=== PATIENT | female | born 1940 | race Caucasian/White ===

== ENCOUNTER 2022-05-05 15:29 | Emergency (ER) | payer OTHER, MEDICAID ==
[~2022-05-05] VITALS: Ht 165.1 cm; Wt 78.0 kg
[2022-05-05 19:06] VITALS: BP 130/52
== END 2022-05-05 19:41 | disposition home or self-care (01) ==
LOC: EDBD 15:29 → EDUNIT# 15:29 → ER 15:29
DX: T18.128A Food in esophagus causing other injury, initial encounter (principal); K22.9 Disease of esophagus, unspecified; X58.XXXA Exposure to other specified factors, initial encounter; Y93.89 Activity, other specified; Y92.89 Other specified places as the place of occurrence of the external cause; Y99.8 Other external cause status
CPT/HCPCS: 70490

== ENCOUNTER 2022-12-21 15:27 | Inpatient (IN) | payer OTHER, MEDICAID ==
[~2022-12-21] VITALS: Ht 160 cm; Wt 80.7 kg
[2022-12-21] MEDS ORDERED: KETOROLAC TROMETH 30 MG/ML 1ML VIAL IV ONE (18:45)
[2022-12-21 19:19] LABS: Albumin 3.1 g/dL (3.4-5.0); Calcium 9.1 mg/dL (8.5-10.1); Potassium 3.7 mmol/L (3.5-5.1)
[2022-12-21 19:22] LABS: BUN/Creatinine Ratio 16.5 (10.0-20.0); Bilirubin, Total 0.3 mg/dL (0.2-1.0); Total Protein 7.6 g/dL (6.4-8.2)
[2022-12-21 19:29] LABS: Basophils # (auto) 0 10 ^3/uL (0-0.2); Basophils % (auto) 0.6 % (0.0-2.0); Eosinophils # (auto) 0 10 ^3/uL (0-0.8); Eosinophils % (auto) 0.2 % (0.0-7.0); Hematocrit 36.4 % (36.0-46.0); Hemoglobin 12.4 g/dL (12.2-16.2); Lymphocytes # (auto) 0.8 10 ^3/uL (0.4-5.4); Lymphocytes % (auto) 12.7 % (10.0-50.0); Mean Corpuscular Hemoglobin 28.8 pg (28.0-32.0); Mean Corpuscular Hgb Conc. 33.9 g/dL (32.0-36.0); Monocytes # (auto) 0.2 10 ^3/uL (0-1.3); Monocytes % (auto) 3.4 % (0.0-12.0); Neutrophils # (auto) 5.4 10 ^3/uL (1.6-8.6); Neutrophils % (auto) 83.1 % (37.0-80.0); Nucleated Red Blood Cells % 0.1 %; Red Blood Cells 4.28 10^6/uL (4.0-5.20); Red Cell Distribution Width 14.4 % (11.8-14.3); White Blood Cell 6.5 10^3/uL (4.4-10.8)
[2022-12-21 20:33] LABS: Urine Amorphous Crystal FEW /hpf (None Seen); Urine Bacteria NONE SEEN /hpf (None Seen); Urine Blood 1+ /uL (Negative); Urine Mucus FEW (None Seen); Urine Specific Gravity 1.016 (1.001-1.035); Urine WBC 47 /hpf (0 - 5)
[2022-12-22] MEDS ORDERED: cefTRIAXone 1GM/50ML D5W 50 ML IV ONE (02:00)
[2022-12-22] MEDS ORDERED: hydrALAZINE HCL 20 MG/ML VL IV ONE (03:15)
[2022-12-22] MEDS ORDERED: ACETAMINOPHEN 325 MG TAB PO PRN (05:15)
[2022-12-22] MEDS ORDERED: LORazepam 0.5 MG TAB PO ONE (05:15)
[2022-12-22] MEDS ORDERED: cloNIDine HCL 0.1 MG TAB PO PRN (05:15)
[2022-12-22] MEDS: HYDROcodone-ACET 5/325MG TAB PO PRN (06:13)
[2022-12-22] MEDS: MORPHINE SULFATE INJ 2 MG/ml SYRG IV PRN ×2 (09:36→16:44)
[2022-12-22] MEDS: PANTOPRAZOLE 40 MG TAB PO SCH (10:10)
[2022-12-22] MEDS: METOPROLOL SUCCINATE XL 50 MG TAB PO SCH (10:10)
[2022-12-22] MEDS: CLOPIDOGREL BISULFATE 75 MG TAB PO SCH (10:10)
[2022-12-22] MEDS ORDERED: DOCUSATE SOD 100 MG CAP PO PRN (14:30)
[2022-12-22] MEDS ORDERED: ONDANSETRON HCL 4 MG/2 ML VIAL IV PRN (14:30)
[2022-12-22] MEDS ORDERED: LOSARTAN POTASSIUM 50 MG TAB PO ONE (14:30)
[2022-12-22] MEDS ORDERED: DEXTROSE (50%) 50ML SYRG IV PRN (14:30)
[2022-12-22] MEDS: ACCU-CHEK COMFORT CURVE STRIP VI SCH (18:54)
[2022-12-22] MEDS: InsuLIN REG 1unit/0.01ml Soln (100units/ml) SC SCH (18:55)
[2022-12-22] MEDS ORDERED: CYAN500L3 PO (19:18)
[2022-12-22] MEDS ORDERED: DULO60CA PO (19:18)
[2022-12-22] MEDS ORDERED: ASCO500T11 PO (19:18)
[2022-12-22] MEDS ORDERED: METO25TA93 PO (19:18)
[2022-12-22] MEDS ORDERED: VITA200T2 PO (19:18)
[2022-12-22] MEDS ORDERED: CLOP75TA70 PO (19:18)
[2022-12-22] MEDS ORDERED: GABA300C10 PO (19:18)
[2022-12-22] MEDS ORDERED: ATO40T PO (19:18)
[2022-12-22] MEDS ORDERED: CHOL20007 PO (19:18)
[2022-12-22] MEDS ORDERED: ASPI-543 PO (19:18)
[2022-12-22] MEDS ORDERED: SERT50TA19 PO (19:18)
[2022-12-22] MEDS ORDERED: ZONI100C43 PO (19:18)
[2022-12-22] MEDS ORDERED: FURO40TA4 PO (19:18)
[2022-12-22 21:46] VITALS: BP 162/69
[2022-12-22] MEDS: cefTRIAXone 1GM/50ML D5W 50 ML IV SCH (22:09)
[2022-12-22] MEDS: HYDROmorphone HCL 2 MG/ML VL/or syr IV PRN (22:09)
[2022-12-22] MEDS: ATORVASTATIN 20 MG TAB PO SCH (22:13)
[2022-12-23] MEDS: InsuLIN REG 1unit/0.01ml Soln (100units/ml) SC SCH ×5 (00:08→23:13)
[2022-12-23] MEDS: ACCU-CHEK COMFORT CURVE STRIP VI SCH ×5 (00:08→23:13)
[2022-12-23] MEDS: HYDROmorphone HCL 2 MG/ML VL/or syr IV PRN ×4 (04:06→22:49)
[2022-12-23 05:00] VITALS: BP 179/78
[2022-12-23 06:31] LABS: INR 1.03 (0.9-1.15); Partial Thromboplastin Time 30.4 sec (24.6-33.4)
[2022-12-23 06:34] LABS: BUN/Creatinine Ratio 19.6 (10.0-20.0); Calcium 9.3 mg/dL (8.5-10.1); Potassium 3.4 mmol/L (3.5-5.1)
[2022-12-23 06:37] LABS: Basophils # (auto) 0 10 ^3/uL (0-0.2); Basophils % (auto) 0.3 % (0.0-2.0); Eosinophils # (auto) 0.1 10 ^3/uL (0-0.8); Eosinophils % (auto) 1.3 % (0.0-7.0); Hematocrit 38.6 % (36.0-46.0); Hemoglobin 12.8 g/dL (12.2-16.2); Lymphocytes # (auto) 1.3 10 ^3/uL (0.4-5.4); Lymphocytes % (auto) 18.9 % (10.0-50.0); Mean Corpuscular Hemoglobin 28.5 pg (28.0-32.0); Mean Corpuscular Hgb Conc. 33.1 g/dL (32.0-36.0); Mean Corpuscular Volume 86.2 fL (80.0-100.0); Monocytes # (auto) 0.4 10 ^3/uL (0-1.3); Monocytes % (auto) 6.2 % (0.0-12.0); Neutrophils # (auto) 4.9 10 ^3/uL (1.6-8.6); Neutrophils % (auto) 73.3 % (37.0-80.0); Nucleated Red Blood Cells % 0.2 %; Red Blood Cells 4.48 10^6/uL (4.0-5.20); Red Cell Distribution Width 14.2 % (11.8-14.3); White Blood Cell 6.7 10^3/uL (4.4-10.8)
[2022-12-23 08:30] VITALS: BP 166/77
[2022-12-23] MEDS: PANTOPRAZOLE 40 MG TAB PO SCH (08:53)
[2022-12-23] MEDS: LOSARTAN POTASSIUM 50 MG TAB PO SCH (08:56)
[2022-12-23] MEDS: CLOPIDOGREL BISULFATE 75 MG TAB PO SCH (08:57)
[2022-12-23] MEDS: METOPROLOL SUCCINATE XL 50 MG TAB PO SCH (08:57)
[2022-12-23] MEDS ORDERED: DULoxetine HCL 30 MG CAP PO ONE (12:00)
[2022-12-23] MEDS ORDERED: POTASSIUM CHLORIDE 20 MEQ, LIDOCAINE 1% (LOCAL ANESTH.) 2 ML in SODIUM CHL 0.9% 100 ML IV ONE (12:00)
[2022-12-23 13:30] VITALS: BP 162/77
[2022-12-23] MEDS: GABAPENTIN 300 MG CAP PO SCH ×2 (13:41→21:42)
[2022-12-23 16:30] VITALS: BP 174/69
[2022-12-23] MEDS ORDERED: FUROSEMIDE 40 MG/4 ML VIAL IV ONE (17:15)
[2022-12-23] MEDS: cefTRIAXone 1GM/50ML D5W 50 ML IV SCH (21:42)
[2022-12-23] MEDS: ATORVASTATIN 20 MG TAB PO SCH (21:42)
[2022-12-23 22:00] VITALS: BP 157/57
[2022-12-24 05:00] VITALS: BP 133/62
[2022-12-24] MEDS: InsuLIN REG 1unit/0.01ml Soln (100units/ml) SC SCH ×4 (06:00→23:32)
[2022-12-24 06:13] LABS: Basophils # (auto) 0 10 ^3/uL (0-0.2); Basophils % (auto) 0.4 % (0.0-2.0); Eosinophils # (auto) 0.1 10 ^3/uL (0-0.8); Eosinophils % (auto) 1.8 % (0.0-7.0); Hemoglobin 12.7 g/dL (12.2-16.2); Lymphocytes # (auto) 1.3 10 ^3/uL (0.4-5.4); Mean Corpuscular Hemoglobin 28.9 pg (28.0-32.0); Mean Corpuscular Hgb Conc. 33.5 g/dL (32.0-36.0); Mean Corpuscular Volume 86.3 fL (80.0-100.0); Monocytes # (auto) 0.5 10 ^3/uL (0-1.3); Monocytes % (auto) 7.5 % (0.0-12.0); Neutrophils # (auto) 4.7 10 ^3/uL (1.6-8.6); Neutrophils % (auto) 70.3 % (37.0-80.0); Nucleated Red Blood Cells % 0.1 %; Red Cell Distribution Width 14.5 % (11.8-14.3); White Blood Cell 6.7 10^3/uL (4.4-10.8)
[2022-12-24 06:30] LABS: Potassium 3.4 mmol/L (3.5-5.1)
[2022-12-24 06:35] LABS: BUN/Creatinine Ratio 20.6 (10.0-20.0); Calcium 9.1 mg/dL (8.5-10.1)
[2022-12-24] MEDS: GABAPENTIN 300 MG CAP PO SCH ×3 (06:53→21:40)
[2022-12-24] MEDS: ACCU-CHEK COMFORT CURVE STRIP VI SCH ×4 (06:53→23:32)
[2022-12-24 09:00] VITALS: BP 138/49
[2022-12-24] MEDS: METOPROLOL SUCCINATE XL 50 MG TAB PO SCH (10:15)
[2022-12-24] MEDS: SERTRALINE HCL 50 MG TAB PO SCH (10:15)
[2022-12-24] MEDS: DULoxetine HCL 30 MG CAP PO SCH (10:15)
[2022-12-24] MEDS: LOSARTAN POTASSIUM 50 MG TAB PO SCH (10:16)
[2022-12-24] MEDS: LORazepam 0.5 MG TAB PO PRN (10:16)
[2022-12-24] MEDS: CLOPIDOGREL BISULFATE 75 MG TAB PO SCH (10:16)
[2022-12-24] MEDS ORDERED: POTASSIUM CHL 20 Meq TABLET PO ONE (12:45)
[2022-12-24 13:00] VITALS: BP 133/62
[2022-12-24] MEDS: HYDROcodone-ACET 5/325MG TAB PO PRN (15:02)
[2022-12-24 17:00] VITALS: BP 137/70
[2022-12-24] MEDS: cefTRIAXone 1GM/50ML D5W 50 ML IV SCH (21:39)
[2022-12-24] MEDS: ATORVASTATIN 20 MG TAB PO SCH (21:39)
[2022-12-24 22:00] VITALS: BP 100/44
[2022-12-25 05:00] VITALS: BP 119/58
[2022-12-25 06:12] LABS: BUN/Creatinine Ratio 28.7 (10.0-20.0); Calcium 9.2 mg/dL (8.5-10.1); Potassium 3.9 mmol/L (3.5-5.1)
[2022-12-25] MEDS: InsuLIN REG 1unit/0.01ml Soln (100units/ml) SC SCH ×4 (06:32→23:50)
[2022-12-25] MEDS: GABAPENTIN 300 MG CAP PO SCH ×3 (06:41→22:10)
[2022-12-25] MEDS: ACCU-CHEK COMFORT CURVE STRIP VI SCH ×4 (06:41→23:50)
[2022-12-25 08:55] VITALS: BP 133/75
[2022-12-25] MEDS: CLOPIDOGREL BISULFATE 75 MG TAB PO SCH (10:02)
[2022-12-25] MEDS: SERTRALINE HCL 50 MG TAB PO SCH (10:02)
[2022-12-25] MEDS: LOSARTAN POTASSIUM 50 MG TAB PO SCH (10:02)
[2022-12-25] MEDS: METOPROLOL SUCCINATE XL 50 MG TAB PO SCH (10:03)
[2022-12-25] MEDS: DULoxetine HCL 30 MG CAP PO SCH (10:05)
[2022-12-25 12:50] VITALS: BP 147/96
[2022-12-25 16:50] VITALS: BP 118/65
[2022-12-25 22:00] VITALS: BP 139/56
[2022-12-25] MEDS: cefTRIAXone 1GM/50ML D5W 50 ML IV SCH (22:09)
[2022-12-25] MEDS: HYDROcodone-ACET 5/325MG TAB PO PRN (22:10)
[2022-12-25] MEDS: ATORVASTATIN 20 MG TAB PO SCH (22:10)
[2022-12-26 05:00] VITALS: BP 157/78
[2022-12-26] MEDS: InsuLIN REG 1unit/0.01ml Soln (100units/ml) SC SCH ×4 (06:00→23:22)
[2022-12-26 06:12] LABS: Basophils # (auto) 0 10 ^3/uL (0-0.2); Basophils % (auto) 0.4 % (0.0-2.0); Eosinophils # (auto) 0.2 10 ^3/uL (0-0.8); Eosinophils % (auto) 2.4 % (0.0-7.0); Hematocrit 39.1 % (36.0-46.0); Lymphocytes # (auto) 1.6 10 ^3/uL (0.4-5.4); Lymphocytes % (auto) 24.8 % (10.0-50.0); Mean Corpuscular Hemoglobin 28.5 pg (28.0-32.0); Mean Corpuscular Hgb Conc. 33.2 g/dL (32.0-36.0); Mean Corpuscular Volume 85.9 fL (80.0-100.0); Monocytes # (auto) 0.5 10 ^3/uL (0-1.3); Monocytes % (auto) 7.8 % (0.0-12.0); Neutrophils # (auto) 4.1 10 ^3/uL (1.6-8.6); Neutrophils % (auto) 64.6 % (37.0-80.0); Nucleated Red Blood Cells % 0.1 %; Red Blood Cells 4.55 10^6/uL (4.0-5.20); Red Cell Distribution Width 14.6 % (11.8-14.3); White Blood Cell 6.4 10^3/uL (4.4-10.8)
[2022-12-26 06:23] LABS: Albumin 3.1 g/dL (3.4-5.0); Calcium 8.8 mg/dL (8.5-10.1); Magnesium 2.5 mg/dL (1.6-2.6); Potassium 3.8 mmol/L (3.5-5.1)
[2022-12-26 06:28] LABS: BUN/Creatinine Ratio 27.2 (10.0-20.0); Bilirubin, Total 0.4 mg/dL (0.2-1.0); Phosphorus 3.8 mg/dL (2.5-4.90); Total Protein 7.3 g/dL (6.4-8.2)
[2022-12-26] MEDS: GABAPENTIN 300 MG CAP PO SCH ×3 (07:00→21:26)
[2022-12-26] MEDS: ACCU-CHEK COMFORT CURVE STRIP VI SCH ×4 (07:00→23:22)
[2022-12-26 09:00] VITALS: BP 160/60
[2022-12-26] MEDS: CLOPIDOGREL BISULFATE 75 MG TAB PO SCH (09:12)
[2022-12-26] MEDS: DULoxetine HCL 30 MG CAP PO SCH (09:12)
[2022-12-26] MEDS: METOPROLOL SUCCINATE XL 50 MG TAB PO SCH (09:13)
[2022-12-26] MEDS: LOSARTAN POTASSIUM 50 MG TAB PO SCH (09:13)
[2022-12-26] MEDS: SERTRALINE HCL 50 MG TAB PO SCH (09:13)
[2022-12-26] MEDS ORDERED: MORPHINE SULFATE INJ 2 MG/ml SYRG IV PRN (12:30)
[2022-12-26 13:00] VITALS: BP 125/59
[2022-12-26] MEDS: HYDROcodone-ACET 5/325MG TAB PO PRN (13:14)
[2022-12-26 16:55] VITALS: BP 129/47
[2022-12-26] MEDS: cefTRIAXone 1GM/50ML D5W 50 ML IV SCH (21:26)
[2022-12-26] MEDS: ATORVASTATIN 20 MG TAB PO SCH (21:26)
[2022-12-26 22:00] VITALS: BP 117/52
[2022-12-27 05:02] VITALS: BP 106/49
[2022-12-27] MEDS: GABAPENTIN 300 MG CAP PO SCH ×3 (06:13→21:30)
[2022-12-27] MEDS: ACCU-CHEK COMFORT CURVE STRIP VI SCH ×4 (06:13→23:22)
[2022-12-27] MEDS: InsuLIN REG 1unit/0.01ml Soln (100units/ml) SC SCH ×4 (06:17→23:24)
[2022-12-27 08:21] VITALS: BP 118/46
[2022-12-27] MEDS: DULoxetine HCL 30 MG CAP PO SCH (09:40)
[2022-12-27] MEDS: SERTRALINE HCL 50 MG TAB PO SCH (09:41)
[2022-12-27] MEDS: CLOPIDOGREL BISULFATE 75 MG TAB PO SCH (09:42)
[2022-12-27] MEDS: METOPROLOL SUCCINATE XL 50 MG TAB PO SCH (09:44)
[2022-12-27] MEDS: LOSARTAN POTASSIUM 50 MG TAB PO SCH (09:45)
[2022-12-27] MEDS: HYDROcodone-ACET 5/325MG TAB PO PRN (09:55)
[2022-12-27 12:32] VITALS: BP 137/59
[2022-12-27] MEDS: LORazepam 0.5 MG TAB PO PRN (14:19)
[2022-12-27 16:37] VITALS: BP 115/64
[2022-12-27] MEDS: ATORVASTATIN 20 MG TAB PO SCH (21:30)
[2022-12-27] MEDS: cefTRIAXone 1GM/50ML D5W 50 ML IV SCH (21:30)
[2022-12-27 22:00] VITALS: BP 123/45
[2022-12-28 04:51] VITALS: BP 128/61
[2022-12-28] MEDS: GABAPENTIN 300 MG CAP PO SCH ×2 (05:24→14:11)
[2022-12-28] MEDS: ACCU-CHEK COMFORT CURVE STRIP VI SCH ×3 (05:29→17:59)
[2022-12-28] MEDS: InsuLIN REG 1unit/0.01ml Soln (100units/ml) SC SCH ×3 (05:32→18:00)
[2022-12-28 09:00] VITALS: BP 139/56
[2022-12-28] MEDS: METOPROLOL SUCCINATE XL 50 MG TAB PO SCH (10:00)
[2022-12-28] MEDS: CLOPIDOGREL BISULFATE 75 MG TAB PO SCH (10:14)
[2022-12-28] MEDS: LOSARTAN POTASSIUM 50 MG TAB PO SCH (10:14)
[2022-12-28] MEDS: SERTRALINE HCL 50 MG TAB PO SCH (10:14)
[2022-12-28] MEDS: DULoxetine HCL 30 MG CAP PO SCH (10:14)
[2022-12-28 12:40] VITALS: BP 153/80
[2022-12-28] MEDS ORDERED: CELE200C PO (13:54)
[2022-12-28] MEDS ORDERED: CELECOXIB 100 MG CAP PO ONE (14:00)
[2022-12-28 16:08] VITALS: BP 139/52
[2022-12-28 16:28] VITALS: BP 139/52
== END 2022-12-28 20:22 | disposition home or self-care (01) | DRG 690 ==
LOC: ER 15:27 → EDBD 15:27 → EDUNIT# 15:27 → OVERFLOW 12-22 05:06 → WEST WING 12-22 18:06
PROVIDERS: ADMIT Nurse Practitioner; ATTEND Internal Medicine
DX: N13.6 Pyonephrosis (principal); E44.0 Moderate protein-calorie malnutrition; E11.42 Type 2 diabetes mellitus with diabetic polyneuropathy; I10 Essential (primary) hypertension; I25.10 Atherosclerotic heart disease of native coronary artery without angina pectoris; Z95.1 Presence of aortocoronary bypass graft; N13.9 Obstructive and reflux uropathy, unspecified; F32.A Depression, unspecified; E66.9 Obesity, unspecified; M19.90 Unspecified osteoarthritis, unspecified site; M47.9 Spondylosis, unspecified; E78.5 Hyperlipidemia, unspecified; J44.9 Chronic obstructive pulmonary disease, unspecified; Z68.31 Body mass index [BMI] 31.0-31.9, adult
CPT/HCPCS: 36415; 71045; 72192; 73502; 76775; 78707; 80048; 80053; 81001; 82962; 83036; 83735; 84100; 84132; 85025; 85610; 85730; 87086; 87426; 93306; 96365; 96375; 97110; 97116; 97163; 97530; G0378; J0696; J1815; J1885; J2001

== ENCOUNTER 2023-04-11 13:04 | Emergency (ER) | payer OTHER, MEDICAID ==
[~2023-04-11] VITALS: Ht 162.6 cm; Wt 72.7 kg
[~2023-04-11 13:04] MED LIST: ASCO500T11 PO; ASPI-543 PO; ATO40T PO; CELE200C PO; CHOL20007 PO; CLOP75TA70 PO; CYAN500L4 PO; DULO60CA41 PO; FURO40TA4 PO; GABA-1250 PO; METO25TA93 PO; SERT-206 PO; VITA200T2 PO; ZONI100C43 PO
[2023-04-11 14:38] LABS: Basophils # (auto) 0 10 ^3/uL (0-0.2); Basophils % (auto) 0.5 % (0.0-2.0); Eosinophils # (auto) 0.2 10 ^3/uL (0-0.8); Eosinophils % (auto) 3.4 % (0.0-7.0); Hematocrit 36.8 % (36.0-46.0); Hemoglobin 11.9 g/dL (12.2-16.2); Lymphocytes # (auto) 1.5 10 ^3/uL (0.4-5.4); Lymphocytes % (auto) 21.4 % (10.0-50.0); Mean Corpuscular Hgb Conc. 32.3 g/dL (32.0-36.0); Mean Corpuscular Volume 89.8 fL (80.0-100.0); Monocytes # (auto) 0.6 10 ^3/uL (0-1.3); Neutrophils # (auto) 4.7 10 ^3/uL (1.6-8.6); Neutrophils % (auto) 66.7 % (37.0-80.0); Nucleated Red Blood Cells % 0.1 %; Red Blood Cells 4.09 10^6/uL (4.0-5.20); Red Cell Distribution Width 15.1 % (11.8-14.3); White Blood Cell 7.1 10^3/uL (4.4-10.8)
[2023-04-11 15:01] LABS: Calcium 8.7 mg/dL (8.5-10.1); Potassium 3.6 mmol/L (3.5-5.1)
[2023-04-11 15:07] LABS: Albumin 3.4 g/dL (3.4-5.0); BUN/Creatinine Ratio 12.4 (10.0-20.0); Bilirubin, Total 0.3 mg/dL (0.2-1.0); Total Protein 7.5 g/dL (6.4-8.2)
[2023-04-11 16:22] LABS: INR 1.03 (0.9-1.15)
[2023-04-11] MEDS ORDERED: DOXY-286 PO (17:29)
[2023-04-11] MEDS ORDERED: DOXYCYCLINE 100 MG TAB/CAP PO ONE (17:30)
[2023-04-11 18:29] VITALS: BP 131/62; PULSE 81; RESP 17; O2SAT 93
== END 2023-04-11 18:32 | disposition home or self-care (01) ==
LOC: EDBD 13:04 → ER 13:04
DX: L03.116 Cellulitis of left lower limb (principal); R22.42 Localized swelling, mass and lump, left lower limb; Z87.442 Personal history of urinary calculi; Z98.890 Other specified postprocedural states; Z79.82 Long term (current) use of aspirin; Z79.899 Other long term (current) drug therapy
CPT/HCPCS: 36415; 71275; 80053; 83880; 85025; 85379; 85610; 85730; 93971; 99285; Q9967

== ENCOUNTER → 2023-07-25 | Outpatient (CLI) | payer OTHER ==
[~2023-07-25] MED LIST changes: +BUPR-346 PO; +CLIN150C PO; +CLOP75TA28 PO; +FURO1TAB31 PO; +SPIR25TA PO
== END | disposition home or self-care (01) ==
LOC: Rad HDHVI 12:58
PROVIDERS: ATTEND Internal Medicine Cardiovascular Disease
DX: I08.3 Combined rheumatic disorders of mitral, aortic and tricuspid valves (principal); I50.32 Chronic diastolic (congestive) heart failure; E78.5 Hyperlipidemia, unspecified
CPT/HCPCS: 93306

== ENCOUNTER 2024-09-10 14:25 | Inpatient (IN) | payer OTHER, MEDICAID ==
[~2024-09-10] VITALS: Ht 160 cm; Wt 78.1 kg
[~2024-09-10 14:25] MED LIST changes: -ATO40T PO; +ATOR-507 PO; +ATOR10TA PO; +GLIP5TAB21 PO; +HYDR-4798 PO; +HYDR50TA69 PO; +SPIR25TA8 PO
--- NOTE | 2024-09-10 16:18 | ED.PDOC ---
Foreign Body HPI Comments 83 year old female patient in wheelchair brought in by caregiver to the emergency room for a sensation in the middle of chest. Patient states that she was eating a cookie on Monday and felt it get stuck in her chest. Patient states that this has happened to her previously and she has had to make herself vomit to get the piece of food out. Patient states that she has difficulty with chewing food because she does not wear her dentures. Patient usually gums her food or eats mushy foods so that she does not choke. Patient denies any burning sensations in her chest. Patient denies any shortness of breath. Patient states that she feels like there is something is in her chest near the midsternal area. Patient states that when she tries to eat or drink anything it causes her to vomit or spit it up. Chief Complaint: Foreign Body Time Seen by MD: 14:42 Primary Care Provider: ABEL Allergies: Coded Allergies: NO KNOWN ALLERGIES (Unverified , 12/22/22) Home Meds Active Scripts Spironolactone (Aldactone) 25 Mg Tab, 25 MG PO DAILY for 30 Days, #30 TAB Prov:ANA MARIA KIRK MD 05/08/23 Clindamycin Hcl (CLEOCIN) 150 Mg Cap, 1 CAP PO TID, #30 CAP Prov:DIXIE MORAN MD 04/27/23 Celecoxib (Celebrex) 200 Mg Cap, 200 MG PO DAILY for 30 Days, #30 CAP Prov:MAURA NICOLE MD 12/28/22 Reported Medications Bupropion Hcl (Bupropion Hcl) 100 Mg Tab, 300 MG PO HS, TAB 05/05/23 Furosemide (Lasix) 40 Mg Tab, 40 MG PO DAILY, TAB 05/05/23 Gabapentin (Gabapentin) 300 Mg Cap, 300 MG PO TID for 30 Days, MG 05/05/23 Atorvastatin Calcium (Lipitor) 40 Mg Tab, 40 MG PO HS, TAB 05/05/23 Duloxetine Hcl (Cymbalta) 60 Mg Cap, 60 MG PO HS, CAP 05/05/23 Clopidogrel Bisulfate (Plavix) 75 Mg Tab, 75 MG PO HS, TAB 05/05/23 Zonisamide (Zonisamide) 100 Mg Cap, 100 MG PO HS, CAP 05/05/23 Cholecalciferol (VITAMIN D3) 2,000 Unit Tab, 1000 UNIT PO DAILY, TAB 12/22/22 Ascorbic Acid (VITAMIN C TABLET) 500 Mg Tb, 2 TAB PO DAILY, #30 TAB 3 Refills 12/22/22 Cyanocobalamin (Vitamin B 12) 500 Mcg Julián, 1000 MCG PO DAILY, JULIÁN 12/22/22 Alpha Tocopheryl Acid Succinat (VITAMIN E) 200 Unit Tab, 180 UNIT PO DAILY, TAB 12/22/22 Aspirin (Aspir-Low) 81 Mg Tab, 81 MG PO DAILY for 30 Days, MG 12/22/22 Sertraline Hcl (Sertraline Hcl) 50 Mg Tab, 100 MG PO DAILY, MG 12/22/22 Metoprolol Succinate (Metoprolol Succinate Er) 25 Mg Tab, 1 TAB PO DAILY, #30 TAB 5 Refills 12/22/22 Furosemide (Furosemide) 40 Mg Tab, 40 MG PO DAILY for 30 Days 12/22/22 Gabapentin (Gabapentin) 300 Mg Cap, 600 MG PO TID for 30 Days, MG 12/22/22 Atorvastatin Calcium (Lipitor) 40 Mg Tab, 1 TAB PO QPM, #90 TAB 1 Refill 12/22/22 Duloxetine Hcl (Cymbalta) 60 Mg Cap, 1 CAP PO HS, #90 CAP 3 Refills 12/22/22 Clopidogrel Bisulfate (CLOPIDOGREL) 75 Mg Tab, 75 MG PO HS for 30 Days, MG 12/22/22 Zonisamide (Zonisamide) 100 Mg Cap, 100 MG PO HS, CAP 12/22/22 Mode of Arrival: Ambulatory Past Medical History PAST MEDICAL HISTORY: Cancer, CHF, CKF, COPD, CVA, High Lipids, Kidney Stones Surgical History: Appendectomy, CABG, Cholecystectomy, Hysterectomy, Tonsillectomy NEWS ASSIGNMENT EDITOR History: No Pertinent NEWS ASSIGNMENT EDITOR History Family History Family History: Reviewed,noncontributory to illness, No family hx of Cancer, No family hx of DM, No family hx of Heart heath, No family hx of HTN, No family hx ofKidney heath, No family hx of Liver heath, No family hx of Lung heath, No family hx of Stroke Social History Smoker: Non-Smoker Alcohol: Denies ETOH Use Drugs: Denies Drug Use Lives In: Home Constitutional: denies: chills, diaphoresis, fatigue, fever, malaise, sweats, weakness, others EENTM: denies: blurred vision, double vision, ear bleeding, ear discharge, ear drainage, ear pain, ear ringing, eye pain, eye redness, hearing loss, mouth pain, mouth swelling, nasal discharge, nose bleeding, nose congestion, nose pain, photophobia, tearing, throat pain, throat swelling, voice changes, others Respiratory: denies: cough, hemoptysis, orthopnea, SOB at rest, shortness of breath, SOB with excertion, stridor, wheezing, others Gastrointestinal: reports: dysphagia, difficulty swallowing, vomiting; denies: abdomen distended, abdominal pain, blood streaked bowels, constipated, diarrhea, hematemesis, melena, nausea, poor appetite, poor fluid intake, rectal bleeding, rectal pain, others Genitourinary: denies: abnormal vagina bleeding, burning, dyspareunia, dysuria, flank pain, frequency, hematuria, incontinence, pain, , vagina discharge, urgency, others Neurological: denies: dizziness, fainting, headache, left sided numbness, left sided weakness, numbness, paresthesia, pre-existing deficit, right sided numbness, right sided weakness, seizure, speech problems, tingling, tremors, weakness, others Musculoskeletal: denies: back pain, gout, joint pain, joint swelling, muscle pain, muscle stiffness, neck pain, others Integumetry: denies: bruises, change in color, change in hair/nails, dryness, laceration, lesions, lumps, rash, wounds, others Allergic/Immunocompromised: denies: Difficulty Healing, Frequent Infections, Hives, Itching, others Hematologic/Lymphatic: denies: anemia, blood clots, easy bleeding, easy bruising, swollen glands, others Endocrine: denies: excessive hunger, excessive sweating, excessive thirst, excessive urination, flushing, intolerance to cold, intolerance to heat, unexplained weight gain, unexplained weight loss, others Psychiatric: denies: anxiety, bipolar disorder, depression, hopeless, panic disorder, schizophrenia, sleepless, suicidal, others All Other Systems: Reviewed and Negative Physical Exam General Appearance: No Apparent Distress, Normal HEENT: Normal ENT Inspection, Pharynx Normal, TMs Normal Neck: Full Range of Motion, Non-Tender, Normal, Normal Inspection Respiratory: Lungs Clear, No Accessory Muscle Use, No Respiratory Distress, Normal Breath Sounds, Other (tenderness to the midsternal area) Cardiovascular: No Edema, No JVD, No Murmur, No Gallop, Normal Peripheral Pulses, Regular Rate/Rhythm Breast Exam: Deferred Gastrointestinal: No Organomegaly, Non Tender, No Pulsatile Mass, Normal Bowel Sounds, Soft Genitalia: Deferred Pelvic: Deferred Rectal: Deferred Extremities: No calf tenderness, Normal capillary refill, Normal inspection, Normal range of motion, Non-tender, No pedal edema Musculoskeletal : Apperance: Normal Neurologic: Alert, dock attendant II-XII nml as Tested, No Motor Deficits, Normal Affect, Normal Mood, No Sensory Deficits Cerebellar Function: Normal Reflexes: Normal Skin: Dry, Normal Color, Warm Lymphatic: No Adenopathy Was a procedure done? Was a procedure done?: No FB Differential Dx Differential Diagnosis: Esophageal Obstruction, Foreign Body, Other (aspiration pneumonia, esophageal strictures) X-Ray, Labs, Meds, VS Vital Signs Date Time Temp Pulse Resp B/P (MAP) Pulse Ox O2 Delivery O2 Flow Rate FiO2 09/10/24 14:33 97.9 82 20 142/87 (105) 99 PATIENT: DELONTE GLORIA ACCT: [id number] UNIT: [id number] : 1940 LOC: ER ROOM / BED: / AGE / SEX: 84 / F ADM STATUS: REG ER SERVICE 1548 ORDERING PHYSICIAN: NICO MORILLO PROCEDURE(s): CXR2 - CHEST TWO VIEWS ROUTINE REASON: FB AFTER EATING ORDER NUMBER(s): [id number], ACCESSION NUMBER(s): [id number] XY CHEST TWO VIEWS ROUTINE CLINICAL HISTORY: FB AFTER EATING COMPARISON: Chest radiograph 05/04/2023 TECHNIQUE: Frontal and lateral view of the chest was obtained FINDINGS: Lines and Tubes: None. Midline sternotomy wires vascular clips projecting over the heart and mediastinum, suggestive of prior CABG. Lungs: Right cardiophrenic angle patchy opacities.. Diffuse bilateral interstitial opacities. Pleura: No effusion. No pneumothorax. Cardiomediastinal contours: Unremarkable Bones: No acute osseous abnormality. IMPRESSION: 1. No definite radiopaque esophageal foreign body is appreciated. 2. Right cardiophrenic angle alveolar opacities with diffuse bilateral interstitial prominence. Findings could represent aspiration / infiltrate, pulmonary vascular congestion atypical infection, chronic interstitial disease with superimposed consolidation, and/or pneumonitis. HS:Y ATED BY: NATALIE BOX DO DICTATED DATE/TIME: 09/10/241621 SIGNED BY: NATALIE BOX DO SIGNED DATE/TIME: 09/10/241621 CC: X-Ray, Labs, Meds, VS Comment Patient is sitting up in wheelchair with caregiver at bedside. Patient has no emesis bag. Patient has had no vomiting or spitting up while waiting in the emergency room. Patient and caregiver given results of the chest x-ray and are aware that his CT scan is necessary. Pt taken to CT of 1637. CT Chest reports aspiration pneumonitis. Pt advised that she will be admitted. Patient advised that we will start antibiotic treatment and the choking monitoring in the hospital. Patient's main concern is that she has a pain pump on her left side. Patient reports that she has had this pain for years due to lower back pain and cervical pain. Time of 1ST Reevaluation: 16:17 Reevaluation 1ST: Unchanged Time of 2ND Reevaluation: 18:06 Reevaluation 2ND: Unchanged Consultation: PCP Patient Education/Counseling: Diagnosis, Treatment, Prognosis, Need For Follow Up Family Education/Counseling: Diagnosis, Treatment, Prognosis, Need For Follow Up Departure 1 Departure Time of Disposition: 17:29 Impression: Primary Impression: Aspiration pneumonia Additional Impression: Ground glass opacity present on imaging of lung Disposition: ADMITTED INPATIENT Condition: Stable Critical Care Note Critical Care Time?: No Stability Stability form required: No Heart Score Heart Score: Heart Score Response (Comments) Value History N/A 0 EKG N/A 0 Age N/A 0 Risk Factors N/A 0 Troponin N/A 0 Total 0 NICO MORILLO Sep 10, 2024 16:18
--- NOTE | 2024-09-10 16:24 | DVH ---
XY CHEST TWO VIEWS ROUTINE CLINICAL HISTORY: FB AFTER EATING COMPARISON: Chest radiograph 05/04/2023 TECHNIQUE: Frontal and lateral view of the chest was obtained FINDINGS: Lines and Tubes: None. Midline sternotomy wires vascular clips projecting over the heart and mediast inum, suggestive of prior CABG. Lungs: Right cardiophrenic angle patchy opacities.. Diffuse bilateral interstitial opacities. Pleura: No effusion. No pneumothorax. Cardiomediastinal contours: Unremarkable Bones: No acute osseous abnormality. IMPRESSION: 1. No definite radiopaque esophageal foreign body is appreciated. 2. Right cardiophrenic angle alveolar opacities with diffuse bilateral interstitial prominence. Findi ngs could represent aspiration / infiltrate, pulmonary vascular congestion atypical infection, chroni c interstitial disease with superimposed consolidation, and/or pneumonitis. HS:Y
--- NOTE | 2024-09-10 17:06 | DVH ---
Procedure: CT CHEST WITHOUT CONTRAST Reason for study/Clinical History: 84 years old, Female; possible aspiration. Comparison Study: None available at time of dictation. Exam Date: 09/10/2024 04:43 PM TECHNIQUE: Multidetector CT of the chest was performed from the lung apices to the upper abdomen with out the use of intravenous contract. Axial, coronal and sagittal multiplanar reformats were performed . Radiation dose Information: CT Dose: CTDI volume is 8.73 mGy. Dose-length product is 301.56 mGy*cm The dose indicators for CT are the volume computed Tomography (CT) dose Index (CTDIvol) and the dose Length product (DLP), and are measured in units of mGy and mGy-cm, respectively. These indicators are not patient dose, but values generated from the CT scanner acquisition factors. The report includes radiation exposure data for exposures received during this examination. FINDINGS: Lower neck: Calcified nodule right thyroid. Lungs: Mild subpleural ground-glass opacity left lower lung. Heart/Vascular Structures: Normal heart size. No pericardial effusion. Severe coronary artery calcifi cations. Lymph Nodes: No adenopathy Pleura: No pleural effusion or significant pneumothorax. Musculoskeletal: No acute osseous abnormality. Soft tissues: Normal. Upper abdomen: Limited portions of the upper abdomen are unremarkable. IMPRESSION: 1. Mild subpleural ground-glass opacity in the left lower lung could represent small focus of aspirat ion pneumonitis. Clinical correlation and continued follow-up is recommended. Radiation optimization: All CT scans at this facility use at least one of these dose optimization jessenia hniques: Automated exposure control mA and/or kV adjustment per patient size (includes targeted exams where dose is matched to clinical indication) or iterative reconstruction. HS:Y
[2024-09-10 18:05] VITALS: RESP 18
[2024-09-10 18:28] VITALS: BP 170/64; PULSE 68; RESP 20; TEMP 97.6; O2SAT 96
[2024-09-10 18:39] LABS: Basophils # (auto) 0 10 ^3/uL (0-0.2); Basophils % (auto) 0.2 % (0.0-2.0); Eosinophils # (auto) 0 10 ^3/uL (0-0.8); Eosinophils % (auto) 0.3 % (0.0-7.0); Hematocrit 38.9 % (36.0-46.0); Hemoglobin 12.8 g/dL (12.2-16.2); Lymphocytes # (auto) 1.2 10 ^3/uL (0.4-5.4); Lymphocytes % (auto) 14.5 % (10.0-50.0); Mean Corpuscular Hemoglobin 29.6 pg (28.0-32.0); Mean Corpuscular Volume 89.7 fL (80.0-100.0); Monocytes # (auto) 0.4 10 ^3/uL (0-1.3); Monocytes % (auto) 4.6 % (0.0-12.0); Neutrophils # (auto) 6.7 10 ^3/uL (1.6-8.6); Neutrophils % (auto) 80.4 % (37.0-80.0); Nucleated Red Blood Cells % 0.1 %; Platelet Count (auto) 309 10^3/uL (140-450); Red Blood Cells 4.34 10^6/uL (4.0-5.20); Red Cell Distribution Width 15.3 % (11.8-14.3); White Blood Cell 8.4 10^3/uL (4.4-10.8)
[2024-09-10 19:04] LABS: Albumin 4.1 g/dL (3.2-4.8); Alkaline Phosphatase 113 U/L (46-116); Anion Gap 12 (5-15); Aspartate Aminotransferase 16 U/L (13-40); BUN/Creatinine Ratio 18.9 (10.0-20.0); Blood Urea Nitrogen 21 mg/dL (9-23); Calcium 9.4 mg/dL (8.7-10.4); Glucose 76 mg/dL (74-106); Potassium 3.9 mmol/L (3.5-5.1); Sodium 145 mmol/L (136-145)
[2024-09-10 19:05] LABS: Bilirubin, Total 0.4 mg/dL (0.2-1.0); Total Protein 7.5 g/dL (5.7-8.2)
[2024-09-10 19:44] LABS: Alanine Aminotransferase 9 U/L (7-40); Carbon Dioxide 20 mmol/L (20-31); Chloride 113 mmol/L (98-107)
[2024-09-10 19:45] VITALS: PULSE 69; RESP 18; O2SAT 98
[2024-09-10] MEDS ORDERED: ACETAMINOPHEN 325 MG TAB PO PRN (20:00)
[2024-09-10] MEDS: AZITHROMYCIN 500MG/ 250ML 250 ML IV ONE (21:25)
[2024-09-10] MEDS: CLINDAMYCIN 600MG IV 50 ML IV SCH (22:00)
[2024-09-10] MEDS: ONDANSETRON HCL 4 MG/2 ML VIAL IV PRN (22:30)
[2024-09-10 23:00] LABS: Urine Bacteria None Seen /hpf (None Seen)
[2024-09-10] MEDS: ATORVASTATIN 20 MG TAB PO SCH (23:09)
[2024-09-10 23:29] LABS: Urine Blood 2+ /uL (Negative); Urine Budding Yeast OCCASIONAL /hpf (None Seen); Urine Clarity Turbid (Clear); Urine Color Yellow (Yellow); Urine Protein, UAD 1+ (Negative); Urine Specific Gravity 1.021 (1.001-1.035); Urine Squamous Epithelial Cell MOD /hpf (<5); Urine Urobilinogen 4 mg/dL (Negative); Urine WBC 71 /hpf (0 - 5); Urine pH 6.5 (5.0-9.0)
--- NOTE | 2024-09-10 23:30 | DVHHP2 ---
History of Present Illness Reason for Visit: Difficulty swallowing History of Present Illness 83-year-old female presents for evaluation of difficulty swelling. Patient reports three days ago she felt food being stuck in throat and began to cough. Subsequently patient started having mild chest pain. She presents for evaluati on of the symptoms. Denies shortness or breath. States having a nonproductive cough. No fever or chills. No other acute complaints. Past Medical History Chronic kidney disease, COPD, CVA, CHF, dyslipidemia cancer Past Surgical History Cholecystectomy, hysterectomy, tonsillectomy, CABG and appendectomy Family History Noncontributory Smoke: No ALCOHOL: none Drugs: None Lives: with Family Review of Systems Review of Systems Review of systems are currently negative otherwise addressed in HPI. Allergies: Coded Allergies: NO KNOWN ALLERGIES (Unverified , 12/22/22) Medications Current Medications Medications Dose Ordered Sig/Dejah Route Start Time Stop Time Status Last Admin Dose Admin Ceftriaxone Sodium 50 ml @ 100 mls/hr DAILY@09 IV 09/11/24 09:00 Clindamycin Phosphate 50 ml @ 50 mls/hr Q8HR IV 09/10/24 22:00 Spironolactone 50 mg DAILY PO 09/11/24 10:00 Clopidogrel Bisulfate 75 mg DAILY PO 09/11/24 10:00 Atorvastatin Calcium 10 mg HS PO 09/10/24 22:00 09/10/24 23:09 10 MG Furosemide 40 mg DAILY PO 09/11/24 10:00 Temazepam 15 mg QHSP PRN PO 09/10/24 20:00 Ondansetron HCl 4 mg Q4HP PRN IV 09/10/24 20:00 09/10/24 22:30 4 MG Enoxaparin Sodium 40 mg DAILY SC 09/11/24 10:00 Acetaminophen 650 mg Q6HP PRN PO 09/10/24 20:00 Hydralazine HCl 10 mg Q6HP PRN IV 09/10/24 23:00 Exam Vital Signs Vital Signs Date Time Temp Pulse Resp B/P (MAP) Pulse Ox O2 Delivery O2 Flow Rate FiO2 09/10/24 23:15 65 16 136/55 (82) 97 09/10/24 19:45 97.8 97.8 09/10/24 19:45 Room Air* 0 21 Exam Gen: 84-year-old female mild distress Skin: Warm, dry, normal color and texture, no rash. HEENT: Normocephalic atraumatic, mucous membranes moist and pink. Neck: Cervical and supraclavicular nodes normal without enlargement, trachea is midline, thyroid gland is normal without masses. Pulmonary: Clear to auscultation and percussion bilaterally. Cardiac: Regular rate and rhythm. No murmur Abdomen: Soft, nontender, nondistended, bowel sounds present all 4 quadrants, no guarding, no rigidity, no organomegaly. Extremities: No cyanosis, clubbing, no edema Neuro: Cranial nerves II through XII grossly intact, normal affect and speech, no focal motor deficits. Labs/Xrays ORDERING PHYSICIAN: NICO MORILLO METAL RIVETER PROCEDURE(s): CX2CT - CHEST WITHOUT CONTRAST REASON: possible aspiration ORDER NUMBER(s): [id number], ACCESSION NUMBER(s): [id number] Procedure: CT CHEST WITHOUT CONTRAST Reason for study/Clinical History: 84 years old, Female; possible aspiration. Comparison Study: None available at time of dictation. Exam Date: 09/10/2024 04:43 PM TECHNIQUE: Multidetector CT of the chest was performed from the lung apices to the upper abdomen without the use of intravenous contract. Axial, coronal and sagittal multiplanar reformats were performed. Radiation dose Information: CT Dose: CTDI volume is 8.73 mGy. Dose-length product is 301.56 mGy*cm The dose indicators for CT are the volume computed Tomography (CT) dose Index (CTDIvol) and the dose Length product (DLP), and are measured in units of mGy and mGy-cm, respectively. These indicators are not patient dose, but values generated from the CT scanner acquisition factors. The report includes radiation exposure data for exposures received during this examination. FINDINGS: Lower neck: Calcified nodule right thyroid. Lungs: Mild subpleural ground-glass opacity left lower lung. Heart/Vascular Structures: Normal heart size. No pericardial effusion. Severe coronary artery calcifications. Lymph Nodes: No adenopathy Pleura: No pleural effusion or significant pneumothorax. Musculoskeletal: No acute osseous abnormality. Soft tissues: Normal. Upper abdomen: Limited portions of the upper abdomen are unremarkable. IMPRESSION: 1. Mild subpleural ground-glass opacity in the left lower lung could represent small focus of aspiration pneumonitis. Clinical correlation and continued follow-up is recommended. Radiation optimization: All CT scans at this facility use at least one of these dose optimization techniques: Automated exposure control mA and/or kV adjustment per patient size (includes targeted exams where dose is matched to clinical indication) or iterative reconstruction. HS:Y Labs Test 09/10/24 20:50 09/10/24 18:22 Range/Units White Blood Count 8.4 4.4-10.8 10^3/uL Red Blood Count 4.34 4.0-5.20 10^6/uL Hemoglobin 12.8 12.2-16.2 g/dL Hematocrit 38.9 36.0-46.0 % Mean Corpuscular Volume 89.7 80.0-100.0 fL Mean Corpuscular Hemoglobin 29.6 28.0-32.0 pg Mean Corpuscular Hemoglobin Concent 33.0 32.0-36.0 g/dL Red Cell Distribution Width 15.3 H 11.8-14.3 % Platelet Count 309 140-450 10^3/uL Mean Platelet Volume 7.0 6.9-10.8 fL Neutrophils (%) (Auto) 80.4 H 37.0-80.0 % Lymphocytes (%) (Auto) 14.5 10.0-50.0 % Monocytes (%) (Auto) 4.6 0.0-12.0 % Eosinophils (%) (Auto) 0.3 0.0-7.0 % Basophils (%) (Auto) 0.2 0.0-2.0 % Neutrophils # (Auto) 6.7 1.6-8.6 10 ^3/uL Lymphocytes # (Auto) 1.2 0.4-5.4 10 ^3/uL Monocytes # (Auto) 0.4 0-1.3 10 ^3/uL Eosinophils # (Auto) 0 0-0.8 10 ^3/uL Basophils # (Auto) 0 0-0.2 10 ^3/uL Nucleated Red Blood Cells 0.1 % Sodium Level 145 136-145 mmol/L Potassium Level 3.9 3.5-5.1 mmol/L Chloride Level 113 H 98-107 mmol/L Carbon Dioxide Level 20 20-31 mmol/L Anion Gap 12 5-15 Blood Urea Nitrogen 21 9-23 mg/dL Creatinine 1.11 H 0.550-1.02 mg/dL Glomerular Filtration Rate Calc 49 >90 mL/min BUN/Creatinine Ratio 18.9 10.0-20.0 Serum Glucose 76 74-106 mg/dL Lactic Acid Level 0.9 0.4-2.0 mmol/L Calcium Level 9.4 8.7-10.4 mg/dL Total Bilirubin 0.4 0.2-1.0 mg/dL Aspartate Amino Transferase (AST) 16 13-40 U/L Alanine Aminotransferase (ALT) 9 7-40 U/L Alkaline Phosphatase 113 46-116 U/L B-Type Natriuretic Peptide 111.86 0-100 pg/mL Total Protein 7.5 5.7-8.2 g/dL Albumin 4.1 3.2-4.8 g/dL Assessment/Plan Assessment/Plan Assessment Possible aspiration pneumonia Acute kidney injury Hypokalemia Accelerated hypertension Plan Admit the patient to [facility] to the hospitalist Rocephin/clindamycin Swallow eval Resume home medications Continue treatment per orders. Plan discussed with: Patient My Orders Orders - MAURA CLARK AGACNP Procedure Category Date Status Time Ceftriaxone 1gm/50ml PHA 09/11/24 In Process D5w (Rocephin) 09:00 Clindamycin 600mg Iv PHA 09/10/24 In Process (Cleocin Iv) 22:00 * Swallow Request ST 09/10/24 Transmitted 19:54 Spironolactone PHA 09/11/24 In Process (Aldactone) 10:00 Clopidogrel Bisulfate PHA 09/11/24 In Process (Plavix) 10:00 Atorvastatin (Lipitor) PHA 09/10/24 In Process 22:00 Furosemide Tablet PHA 09/11/24 In Process (Lasix Tablet) 10:00 Complete Blood Count LAB 09/11/24 Verified 04:00 Condition: Stable JAKY 09/10/24 In Process 19:54 Acetaminophen Tablet PHA 09/10/24 In Process (Tylenol Tablet) 20:00 Bedrest With Bathroom JAKY 09/10/24 In Process Privileg 19:54 Admit ADMIT 09/10/24 Verified 19:54 Temazepam (Restoril) PHA 09/10/24 In Process 20:00 Ondansetron Hcl PHA 09/10/24 In Process (Zofran) 20:00 Enoxaparin Sodium PHA 09/11/24 In Process (Lovenox) 10:00 Basic Metabolic Panel LAB 09/11/24 Verified 04:00 Hydralazine Injection PHA 09/10/24 In Process (Apresoline Inject 23:00 Date of Service: Sep 10, 2024 Billing Provider: MAURA CLARK Common Visit Codes: [id number] INP/OBS CARE (HIGH) MAURA CLARK Sep 10, 2024 23:30
[2024-09-10 23:35] VITALS: BP 104/60; PULSE 70; RESP 21; TEMP 98; O2SAT 97
[2024-09-11 05:00] VITALS: BP 131/76; PULSE 60; RESP 18; TEMP 97.9; O2SAT 93
[2024-09-11 06:58] LABS: Potassium 3.7 mmol/L (3.5-5.1); Sodium 143 mmol/L (136-145)
[2024-09-11 06:59] LABS: Anion Gap 13 (5-15); Calcium 9.6 mg/dL (8.7-10.4); Carbon Dioxide 19 mmol/L (20-31); Chloride 111 mmol/L (98-107)
[2024-09-11 07:04] LABS: Glucose 85 mg/dL (74-106)
[2024-09-11 07:32] LABS: BUN/Creatinine Ratio 17.3 (10.0-20.0); Basophils # (auto) 0 10 ^3/uL (0-0.2); Basophils % (auto) 0.3 % (0.0-2.0); Blood Urea Nitrogen 17 mg/dL (9-23); Eosinophils # (auto) 0.1 10 ^3/uL (0-0.8); Eosinophils % (auto) 1.3 % (0.0-7.0); Hemoglobin 12.1 g/dL (12.2-16.2); Lymphocytes # (auto) 1.6 10 ^3/uL (0.4-5.4); Lymphocytes % (auto) 21.5 % (10.0-50.0); Mean Corpuscular Hemoglobin 29.5 pg (28.0-32.0); Mean Corpuscular Hgb Conc. 32.7 g/dL (32.0-36.0); Mean Corpuscular Volume 90.2 fL (80.0-100.0); Monocytes # (auto) 0.5 10 ^3/uL (0-1.3); Neutrophils # (auto) 5.2 10 ^3/uL (1.6-8.6); Neutrophils % (auto) 69.9 % (37.0-80.0); Nucleated Red Blood Cells % 0.1 %; Platelet Count (auto) 281 10^3/uL (140-450); Red Cell Distribution Width 14.9 % (11.8-14.3); White Blood Cell 7.5 10^3/uL (4.4-10.8)
[2024-09-11 08:33] VITALS: BP 99/57; PULSE 68; RESP 16; TEMP 98; O2SAT 91
[2024-09-11] MEDS: cefTRIAXone 1GM/50ML D5W 50 ML IV SCH (09:49)
[2024-09-11] MEDS: ENOXAPARIN SOD 40 MG/0.4 ML SYRINGE SC SCH (09:50)
[2024-09-11] MEDS: CLOPIDOGREL BISULFATE 75 MG TAB PO SCH (09:58)
[2024-09-11] MEDS: SPIRONOLACTONE 25 MG TAB PO SCH (09:58)
[2024-09-11] MEDS: FUROSEMIDE 40 MG TAB PO SCH (09:58)
[2024-09-11 13:00] VITALS: BP 114/55; PULSE 84; RESP 17; TEMP 97.9; O2SAT 97
--- NOTE | 2024-09-11 16:36 | DVHPN2 ---
Subjective Patient continues to report having increase elevation as well as a feeling of food impaction in the middle of her chest. Reviewed: Care Plan, H&P, Labs, Medications Changes from previous H/P or p: No Changes Objective Vitals Vital Signs Date Time Temp Pulse Resp B/P (MAP) Pulse Ox O2 Delivery O2 Flow Rate FiO2 09/11/24 13:00 97.9 84 17 114/55 (74) 97 97.9 09/11/24 08:10 Room Air* 0 21 Intake/Output Intake and Output 09/11/24 07:00 Intake Total 100 ml Output Total 20 ml Balance 80 ml Intake Oral 0 ml IV Total 100 ml Output Urine Total 20 ml General Appearance: Alert, Oriented X3, Cooperative, mild distress HEENT: Atraumatic, PERRLA Cardiovascular: Normal S1, Normal S2 Abdomen: Normal bowel sounds Genitourinary: No Apparent Abnormalities Musculoskeletal: Normal sensory function, Normal motor function Neuro: Normal gait, Normal speech Psych/Mental Status: Mental status NL, Mood NL Medications Current Medications Medications Dose Ordered Sig/Dejah Route Start Time Stop Time Status Last Admin Dose Admin Ceftriaxone Sodium 50 ml @ 100 mls/hr DAILY@09 IV 09/11/24 09:00 09/11/24 09:49 100 MLS/HR Clindamycin Phosphate 50 ml @ 50 mls/hr Q8HR IV 09/10/24 22:00 09/11/24 05:21 50 MLS/HR Spironolactone 50 mg DAILY PO 09/11/24 10:00 Clopidogrel Bisulfate 75 mg DAILY PO 09/11/24 10:00 Atorvastatin Calcium 10 mg HS PO 09/10/24 22:00 09/10/24 23:09 10 MG Furosemide 40 mg DAILY PO 09/11/24 10:00 Temazepam 15 mg QHSP PRN PO 09/10/24 20:00 Ondansetron HCl 4 mg Q4HP PRN IV 09/10/24 20:00 09/10/24 22:30 4 MG Enoxaparin Sodium 40 mg DAILY SC 09/11/24 10:00 09/11/24 09:50 40 MG Acetaminophen 650 mg Q6HP PRN PO 09/10/24 20:00 Hydralazine HCl 10 mg Q6HP PRN IV 09/10/24 23:00 Pantoprazole Sodium 40 mg DAILY IV 09/12/24 10:00 Laboratory Results Laboratory Tests 09/11/24 06:14 Chemistry Test 09/10/24 18:22 09/11/24 06:14 Albumin 4.1 g/dL (3.2-4.8) Calcium Level 9.4 mg/dL (8.7-10.4) 9.6 mg/dL (8.7-10.4) Total Protein 7.5 g/dL (5.7-8.2) Cardiac Markers Test 09/10/24 18:22 B-Type Natriuretic Peptide 111.86 pg/mL (0-100) LFT Test 09/10/24 18:22 Alanine Aminotransferase (ALT) 9 U/L (7-40) Alkaline Phosphatase 113 U/L (46-116) Aspartate Amino Transferase (AST) 16 U/L (13-40) Total Bilirubin 0.4 mg/dL (0.2-1.0) Urinalysis Test 09/10/24 20:50 Urine Color Yellow (Yellow) Urine Clarity Turbid (Clear) H Urine pH 6.5 (5.0-9.0) Urine Specific [place] 1.021 (1.001-1.035) Urine Protein 1+ (Negative) H Urine Ketones 2+ (Negative) H Urine Blood 2+ /uL (Negative) H Urine Nitrite Negative (Negative) Urine Bilirubin Negative (Negative) Urine Urobilinogen 4 mg/dL (Negative) H Urine Leukocyte Esterase 2+ /uL (Negative) Urine RBC 119 /hpf (0 - 4) Urine WBC 71 /hpf (0 - 5) Urine Squamous Epithelial Cells Mod /hpf (<5) Urine Bacteria None seen /hpf (None Seen) Urine Yeast (Budding) Occasional /hpf (None Urine Glucose Normal mg/dL (Normal) Microbiology Microbiology Date/Time Source Procedure Growth Status 09/10/24 20:25 Foot Right Gram Stain - Final Resulted 09/10/24 20:25 Foot Right Wound Culture Pending Resulted Labs and/or images reviewed: Labs reviewed by me, Image(s) reviewed by me Assessment/Plan Assessment/Plan Impression: -? Esophageal obstruction with food impaction -rule out esophageal stricture -COPD -chronic kidney disease stage IIIA -history of CVA -aspiration pneumonia Plan: -GI consultation -swallow evaluation performed. Patient with no difficulty swallowing. -PPI -continue antibiotic therapy -clear liquid diet -recommend to hold p.o. intake the patient has bouts of nausea as well as reported difficulty swallowing until GI consultation has been placed. Patient was verbalized understanding. Total time spent with patient discussing and formulating plan of care: 35 minutes. This medical document was created using an electronic medical record system with [employer] dictation system. Although this document has been carefully reviewed, there may still be some phonetic and typographical errors. These areas are purely typographical due to imperfections of the software programs, and do not reflect any compromise in the patient's medical care. Plan discussed with: Patient, Other (RN) My Orders Orders - SATISH MADDEN NP Procedure Category Date Status Time * [facility] [employer] Manager CONS 09/11/24 Transmitted 15:02 Pantoprazole PHA 09/12/24 In Process (Protonix) 10:00 Date of Service: Sep 11, 2024 Billing Provider: SATISH MADDEN NP Common Visit Codes: [id number] INP/OBS CARE(HIGH) SATISH MADDEN NP Sep 11, 2024 16:36
[2024-09-11 17:21] VITALS: BP 171/87; PULSE 73; RESP 18; TEMP 97.5; O2SAT 97
[2024-09-11 20:00] VITALS: PULSE 67; RESP 20; O2SAT 94
--- NOTE | 2024-09-11 20:48 | DVHINCON2 ---
Date of service: Sep 11, 2024 Referring Physician Ben Spears Reason for Consultation Possible food impaction or stricture History of Present Illness 83-year-old female presents for evaluation of difficulty swelling. Patient reports three days ago she felt food being stuck in throat and began to cough. Subsequently patient started having mild chest pain. She presents for evaluation of the symptoms. Denies shortness or breath. States having a nonproductive cough. No fever or chills. No other acute complaints. Past Medical History Past Medical History Chronic kidney disease, COPD, CVA, CHF, dyslipidemia cancer Past Surgical History Past Surgical History Cholecystectomy, hysterectomy, tonsillectomy, CABG and appendectomy Family History: Diabetes mellitus 19 CHILD 19 CHILD 19 CHILD Allergies: Coded Allergies: NO KNOWN ALLERGIES (Unverified , 12/22/22) Home Meds Active Scripts Spironolactone (Aldactone) 25 Mg Tab, 25 MG PO DAILY for 30 Days, #30 TAB Prov:ANA MARIA KIRK MD 05/08/23 Clindamycin Hcl (CLEOCIN) 150 Mg Cap, 1 CAP PO TID, #30 CAP Prov:DIXIE MORAN MD 04/27/23 Celecoxib (Celebrex) 200 Mg Cap, 200 MG PO DAILY for 30 Days, #30 CAP Prov:MAURA NICOLE MD 12/28/22 Reported Medications Bupropion Hcl (Bupropion Hcl) 100 Mg Tab, 300 MG PO HS, TAB 05/05/23 Furosemide (Lasix) 40 Mg Tab, 40 MG PO DAILY, TAB 05/05/23 Gabapentin (Gabapentin) 300 Mg Cap, 300 MG PO TID for 30 Days, MG 05/05/23 Atorvastatin Calcium (Lipitor) 40 Mg Tab, 40 MG PO HS, TAB 05/05/23 Duloxetine Hcl (Cymbalta) 60 Mg Cap, 60 MG PO HS, CAP 05/05/23 Clopidogrel Bisulfate (Plavix) 75 Mg Tab, 75 MG PO HS, TAB 05/05/23 Zonisamide (Zonisamide) 100 Mg Cap, 100 MG PO HS, CAP 05/05/23 Cholecalciferol (VITAMIN D3) 2,000 Unit Tab, 1000 UNIT PO DAILY, TAB 12/22/22 Ascorbic Acid (VITAMIN C TABLET) 500 Mg Tb, 2 TAB PO DAILY, #30 TAB 3 Refills 12/22/22 Cyanocobalamin (Vitamin B 12) 500 Mcg Julián, 1000 MCG PO DAILY, JULIÁN 12/22/22 Alpha Tocopheryl Acid Succinat (VITAMIN E) 200 Unit Tab, 180 UNIT PO DAILY, TAB 12/22/22 Aspirin (Aspir-Low) 81 Mg Tab, 81 MG PO DAILY for 30 Days, MG 12/22/22 Sertraline Hcl (Sertraline Hcl) 50 Mg Tab, 100 MG PO DAILY, MG 12/22/22 Metoprolol Succinate (Metoprolol Succinate Er) 25 Mg Tab, 1 TAB PO DAILY, #30 TAB 5 Refills 12/22/22 Furosemide (Furosemide) 40 Mg Tab, 40 MG PO DAILY for 30 Days 12/22/22 Gabapentin (Gabapentin) 300 Mg Cap, 600 MG PO TID for 30 Days, MG 12/22/22 Atorvastatin Calcium (Lipitor) 40 Mg Tab, 1 TAB PO QPM, #90 TAB 1 Refill 12/22/22 Duloxetine Hcl (Cymbalta) 60 Mg Cap, 1 CAP PO HS, #90 CAP 3 Refills 12/22/22 Clopidogrel Bisulfate (CLOPIDOGREL) 75 Mg Tab, 75 MG PO HS for 30 Days, MG 12/22/22 Zonisamide (Zonisamide) 100 Mg Cap, 100 MG PO HS, CAP 12/22/22 Current Medications Current Medications Medications (Trade) Dose Ordered Sig/Dejah Route PRN Reason Start Time Stop Time Status Last Admin Ceftriaxone Sodium 50 ml @ 100 mls/hr DAILY@09 IV 09/11/24 09:00 09/11/24 09:49 Clindamycin Phosphate 50 ml @ 50 mls/hr Q8HR IV 09/10/24 22:00 09/11/24 18:31 Spironolactone (Aldactone) 50 mg DAILY PO 09/11/24 10:00 Clopidogrel Bisulfate (Plavix) 75 mg DAILY PO 09/11/24 10:00 Atorvastatin Calcium (Lipitor) 10 mg HS PO 09/10/24 22:00 09/10/24 23:09 Furosemide (Lasix Tablet) 40 mg DAILY PO 09/11/24 10:00 Enoxaparin Sodium (Lovenox) 40 mg DAILY SC 09/11/24 10:00 09/11/24 09:50 Hydralazine HCl (Apresoline Injection) 10 mg Q6HP PRN IV SBP>150 09/10/24 23:00 Pantoprazole Sodium (Protonix) 40 mg DAILY IV 09/12/24 10:00 Vital Signs Vital Signs Date Time Temp Pulse Resp B/P (MAP) Pulse Ox O2 Delivery O2 Flow Rate FiO2 09/11/24 17:21 97.5 73 18 171/87 (115) 97 97.5 09/11/24 08:10 Room Air* 0 21 Physical Exam Gen: 84-year-old female mild distress Skin: Warm, dry, normal color and texture, no rash. HEENT: Normocephalic atraumatic, mucous membranes moist and pink. Neck: Cervical and supraclavicular nodes normal without enlargement, trachea is midline, thyroid gland is normal without masses. Pulmonary: Clear to auscultation and percussion bilaterally. Cardiac: Regular rate and rhythm. No murmur Abdomen: Soft, nontender, nondistended, bowel sounds present all 4 quadrants, no guarding, no rigidity, no organomegaly. Extremities: No cyanosis, clubbing, no edema Neuro: Cranial nerves II through XII grossly intact, normal affect and speech, no focal motor deficits. Labs/Diagnostic Data Labs Test 09/11/24 06:14 09/10/24 20:50 09/10/24 18:22 Range/Units White Blood Count 7.5 4.4-10.8 10^3/uL Red Blood Count 4.10 4.0-5.20 10^6/uL Hemoglobin 12.1 L 12.2-16.2 g/dL Hematocrit 37.0 36.0-46.0 % Mean Corpuscular Volume 90.2 80.0-100.0 fL Mean Corpuscular Hemoglobin 29.5 28.0-32.0 pg Mean Corpuscular Hemoglobin Concent 32.7 32.0-36.0 g/dL Red Cell Distribution Width 14.9 H 11.8-14.3 % Platelet Count 281 140-450 10^3/uL Mean Platelet Volume 7.2 6.9-10.8 fL Neutrophils (%) (Auto) 69.9 37.0-80.0 % Lymphocytes (%) (Auto) 21.5 10.0-50.0 % Monocytes (%) (Auto) 7.0 0.0-12.0 % Eosinophils (%) (Auto) 1.3 0.0-7.0 % Basophils (%) (Auto) 0.3 0.0-2.0 % Neutrophils # (Auto) 5.2 1.6-8.6 10 ^3/uL Lymphocytes # (Auto) 1.6 0.4-5.4 10 ^3/uL Monocytes # (Auto) 0.5 0-1.3 10 ^3/uL Eosinophils # (Auto) 0.1 0-0.8 10 ^3/uL Basophils # (Auto) 0 0-0.2 10 ^3/uL Nucleated Red Blood Cells 0.1 % Sodium Level 143 136-145 mmol/L Potassium Level 3.7 3.5-5.1 mmol/L Chloride Level 111 H 98-107 mmol/L Carbon Dioxide Level 19 L 20-31 mmol/L Anion Gap 13 5-15 Blood Urea Nitrogen 17 9-23 mg/dL Creatinine 0.98 0.550-1.02 mg/dL Glomerular Filtration Rate Calc 57 >90 mL/min BUN/Creatinine Ratio 17.3 10.0-20.0 Serum Glucose 85 74-106 mg/dL Calcium Level 9.6 8.7-10.4 mg/dL Urine Color Yellow Yellow Urine Clarity Turbid H Clear Urine pH 6.5 5.0-9.0 Urine Specific [place] 1.021 1.001-1.035 Urine Protein 1+ H Negative Urine Ketones 2+ H Negative Urine Blood 2+ H Negative /uL Urine Nitrite Negative Negative Urine Bilirubin Negative Negative Urine Urobilinogen 4 H Negative mg/dL Urine Leukocyte Esterase 2+ Negative /uL Urine RBC 119 0 - 4 /hpf Urine WBC 71 0 - 5 /hpf Urine Squamous Epithelial Cells Mod <5 /hpf Urine Bacteria None seen None Seen /hpf Urine Yeast (Budding) Occasional None Seen /hpf Urine Glucose Normal Normal mg/dL Lactic Acid Level 0.9 0.4-2.0 mmol/L Total Bilirubin 0.4 0.2-1.0 mg/dL Aspartate Amino Transferase (AST) 16 13-40 U/L Alanine Aminotransferase (ALT) 9 7-40 U/L Alkaline Phosphatase 113 46-116 U/L B-Type Natriuretic Peptide 111.86 0-100 pg/mL Total Protein 7.5 5.7-8.2 g/dL Albumin 4.1 3.2-4.8 g/dL Microbiology Date/Time Source Procedure Growth Status 09/10/24 20:25 Foot Right Gram Stain - Final Resulted 09/10/24 20:25 Foot Right Wound Culture Pending Resulted CT CHEST IMPRESSION: 1. Mild subpleural ground-glass opacity in the left lower lung could represent small focus of aspiration pneumonitis. Clinical correlation and continued follow-up is recommended. Problems(with codes): (1) Esophageal abnormality (2) Aspiration pneumonia (3) Ground glass opacity present on imaging of lung (4) Pneumonia Plan/Recommendation Assessment plan Patient is still complaining of a sensation of food impaction in her esophagus CT of the chest was unremarkable for any retained foreign body Continue IV antibiotics and supportive care I will arrange possible endoscopy with biopsy and possible dilation once the patient is medically stabilized Protonix 40 mg IV q.12 hours Once again thank you for allowing me to participate in the care of this patient Plan discussed with: Other (Ben Spears) JING GREENE MD Sep 11, 2024 20:48
[2024-09-11 21:00] VITALS: BP_SYST 127; BP_SYST 152; BP_DIAS 59; BP_DIAS 83; PULSE 66; PULSE 71; RESP 18; RESP 20; TEMP 98.1; TEMP 98.2; O2SAT 94; O2SAT 98
[2024-09-12] VITALS (9 sets, daily range): BP systolic 117–177; BP diastolic 49–85; PULSE 60–88; RESP 13–20; TEMP 97.9–98.4; O2SAT 95–99
[2024-09-12] MEDS: hydrALAZINE HCL 20 MG/ML VL IV PRN (00:34)
[2024-09-12] MEDS ORDERED: PROPOFOL 10 MG/ML 20 ML IV ONE (09:59)
[2024-09-12] MEDS ORDERED: fentaNYL CITRATE 100 MCG/2 ML VL ONE (09:59)
[2024-09-12] MEDS ORDERED: PANTOPRAZOLE 40 MG/10 ML VIAL INJ IV SCH (10:00)
--- NOTE | 2024-09-12 10:29 | DVHOP2 ---
Operative Report DATE OF OPERATION: 09/12/24 PROCEDURE: Upper Endoscopy biopsy and removal of foreign body PREOPERATIVE INDICATION: The patient is a 84 -year-old female undergoing endoscopy for suspected food impaction and esophageal discomfort and burning POSTOPERATIVE DIAGNOSES: 1. Patient had a small amount of residual debris in the distal esophagus and there was a moderate size 2-3 cm inflamed polypoid tissue that dislodged when the endoscope and the debris was pushed into the stomach 2. Patient had underlying a hiatal hernia about 2-3 cm with a esophagitis and oozing from the distal esophagus 3. Mild antral gastritis and mild duodenitis of the duodenal bulb otherwise normal examination up to the 2nd and 3rd part of the duodenum PROCEDURE PERFORMED BY: Jing Hearn GI NURSE: Bridgett SCOPE: Olympus videoendoscope. ASA CLASS: 3. PREOPERATIVE MEDICATIONS: Dr. Katerine Dooley PROCEDURE IN DETAIL: After obtaining an informed consent, the patient was placed on left lateral decubitus position. The patient was then sedated with the above medications. A bite block was placed between her teeth. The endoscope was then passed through the oropharynx, into the esophagus. In the distal esophagus there were some residual debris and an inflamed polypoid tissue fold. As the endoscope was advanced through the distal esophagus into the stomach the debris and the inflamed fold was dislodged and moved into the stomach. The endoscope then was advanced through the pylorus up to the second and third part of the duodenum. The endoscope was then withdrawn. Second and 3rd part of the duodenum was normal. Duodenal bulb showed mild duodenitis. Duodenal biopsies were obtained. The pre-pyloric area and antrum showed moderate gastritis with some erosions. Gastric biopsies were obtained. On retroflexion and straight on view the dislodged inflammatory tissue and fold was seen floating in the cardia. This was first biopsies and then I could remove it per orally by suctioning it into the endoscope. The specimen was sent for analysis. The esophagus showed a 3 cm sliding-type hiatal hernia with acute esophagitis. There was some oozing and bleeding at the site of the dislodgement of the inflamed fold. A couple of distal esophageal biopsies were obtained. The proximal and mid esophagus and oropharynx were otherwise unremarkable. The patient tolerated the procedure well without difficulty. COMPLICATIONS : None SPECIMENS: Duodenal biopsies Gastric biopsies Inflammatory tissue that was dislodged from the distal esophagus and Esophageal biopsies DISPOSITION: Transfer back to the floor Stable PLAN: 1. Await for biopsy result 2. Will place pt on Protonix 40 mg bid IV 3. Carafate 1 g p.o. 4 times a day 4. Get a Gastrografin barium swallow upper GI to rule out any extravasation of the contrast through the distal esophagus 5. If the Gastrografin upper GI x-ray is negative then proceed with a clear liquid diet and advance to full liquid as tolerated JING HEARN MD Sep 12, 2024 10:29
[2024-09-12] MEDS ORDERED: ALEN70TA74 PO (15:15)
--- NOTE | 2024-09-12 15:26 | DVHPN2 ---
Subjective Patient continues to report having increase elevation as well as a feeling of food impaction in the middle of her chest. Reviewed: Care Plan, H&P, Labs, Medications Changes from previous H/P or p: No Changes General: Per HPI Objective Vitals Vital Signs Date Time Temp Pulse Resp B/P (MAP) Pulse Ox O2 Delivery O2 Flow Rate FiO2 09/12/24 12:46 98.4 75 16 158/85 (109) 97 98.4 09/12/24 10:21 Mask 6.0 09/12/24 10:21 96 Intake/Output Intake and Output 09/12/24 07:00 Intake Total 1670 ml Output Total 1100 ml Balance 570 ml Intake Oral 1520 ml IV Total 150 ml Output Urine Total 1100 ml # Voids 2 General Appearance: Alert, Oriented X3, Cooperative, mild distress HEENT: Atraumatic, PERRLA Cardiovascular: Normal S1, Normal S2 Abdomen: Normal bowel sounds Genitourinary: No Apparent Abnormalities Musculoskeletal: Normal sensory function, Normal motor function Neuro: Normal gait, Normal speech Psych/Mental Status: Mental status NL, Mood NL Medications Current Medications Medications Dose Ordered Sig/Dejah Route Start Time Stop Time Status Last Admin Dose Admin Ceftriaxone Sodium 50 ml @ 100 mls/hr DAILY@09 IV 09/11/24 09:00 09/11/24 09:49 100 MLS/HR Clindamycin Phosphate 50 ml @ 50 mls/hr Q8HR IV 09/10/24 22:00 09/12/24 05:38 50 MLS/HR Spironolactone 50 mg DAILY PO 09/11/24 10:00 Clopidogrel Bisulfate 75 mg DAILY PO 09/11/24 10:00 Atorvastatin Calcium 10 mg HS PO 09/10/24 22:00 09/10/24 23:09 10 MG Furosemide 40 mg DAILY PO 09/11/24 10:00 Temazepam 15 mg QHSP PRN PO 09/10/24 20:00 Ondansetron HCl 4 mg Q4HP PRN IV 09/10/24 20:00 09/10/24 22:30 4 MG Enoxaparin Sodium 40 mg DAILY SC 09/11/24 10:00 09/11/24 09:50 40 MG Acetaminophen 650 mg Q6HP PRN PO 09/10/24 20:00 Hydralazine HCl 10 mg Q6HP PRN IV 09/10/24 23:00 09/12/24 00:34 10 MG Pantoprazole Sodium 40 mg BID IV 09/12/24 22:00 Laboratory Results Laboratory Tests 09/11/24 06:14 Urinalysis Test 09/10/24 20:50 Urine Color Yellow (Yellow) Urine Clarity Turbid (Clear) H Urine pH 6.5 (5.0-9.0) Urine Specific [place] 1.021 (1.001-1.035) Urine Protein 1+ (Negative) H Urine Ketones 2+ (Negative) H Urine Blood 2+ /uL (Negative) H Urine Nitrite Negative (Negative) Urine Bilirubin Negative (Negative) Urine Urobilinogen 4 mg/dL (Negative) H Urine Leukocyte Esterase 2+ /uL (Negative) Urine RBC 119 /hpf (0 - 4) Urine WBC 71 /hpf (0 - 5) Urine Squamous Epithelial Cells Mod /hpf (<5) Urine Bacteria None seen /hpf (None Seen) Urine Yeast (Budding) Occasional /hpf (None Urine Glucose Normal mg/dL (Normal) Microbiology Microbiology Date/Time Source Procedure Growth Status 09/10/24 20:25 Foot Right Gram Stain - Final Resulted 09/10/24 20:25 Foot Right Wound Culture - Preliminary Resulted Labs and/or images reviewed: Labs reviewed by me, Image(s) reviewed by me Assessment/Plan Assessment/Plan Impression: -esophageal polyp with residual food debris. -hiatal hernia -rule out esophageal tear -COPD -chronic kidney disease stage IIIA -history of CVA -aspiration pneumonia -MRSA to right heel wound -esophageal Funmil[place]o Plan: Events: Patient underwent EGD. Findings reviewed. -GI consultation : Recommendations reviewed. Plans for barium swallow evaluation tomorrow -continue NPO status -PPI -continue antibiotic therapy -continue IV antibiotic therapy with clindamycin and Rocephin. Start nystatin swish and swallow q.i.d. -repeat labs in a.m. Total time spent with patient discussing and formulating plan of care: 35 minutes. This medical document was created using an electronic medical record system with [employer] system. Although this document has been carefully reviewed, there may still be some phonetic and typographical errors. These areas are purely typographical due to imperfections of the software programs, and do not reflect any compromise in the patient's medical care. Plan discussed with: Patient, Other (RN) My Orders Orders - SATISH MADDEN NP Procedure Category Date Status Time * Dietary Consult CONS 09/11/24 Transmitted 21:56 Cleanse Wound With JAKY 09/11/24 In Process Wound Clean 17:40 Dietary NOTICE 09/12/24 Transmitted Recommendations 10:20 Complete Blood Count LAB 09/13/24 Verified 04:00 Date of Service: Sep 12, 2024 Billing Provider: SATISH MADDEN NP Common Visit Codes: [id number] INP/OBS CARE(HIGH) SATISH MADDEN NP Sep 12, 2024 15:26
[2024-09-12] MEDS: PANTOPRAZOLE 40 MG/10 ML VIAL INJ IV SCH (21:30)
[2024-09-12] MEDS: KETOROLAC TROMETH 30 MG/ML 1ML VIAL IV ONE (23:26)
[2024-09-13] VITALS (7 sets, daily range): BP systolic 142–171; BP diastolic 51–82; PULSE 73–92; RESP 14–20; TEMP 97.4–98.6; O2SAT 95–98
[2024-09-13 06:40] LABS: Basophils # (auto) 0 10 ^3/uL (0-0.2); Basophils % (auto) 0.4 % (0.0-2.0); Eosinophils # (auto) 0 10 ^3/uL (0-0.8); Eosinophils % (auto) 0.5 % (0.0-7.0); Hematocrit 43.5 % (36.0-46.0); Hemoglobin 13.9 g/dL (12.2-16.2); Lymphocytes # (auto) 1.4 10 ^3/uL (0.4-5.4); Lymphocytes % (auto) 16.7 % (10.0-50.0); Monocytes # (auto) 0.4 10 ^3/uL (0-1.3); Neutrophils # (auto) 6.5 10 ^3/uL (1.6-8.6); Neutrophils % (auto) 77.4 % (37.0-80.0); Nucleated Red Blood Cells % 0.2 %; Platelet Count (auto) 267 10^3/uL (140-450); Red Blood Cells 4.63 10^6/uL (4.0-5.20); Red Cell Distribution Width 16.1 % (11.8-14.3); White Blood Cell 8.4 10^3/uL (4.4-10.8)
--- NOTE | 2024-09-13 10:17 | DVHPN2 ---
Subjective Patient continues to report having increase elevation as well as a feeling of food impaction in the middle of her chest. Reviewed: Care Plan, H&P, Labs, Medications Changes from previous H/P or p: No Changes General: Per HPI Objective Vitals Vital Signs Date Time Temp Pulse Resp B/P (MAP) Pulse Ox O2 Delivery O2 Flow Rate FiO2 09/13/24 09:37 98.5 74 14 170/65 (100) 97 98.5 09/13/24 08:00 Room Air* 0 21 Intake/Output Intake and Output 09/13/24 07:00 Intake Total 600 ml Balance 600 ml Intake Oral 400 ml IV Total 200 ml # Voids 6 General Appearance: Alert, Oriented X3, Cooperative, mild distress HEENT: Atraumatic, PERRLA Cardiovascular: Normal S1, Normal S2 Abdomen: Normal bowel sounds Genitourinary: No Apparent Abnormalities Musculoskeletal: Normal sensory function, Normal motor function Neuro: Normal gait, Normal speech Psych/Mental Status: Mental status NL, Mood NL Medications Current Medications Medications Dose Ordered Sig/Dejah Route Start Time Stop Time Status Last Admin Dose Admin Ceftriaxone Sodium 50 ml @ 100 mls/hr DAILY@09 IV 09/11/24 09:00 09/11/24 09:49 100 MLS/HR Clindamycin Phosphate 50 ml @ 50 mls/hr Q8HR IV 09/10/24 22:00 09/12/24 21:47 50 MLS/HR Spironolactone 50 mg DAILY PO 09/11/24 10:00 Clopidogrel Bisulfate 75 mg DAILY PO 09/11/24 10:00 Atorvastatin Calcium 10 mg HS PO 09/10/24 22:00 09/10/24 23:09 10 MG Furosemide 40 mg DAILY PO 09/11/24 10:00 Temazepam 15 mg QHSP PRN PO 09/10/24 20:00 Ondansetron HCl 4 mg Q4HP PRN IV 09/10/24 20:00 09/10/24 22:30 4 MG Enoxaparin Sodium 40 mg DAILY SC 09/11/24 10:00 09/11/24 09:50 40 MG Acetaminophen 650 mg Q6HP PRN PO 09/10/24 20:00 Hydralazine HCl 10 mg Q6HP PRN IV 09/10/24 23:00 09/12/24 21:30 10 MG Pantoprazole Sodium 40 mg BID IV 09/12/24 22:00 09/12/24 21:30 40 MG Morphine Sulfate 2 mg Q3HPRN PRN IV 09/13/24 09:45 UNV Acetaminophen/ Hydrocodone Bitart 1 tab Q6HP PRN PO 09/13/24 09:45 UNV Laboratory Results Laboratory Tests 09/11/24 06:14 09/13/24 05:35 Urinalysis Test 09/10/24 20:50 Urine Color Yellow (Yellow) Urine Clarity Turbid (Clear) H Urine pH 6.5 (5.0-9.0) Urine Specific [place] 1.021 (1.001-1.035) Urine Protein 1+ (Negative) H Urine Ketones 2+ (Negative) H Urine Blood 2+ /uL (Negative) H Urine Nitrite Negative (Negative) Urine Bilirubin Negative (Negative) Urine Urobilinogen 4 mg/dL (Negative) H Urine Leukocyte Esterase 2+ /uL (Negative) Urine RBC 119 /hpf (0 - 4) Urine WBC 71 /hpf (0 - 5) Urine Squamous Epithelial Cells Mod /hpf (<5) Urine Bacteria None seen /hpf (None Seen) Urine Yeast (Budding) Occasional /hpf (None Urine Glucose Normal mg/dL (Normal) Microbiology Microbiology Date/Time Source Procedure Growth Status 09/10/24 20:25 Foot Right Gram Stain - Final Resulted 09/10/24 20:25 Wound Culture - Preliminary Staphylococcus aureus Resulted Labs and/or images reviewed: Labs reviewed by me, Image(s) reviewed by me Assessment/Plan Assessment/Plan Impression: -esophageal polyp with residual food debris. -hiatal hernia -rule out esophageal tear -COPD -chronic kidney disease stage IIIA -history of CVA -aspiration pneumonia -MRSA to right heel wound -right foot cellulitits -Chronic Pain syndrome with morphine pump Plan: Events: Pending Barium Swallow. Denies any chest discomfort. Reports pain pump is empty with the patient supposed to have pump refilled today. -Start pain regimen. -GI consultation : Recommendations reviewed. Plans for barium swallow evaluation tomorrow -continue NPO status -PPI -continue antibiotic therapy -continue IV antibiotic therapy with clindamycin and Rocephin. Start nystatin swish and swallow q.i.d. -repeat labs in a.m. Total time spent with patient discussing and formulating plan of care: 35 minutes. This medical document was created using an electronic medical record system with [employer] dictation system. Although this document has been carefully reviewed, there may still be some phonetic and typographical errors. These areas are purely typographical due to imperfections of the software programs, and do not reflect any compromise in the patient's medical care. Plan discussed with: Patient, Other (RN) My Orders Orders - SATISH MADDEN NP Procedure Category Date Status Time Dietary NOTICE 09/12/24 Transmitted Recommendations 10:20 Morphine Sulfate PHA 09/13/24 Logged Injection 09:45 Hydrocodone-Acet PHA 09/13/24 Logged 10/325mg Tab ([place] 09:45 R Foot 3 View Xray XY 09/13/24 Logged 09:41 Date of Service: Sep 13, 2024 Billing Provider: SATISH MADDEN NP Common Visit Codes: [id number] INP/OBS CARE(HIGH) SATISH MADDEN NP Sep 13, 2024 10:17
[2024-09-13] MEDS ORDERED: EZ-GAS II GRANULES (RADIOLOGY USE) PO ONE (10:41)
[2024-09-13] MEDS ORDERED: GASTROGRAFIN 120 ML SOL ONE (10:41)
--- NOTE | 2024-09-13 11:34 | DVH ---
CLINICAL INDICATION: RULE OUT FOREIGN BODY, trauma TECHNIQUE: 3 radiographic views of the right foot were obtained. Comparison: None FINDINGS/IMPRESSION: Severe degenerative disc disease of the 1st metatarsophalangeal joint. There is diffuse osteopenia. N o acute fracture. There is no radiopaque foreign body.
--- NOTE | 2024-09-13 11:45 | DVH ---
XY UGI WITH GASTROGRAFIN, HISTORY: DISLODGE INFLAMMATORY TISSUE DISTAL ESPOH COMPARISON: None PROCEDURE: A manager automotive radiograph was obtained prior to the procedure. Barium and effervescent granules w ere administered orally, and radiographs were obtained under intermittent fluoroscopic observation. T otal fluoroscopic time was 0.8 minutes. DAP 586 FINDINGS: A short segment narrowing of the distal esophagus is noted. A small hiatal hernia is seen. There was slow passage of contrast through a normal appearing gastroesophageal junction. The stomach distended normally with a normal mucosal pattern and no evidence for filling defect, mass or wall irr egularity. The duodenal bulb demonstrated no stricture or ulceration. Contrast flowed into more distal loops of small bowel, with no abnormality identified. IMPRESSION: Short segment narrowing of the distal esophagus could be a stricture. No filling defect is seen to aquino ggest for foreign body. A small hiatal hernia is seen.
[2024-09-13] MEDS: MORPHINE SULFATE INJ 2 MG/ml SYRG IV PRN (13:17)
[2024-09-13] MEDS: GABAPENTIN 300 MG CAP PO SCH (16:15)
--- NOTE | 2024-09-13 16:55 | DVHPN2 ---
Progress Note - Dictate Date Seen: Sep 13, 2024 Medical Necessity Reason Pt with a Central, PICC or Fol: No Subjective Patient seen at bedside She is feeling better Patient is tolerating clear liquid diet vital signs Vital Sign Date Time Temp Pulse Resp B/P (MAP) Pulse Ox O2 Delivery O2 Flow Rate FiO2 09/13/24 16:40 97.4 89 16 152/51 (84) 96 97.4 09/13/24 08:00 Room Air* 0 21 Total Intake and Output 09/12/24 09/12/24 09/13/24 15:00 23:00 07:00 Intake Total 100 ml 100 ml 400 ml Balance 100 ml 100 ml 400 ml medications Current Medications Medications Dose Ordered Sig/Dejah Route Start Time Stop Time Status Last Admin Dose Admin Ceftriaxone Sodium 50 ml @ 100 mls/hr DAILY@09 IV 09/11/24 09:00 09/13/24 11:55 100 MLS/HR Clindamycin Phosphate 50 ml @ 50 mls/hr Q8HR IV 09/10/24 22:00 09/13/24 16:14 50 MLS/HR Spironolactone 50 mg DAILY PO 09/11/24 10:00 09/13/24 11:56 50 MG Clopidogrel Bisulfate 75 mg DAILY PO 09/11/24 10:00 09/13/24 11:56 75 MG Atorvastatin Calcium 10 mg HS PO 09/10/24 22:00 09/10/24 23:09 10 MG Furosemide 40 mg DAILY PO 09/11/24 10:00 09/13/24 11:56 40 MG Temazepam 15 mg QHSP PRN PO 09/10/24 20:00 Ondansetron HCl 4 mg Q4HP PRN IV 09/10/24 20:00 09/10/24 22:30 4 MG Enoxaparin Sodium 40 mg DAILY SC 09/11/24 10:00 09/13/24 11:57 40 MG Acetaminophen 650 mg Q6HP PRN PO 09/10/24 20:00 Hydralazine HCl 10 mg Q6HP PRN IV 09/10/24 23:00 09/12/24 21:30 10 MG Pantoprazole Sodium 40 mg BID IV 09/12/24 22:00 09/13/24 11:56 40 MG Morphine Sulfate 2 mg Q3HPRN PRN IV 09/13/24 09:45 09/13/24 13:17 2 MG Acetaminophen/ Hydrocodone Bitart 1 tab Q6HP PRN PO 09/13/24 09:45 Sucralfate 1 gm ACHS PO 09/13/24 17:00 Gabapentin 600 mg TID PO 09/13/24 14:00 09/13/24 16:15 600 MG Sertraline HCl 75 mg HS PO 09/13/24 22:00 objective General Appearance: Alert, Oriented X3, Cooperative, no distress HEENT: Atraumatic, PERRLA Cardiovascular: Normal S1, Normal S2 Abdomen: Normal bowel sounds Genitourinary: No Apparent Abnormalities Musculoskeletal: Normal sensory function, Normal motor function Neuro: Normal gait, Normal speech Psych/Mental Status: Mental status NL, Mood NL laboratory and microbiology Laboratory Tests 09/13/24 05:35 09/11/24 06:14 Test 09/11/24 06:14 Range/Units Serum Glucose 85 74-106 mg/dL Problems(with codes): (1) Pneumonia (2) Ground glass opacity present on imaging of lung (3) Aspiration pneumonia (4) Esophageal abnormality (5) UTI (urinary tract infection) (6) Choked on food Prognosis Plan Upper GI x-ray showed a mid esophageal narrowing and small hiatal hernia with no extravasation of contrast Patient has been tolerating clear liquid diet we will advance to full liquid diet Continue Protonix 40 mg IV q.12 hours Add Carafate suspension 1 g p.o. 4 times a day DC aspirin NSAIDs smoking alcohol Await final pathology results Dietary Evaluation Review Comments: 1) Consider GIGI 1 pkt BID for wound healing 2) Continue current plan of care Expected Outcomes/Goals: F/U in 3-5 days Plan discussed with: Patient, Other (Nurse) JING GREENE MD Sep 13, 2024 16:54
[2024-09-13] MEDS: SUCRALFATE 1 GM/10 ML ORAL SUSP PO SCH (17:00)
[2024-09-13] MEDS: SERTRALINE HCL 50 MG TAB PO SCH (21:37)
[2024-09-13] MEDS: TEMAZEPAM 15 MG CAP PO PRN (21:55)
[2024-09-14 05:00] VITALS: BP 102/47; PULSE 79; RESP 16; TEMP 98.3; O2SAT 90
[2024-09-14 08:00] VITALS: PULSE 80; RESP 16; O2SAT 97
[2024-09-14 08:26] VITALS: BP 130/61; PULSE 80; RESP 14; TEMP 98.6; O2SAT 93
--- NOTE | 2024-09-14 12:28 | DVHPN2 ---
Reviewed: Care Plan, H&P, Labs, Medications Changes from previous H/P or p: No Changes General: Per HPI Objective Vitals Vital Signs Date Time Temp Pulse Resp B/P (MAP) Pulse Ox O2 Delivery O2 Flow Rate FiO2 09/14/24 10:00 130/60 09/14/24 08:26 98.6 80 14 93 98.6 09/14/24 08:00 Room Air* 0 21 Intake/Output Intake and Output 09/14/24 07:00 Intake Total 1260 ml Output Total 1 ml Balance 1259 ml Intake Oral 1160 ml IV Total 100 ml Stool Total 1 ml # Voids 6 # Bowel Movements 3 General Appearance: Alert, Oriented X3, Cooperative, mild distress HEENT: Atraumatic, PERRLA Cardiovascular: Normal S1, Normal S2 Abdomen: Normal bowel sounds Genitourinary: No Apparent Abnormalities Musculoskeletal: Normal sensory function, Normal motor function Neuro: Normal gait, Normal speech Psych/Mental Status: Mental status NL, Mood NL Medications Current Medications Medications Dose Ordered Sig/Dejah Route Start Time Stop Time Status Last Admin Dose Admin Ceftriaxone Sodium 50 ml @ 100 mls/hr DAILY@09 IV 09/11/24 09:00 09/14/24 10:01 100 MLS/HR Clindamycin Phosphate 50 ml @ 50 mls/hr Q8HR IV 09/10/24 22:00 09/14/24 05:55 50 MLS/HR Spironolactone 50 mg DAILY PO 09/11/24 10:00 09/14/24 09:59 50 MG Clopidogrel Bisulfate 75 mg DAILY PO 09/11/24 10:00 09/14/24 10:00 75 MG Atorvastatin Calcium 10 mg HS PO 09/10/24 22:00 09/13/24 21:38 10 MG Furosemide 40 mg DAILY PO 09/11/24 10:00 09/14/24 10:00 40 MG Temazepam 15 mg QHSP PRN PO 09/10/24 20:00 09/13/24 21:55 15 MG Ondansetron HCl 4 mg Q4HP PRN IV 09/10/24 20:00 09/10/24 22:30 4 MG Enoxaparin Sodium 40 mg DAILY SC 09/11/24 10:00 09/14/24 10:01 40 MG Acetaminophen 650 mg Q6HP PRN PO 09/10/24 20:00 Hydralazine HCl 10 mg Q6HP PRN IV 09/10/24 23:00 09/12/24 21:30 10 MG Pantoprazole Sodium 40 mg BID IV 09/12/24 22:00 09/14/24 10:01 40 MG Morphine Sulfate 2 mg Q3HPRN PRN IV 09/13/24 09:45 09/13/24 21:50 2 MG Acetaminophen/ Hydrocodone Bitart 1 tab Q6HP PRN PO 09/13/24 09:45 Sucralfate 1 gm ACHS PO 09/13/24 17:00 09/14/24 05:55 1 GM Gabapentin 600 mg TID PO 09/13/24 14:00 09/14/24 05:55 600 MG Sertraline HCl 75 mg HS PO 09/13/24 22:00 09/13/24 21:37 75 MG Laboratory Results Laboratory Tests 09/11/24 06:14 09/13/24 05:35 Urinalysis Test 09/10/24 20:50 Urine Color Yellow (Yellow) Urine Clarity Turbid (Clear) H Urine pH 6.5 (5.0-9.0) Urine Specific [place] 1.021 (1.001-1.035) Urine Protein 1+ (Negative) H Urine Ketones 2+ (Negative) H Urine Blood 2+ /uL (Negative) H Urine Nitrite Negative (Negative) Urine Bilirubin Negative (Negative) Urine Urobilinogen 4 mg/dL (Negative) H Urine Leukocyte Esterase 2+ /uL (Negative) Urine RBC 119 /hpf (0 - 4) Urine WBC 71 /hpf (0 - 5) Urine Squamous Epithelial Cells Mod /hpf (<5) Urine Bacteria None seen /hpf (None Seen) Urine Yeast (Budding) Occasional /hpf (None Urine Glucose Normal mg/dL (Normal) Microbiology Microbiology Date/Time Source Procedure Growth Status 09/10/24 20:25 Foot Right Gram Stain - Final Resulted 09/10/24 20:25 Wound Culture - Preliminary Staphylococcus aureus Resulted Labs and/or images reviewed: Labs reviewed by me, Image(s) reviewed by me Assessment/Plan Assessment/Plan Covering for nurse practitioner Ben Spears Sepsis secondary to right foot cellulitis esophageal polyp with residual food debris. -hiatal hernia -rule out esophageal tear -COPD -chronic kidney disease stage IIIA -history of CVA -aspiration pneumonia -MRSA to right heel wound continue clindamycin -right foot cellulitits continue clindamycin and Rocephin -Chronic Pain syndrome with morphine pump Plan discussed with: Patient Date of Service: Sep 14, 2024 Billing Provider: AMIE BONNER MD Common Visit Codes: [id number] INP/OBS CARE(HIGH) AMIE BONNER MD Sep 14, 2024 12:28
[2024-09-14 13:08] VITALS: BP 109/53; PULSE 81; RESP 16; TEMP 97.9; O2SAT 96
--- NOTE | 2024-09-14 17:08 | MEDREC ---
[facility] ASP Intervention Section I [facility] ASP Intervention: Review courses of therapy (THE FINAL WOUND CULTURE ON 09/14 RESULTED WITH MSSA AND PSEUDOMONAS. PLEASE SWITCHING ANTIBIOTICS TO HAVE ENOUGH COVERAGE FOR THESE PATHOGENS) MARYANNE WHITNEY Sep 14, 2024 17:08
[2024-09-14 17:24] VITALS: BP 102/52; PULSE 89; RESP 16; TEMP 98.5; O2SAT 96
--- NOTE | 2024-09-14 20:27 | DVHPN2 ---
Progress Note - Dictate Date Seen: Sep 14, 2024 Medical Necessity Reason Pt with a Central, PICC or Fol: No Subjective Patient seen at bedside She is feeling better Patient is tolerating liquid diet Patient had some loose stools this morning likely related to Gastrografin contrast vital signs Vital Sign Date Time Temp Pulse Resp B/P (MAP) Pulse Ox O2 Delivery O2 Flow Rate FiO2 09/14/24 17:24 98.5 89 16 102/52 (69) 96 98.5 09/14/24 08:00 Room Air* 0 21 Total Intake and Output 09/13/24 09/13/24 09/14/24 15:00 23:00 07:00 Intake Total 50 ml 360 ml 850 ml Output Total 1 ml Balance 50 ml 360 ml 849 ml medications Current Medications Medications Dose Ordered Sig/Dejah Route Start Time Stop Time Status Last Admin Dose Admin Ceftriaxone Sodium 50 ml @ 100 mls/hr DAILY@09 IV 09/11/24 09:00 09/14/24 10:01 100 MLS/HR Clindamycin Phosphate 50 ml @ 50 mls/hr Q8HR IV 09/10/24 22:00 09/14/24 14:22 50 MLS/HR Spironolactone 50 mg DAILY PO 09/11/24 10:00 09/14/24 09:59 50 MG Clopidogrel Bisulfate 75 mg DAILY PO 09/11/24 10:00 09/14/24 10:00 75 MG Atorvastatin Calcium 10 mg HS PO 09/10/24 22:00 09/13/24 21:38 10 MG Furosemide 40 mg DAILY PO 09/11/24 10:00 09/14/24 10:00 40 MG Temazepam 15 mg QHSP PRN PO 09/10/24 20:00 09/13/24 21:55 15 MG Ondansetron HCl 4 mg Q4HP PRN IV 09/10/24 20:00 09/10/24 22:30 4 MG Enoxaparin Sodium 40 mg DAILY SC 09/11/24 10:00 09/14/24 10:01 40 MG Acetaminophen 650 mg Q6HP PRN PO 09/10/24 20:00 Hydralazine HCl 10 mg Q6HP PRN IV 09/10/24 23:00 09/12/24 21:30 10 MG Pantoprazole Sodium 40 mg BID IV 09/12/24 22:00 09/14/24 10:01 40 MG Morphine Sulfate 2 mg Q3HPRN PRN IV 09/13/24 09:45 09/13/24 21:50 2 MG Acetaminophen/ Hydrocodone Bitart 1 tab Q6HP PRN PO 09/13/24 09:45 Sucralfate 1 gm ACHS PO 09/13/24 17:00 09/14/24 17:58 1 GM Gabapentin 600 mg TID PO 09/13/24 14:00 09/14/24 14:21 600 MG Sertraline HCl 75 mg HS PO 09/13/24 22:00 09/13/24 21:37 75 MG Ciprofloxacin 500 mg Q12HR PO 09/14/24 22:00 objective General Appearance: Alert, Oriented X3, Cooperative, no distress HEENT: Atraumatic, PERRLA Cardiovascular: Normal S1, Normal S2 Abdomen: Normal bowel sounds Genitourinary: No Apparent Abnormalities Musculoskeletal: Normal sensory function, Normal motor function Neuro: Normal gait, Normal speech Psych/Mental Status: Mental status NL, Mood NL laboratory and microbiology Laboratory Tests 09/13/24 05:35 09/11/24 06:14 Test 09/11/24 06:14 Range/Units Serum Glucose 85 74-106 mg/dL Problems(with codes): (1) Choked on food (2) UTI (urinary tract infection) (3) Pneumonia (4) Ground glass opacity present on imaging of lung (5) Aspiration pneumonia (6) Esophageal abnormality Prognosis Plan Upper GI x-ray showed a mid esophageal narrowing and small hiatal hernia with no extravasation of contrast Patient has been tolerating full liquid diet we will advance to soft mechanical Continue Protonix 40 mg IV q.12 hours Carafate suspension 1 g p.o. 4 times a day DC aspirin NSAIDs smoking alcohol Await final pathology results Dietary Evaluation Review Comments: 1) Consider GIGI 1 pkt BID for wound healing 2) Continue current plan of care Expected Outcomes/Goals: F/U in 3-5 days Plan discussed with: Patient, Other (Nurse) JING GREENE MD Sep 14, 2024 20:27
[2024-09-14] MEDS: CIPROFLOXACIN HCL 500 MG TAB PO SCH (21:05)
[2024-09-14 22:00] VITALS: BP 138/67; PULSE 93; RESP 17; TEMP 98; O2SAT 93
[2024-09-15 01:00] VITALS: BP 104/52; PULSE 71; RESP 17; TEMP 98.3; O2SAT 94
[2024-09-15 05:00] VITALS: BP 134/64; PULSE 80; RESP 17; TEMP 97.7; O2SAT 94
[2024-09-15 08:53] VITALS: BP 121/55; PULSE 73; RESP 18; TEMP 98.2; O2SAT 96
--- NOTE | 2024-09-15 12:03 | DVHPN2 ---
Reviewed: Care Plan, H&P, Labs, Medications Changes from previous H/P or p: No Changes General: Per HPI Objective Vitals Vital Signs Date Time Temp Pulse Resp B/P (MAP) Pulse Ox O2 Delivery O2 Flow Rate FiO2 09/15/24 08:53 98.2 73 18 121/55 (77) 96 98.2 09/14/24 20:00 Room Air* 0 21 Intake/Output Intake and Output 09/15/24 07:00 Intake Total 1360 ml Balance 1360 ml Intake Oral 1160 ml IV Total 200 ml # Voids 3 # Bowel Movements 3 General Appearance: Alert, Oriented X3, Cooperative, mild distress HEENT: Atraumatic, PERRLA Cardiovascular: Normal S1, Normal S2 Abdomen: Normal bowel sounds Genitourinary: No Apparent Abnormalities Musculoskeletal: Normal sensory function, Normal motor function Neuro: Normal gait, Normal speech Psych/Mental Status: Mental status NL, Mood NL Medications Current Medications Medications Dose Ordered Sig/Dejah Route Start Time Stop Time Status Last Admin Dose Admin Ceftriaxone Sodium 50 ml @ 100 mls/hr DAILY@09 IV 09/11/24 09:00 09/15/24 10:04 100 MLS/HR Clindamycin Phosphate 50 ml @ 50 mls/hr Q8HR IV 09/10/24 22:00 09/15/24 05:43 50 MLS/HR Spironolactone 50 mg DAILY PO 09/11/24 10:00 09/15/24 10:05 50 MG Clopidogrel Bisulfate 75 mg DAILY PO 09/11/24 10:00 09/15/24 10:05 75 MG Atorvastatin Calcium 10 mg HS PO 09/10/24 22:00 09/14/24 21:05 10 MG Furosemide 40 mg DAILY PO 09/11/24 10:00 09/14/24 10:00 40 MG Temazepam 15 mg QHSP PRN PO 09/10/24 20:00 09/14/24 23:10 15 MG Ondansetron HCl 4 mg Q4HP PRN IV 09/10/24 20:00 09/10/24 22:30 4 MG Enoxaparin Sodium 40 mg DAILY SC 09/11/24 10:00 09/15/24 10:06 40 MG Acetaminophen 650 mg Q6HP PRN PO 09/10/24 20:00 Hydralazine HCl 10 mg Q6HP PRN IV 09/10/24 23:00 09/12/24 21:30 10 MG Pantoprazole Sodium 40 mg BID IV 09/12/24 22:00 09/15/24 10:05 40 MG Morphine Sulfate 2 mg Q3HPRN PRN IV 09/13/24 09:45 09/13/24 21:50 2 MG Acetaminophen/ Hydrocodone Bitart 1 tab Q6HP PRN PO 09/13/24 09:45 Sucralfate 1 gm ACHS PO 09/13/24 17:00 09/15/24 11:47 1 GM Gabapentin 600 mg TID PO 09/13/24 14:00 09/15/24 05:42 600 MG Sertraline HCl 75 mg HS PO 09/13/24 22:00 09/14/24 21:04 75 MG Ciprofloxacin 500 mg Q12HR PO 09/14/24 22:00 09/15/24 10:05 500 MG Laboratory Results Laboratory Tests 09/11/24 06:14 09/13/24 05:35 Urinalysis Test 09/10/24 20:50 Urine Color Yellow (Yellow) Urine Clarity Turbid (Clear) H Urine pH 6.5 (5.0-9.0) Urine Specific [place] 1.021 (1.001-1.035) Urine Protein 1+ (Negative) H Urine Ketones 2+ (Negative) H Urine Blood 2+ /uL (Negative) H Urine Nitrite Negative (Negative) Urine Bilirubin Negative (Negative) Urine Urobilinogen 4 mg/dL (Negative) H Urine Leukocyte Esterase 2+ /uL (Negative) Urine RBC 119 /hpf (0 - 4) Urine WBC 71 /hpf (0 - 5) Urine Squamous Epithelial Cells Mod /hpf (<5) Urine Bacteria None seen /hpf (None Seen) Urine Yeast (Budding) Occasional /hpf (None Urine Glucose Normal mg/dL (Normal) Microbiology Microbiology Date/Time Source Procedure Growth Status 09/10/24 20:25 Foot Right Gram Stain - Final Complete 09/10/24 20:25 Wound Culture - Final Staphylococcus aureus Pseudomonas aeruginosa Complete Labs and/or images reviewed: Labs reviewed by me, Image(s) reviewed by me Assessment/Plan Assessment/Plan Covering for nurse practitioner Ben Spears Sepsis secondary to right foot cellulitis esophageal polyp with residual food debris. -hiatal hernia -rule out esophageal tear -COPD -chronic kidney disease stage IIIA -history of CVA -aspiration pneumonia -MRSA to right heel wound , continue clindamycin -right foot cellulitits continue clindamycin and Rocephin -Chronic Pain syndrome with morphine pump Plan discussed with: Patient Date of Service: Sep 15, 2024 Billing Provider: AMIE BONNER MD Common Visit Codes: [id number] INP/OBS CARE(HIGH) AMIE BONNER MD Sep 15, 2024 12:03
[2024-09-15 12:56] VITALS: BP 134/58; PULSE 74; RESP 16; TEMP 97.8; O2SAT 91
--- NOTE | 2024-09-15 15:23 | MEDREC ---
[facility] ASP Intervention Section I [facility] ASP Intervention: Duplication of therapy (PLEASE CONSIDER D/C ROCEPHIN - DUPLICATION WITH CIPRO) EVA PATRICK PHARMACIST Sep 15, 2024 15:23
[2024-09-15 17:00] VITALS: BP 111/55; PULSE 88; RESP 18; TEMP 97.8; O2SAT 97
[2024-09-15 22:00] VITALS: BP 106/50; PULSE 86; RESP 17; TEMP 98.1; O2SAT 95
--- NOTE | 2024-09-15 23:38 | DVHPN2 ---
Progress Note - Dictate Date Seen: Sep 15, 2024 Medical Necessity Reason Pt with a Central, PICC or Fol: No Subjective Patient seen at bedside Sleeping comfortably Patient is tolerating soft diet Patient had some loose stools this morning likely related to Gastrografin contrast vital signs Vital Sign Date Time Temp Pulse Resp B/P (MAP) Pulse Ox O2 Delivery O2 Flow Rate FiO2 09/15/24 22:00 98.1 86 17 106/50 (68) 95 98.1 09/15/24 08:00 Room Air* 0 21 Total Intake and Output 09/14/24 09/14/24 09/15/24 15:00 23:00 07:00 Intake Total 850 ml 210 ml 300 ml Balance 850 ml 210 ml 300 ml medications Current Medications Medications Dose Ordered Sig/Dejah Route Start Time Stop Time Status Last Admin Dose Admin Ceftriaxone Sodium 50 ml @ 100 mls/hr DAILY@09 IV 09/11/24 09:00 09/15/24 10:04 100 MLS/HR Clindamycin Phosphate 50 ml @ 50 mls/hr Q8HR IV 09/10/24 22:00 09/15/24 21:57 50 MLS/HR Spironolactone 50 mg DAILY PO 09/11/24 10:00 09/15/24 10:05 50 MG Clopidogrel Bisulfate 75 mg DAILY PO 09/11/24 10:00 09/15/24 10:05 75 MG Atorvastatin Calcium 10 mg HS PO 09/10/24 22:00 09/15/24 21:57 10 MG Furosemide 40 mg DAILY PO 09/11/24 10:00 09/14/24 10:00 40 MG Temazepam 15 mg QHSP PRN PO 09/10/24 20:00 09/14/24 23:10 15 MG Ondansetron HCl 4 mg Q4HP PRN IV 09/10/24 20:00 09/10/24 22:30 4 MG Enoxaparin Sodium 40 mg DAILY SC 09/11/24 10:00 09/15/24 10:06 40 MG Acetaminophen 650 mg Q6HP PRN PO 09/10/24 20:00 Hydralazine HCl 10 mg Q6HP PRN IV 09/10/24 23:00 09/12/24 21:30 10 MG Pantoprazole Sodium 40 mg BID IV 09/12/24 22:00 09/15/24 21:57 40 MG Morphine Sulfate 2 mg Q3HPRN PRN IV 09/13/24 09:45 09/13/24 21:50 2 MG Acetaminophen/ Hydrocodone Bitart 1 tab Q6HP PRN PO 09/13/24 09:45 Sucralfate 1 gm ACHS PO 09/13/24 17:00 09/15/24 21:57 1 GM Gabapentin 600 mg TID PO 09/13/24 14:00 09/15/24 21:57 600 MG Sertraline HCl 75 mg HS PO 09/13/24 22:00 09/15/24 21:57 75 MG Ciprofloxacin 500 mg Q12HR PO 09/14/24 22:00 09/15/24 21:57 500 MG objective General Appearance: Alert, Oriented X3, Cooperative, no distress HEENT: Atraumatic, PERRLA Cardiovascular: Normal S1, Normal S2 Abdomen: Normal bowel sounds Genitourinary: No Apparent Abnormalities Musculoskeletal: Normal sensory function, Normal motor function Neuro: Normal gait, Normal speech Psych/Mental Status: Mental status NL, Mood NL laboratory and microbiology Laboratory Tests 09/13/24 05:35 09/11/24 06:14 Test 09/11/24 06:14 Range/Units Serum Glucose 85 74-106 mg/dL Problems(with codes): (1) Choked on food (2) UTI (urinary tract infection) (3) Pneumonia (4) Aspiration pneumonia (5) Esophageal abnormality (6) Left leg cellulitis Prognosis Plan Patient underwent wound care She has been started on oral Cipro Midline has been placed Possible discharge planning in a.m. if she is stable Await final pathology results Patient is to follow up in my office as an outpatient in 2-4 weeks to review results and discuss further management Maintained on PPI and Carafate Dietary Evaluation Review Comments: 1) Consider GIGI 1 pkt BID for wound healing 2) Continue current plan of care Expected Outcomes/Goals: F/U in 3-5 days Plan discussed with: Patient JING GREENE MD Sep 15, 2024 23:38
[2024-09-16] VITALS (7 sets, daily range): BP systolic 97–122; BP diastolic 49–67; PULSE 59–85; RESP 17–20; TEMP 97.6–98.2; O2SAT 94–98
[2024-09-16] MEDS: HYDROcodone-ACET 10/325MG TAB PO PRN (09:40)
[2024-09-16] MEDS ORDERED: LEVO500T91 PO (10:39)
--- NOTE | 2024-09-16 10:45 | DVHDS2 ---
Discharge Summary Date of Admission Sep 10, 2024 at 19:54 Date of Discharge: Sep 16, 2024 Admitting Diagnosis Rule out aspiration pneumonia Labs/Diagnostic Data: Laboratory Results Test 09/13/24 05:35 09/11/24 06:14 09/10/24 20:50 09/10/24 18:22 White Blood Count 8.4 10^3/uL (4.4-10.8) Red Blood Count 4.63 10^6/uL (4.0-5.20) Hemoglobin 13.9 g/dL (12.2-16.2) Hematocrit 43.5 % (36.0-46.0) Mean Corpuscular Volume 94.0 fL (80.0-100.0) Mean Corpuscular Hemoglobin 30.0 pg (28.0-32.0) Mean Corpuscular Hemoglobin Concent 32.0 g/dL (32.0-36.0) Red Cell Distribution Width 16.1 % (11.8-14.3) Platelet Count 267 10^3/uL (140-450) Mean Platelet Volume 7.5 fL (6.9-10.8) Neutrophils (%) (Auto) 77.4 % (37.0-80.0) Lymphocytes (%) (Auto) 16.7 % (10.0-50.0) Monocytes (%) (Auto) 5.0 % (0.0-12.0) Eosinophils (%) (Auto) 0.5 % (0.0-7.0) Basophils (%) (Auto) 0.4 % (0.0-2.0) Neutrophils # (Auto) 6.5 10 ^3/uL (1.6-8.6) Lymphocytes # (Auto) 1.4 10 ^3/uL (0.4-5.4) Monocytes # (Auto) 0.4 10 ^3/uL (0-1.3) Eosinophils # (Auto) 0 10 ^3/uL (0-0.8) Basophils # (Auto) 0 10 ^3/uL (0-0.2) Nucleated Red Blood Cells 0.2 % Sodium Level 143 mmol/L (136-145) Potassium Level 3.7 mmol/L (3.5-5.1) Chloride Level 111 mmol/L (98-107) Carbon Dioxide Level 19 mmol/L (20-31) Anion Gap 13 (5-15) Blood Urea Nitrogen 17 mg/dL (9-23) Creatinine 0.98 mg/dL (0.550-1.02) Glomerular Filtration Rate Calc 57 mL/min (>90) BUN/Creatinine Ratio 17.3 (10.0-20.0) Serum Glucose 85 mg/dL (74-106) Calcium Level 9.6 mg/dL (8.7-10.4) Urine Color Yellow (Yellow) Urine Clarity Turbid (Clear) Urine pH 6.5 (5.0-9.0) Urine Specific [place] 1.021 (1.001-1.035) Urine Protein 1+ (Negative) Urine Ketones 2+ (Negative) Urine Blood 2+ /uL (Negative) Urine Nitrite Negative (Negative) Urine Bilirubin Negative (Negative) Urine Urobilinogen 4 mg/dL (Negative) Urine Leukocyte Esterase 2+ /uL (Negative) Urine RBC 119 /hpf (0 - 4) Urine WBC 71 /hpf (0 - 5) Urine Squamous Epithelial Cells Mod /hpf (<5) Urine Bacteria None seen /hpf (None Seen) Urine Yeast (Budding) Occasional /hpf (None Urine Glucose Normal mg/dL (Normal) Lactic Acid Level 0.9 mmol/L (0.4-2.0) Total Bilirubin 0.4 mg/dL (0.2-1.0) Aspartate Amino Transferase (AST) 16 U/L (13-40) Alanine Aminotransferase (ALT) 9 U/L (7-40) Alkaline Phosphatase 113 U/L (46-116) B-Type Natriuretic Peptide 111.86 pg/mL (0-100) Total Protein 7.5 g/dL (5.7-8.2) Albumin 4.1 g/dL (3.2-4.8) Other Laboratory Tests 09/13/24 05:35 09/11/24 06:14 Brief Hx & Hospital Course: History of Present Illness 83-year-old female presents for evaluation of difficulty swelling. Patient reports three days ago she felt food being stuck in throat and began to cough. Subsequently patient started having mild chest pain. She presents for evaluation of the symptoms. Denies shortness or breath. States having a nonproductive cough. No fever or chills. No other acute complaints. Course of hospitalization: After further discussion with the patient, gastroenterology consultation was placed. Patient underwent EGD with findings of residual food debris as well as a polyp, which were both advanced into the patient's stomach. Patient had follow up barium swallow evaluation which revealed no esophageal tear or extravasation of contrast. Patient was started on clear liquid diet which was advanced to regular diet. Patient had wound to her foot with mild drainage. Cultures came back positive for susceptible strains of Pseudomonas aeruginosa as well as Staphylococcus aureus. Patient was transitioned to Levaquin. Patient was agreeable to be discharged home with home health services for wound care to her foot as well as medication administration. She will follow up with her PCP in 1-2 weeks. All questions answered. Physical examination General: Alert and Oriented x3. No acute distress. Well-nourished. Obese Eyes: EOMI. Anicteric. HENT: Moist mucous membranes. Lungs: Clear to auscultation bilaterally. No accessory muscle use. Cardiovascular: Regular rate and rhythm. No murmur. No JVD. Abdomen: Soft, non-tender and non-distended. No palpable masses. Extremities: No edema. Non-tender. Skin: No rashes or lesions. Warm. Neurologic: No focal neurological deficits. CN II-XII grossly intact, but not individually tested. Psychiatric: Cooperative. Appropriate mood and affect. Total time spent with patient discussing and formulating plan of care: 35 minutes. This medical document was created using an electronic medical record system with [employer] dictation system. Although this document has been carefully reviewed, there may still be some phonetic and typographical errors. These areas are purely typographical due to imperfections of the software programs, and do not reflect any compromise in the patient's medical care. Consults/Reason for consult Gastroenterology: Questionable esophageal stricture with food obstruction Operations or Procedures 09/12/2024: EGD with biopsy Condition at Discharge: Fair Final Diagnosis/Problems List Aspiration pneumonia. Infected foot ulcer with staph areas, pseudomonas a. Secondary Diagnosis: -esophageal polyp with residual food debris. -hiatal hernia -rule out esophageal tear -COPD -chronic kidney disease stage IIIA -history of CVA -aspiration pneumonia -Staphylococcus aureus to right heel -right foot cellulitits -Chronic Pain syndrome with morphine pump Discharge Disposition: Home with Health Services Discharge Instruct/Medications Diet: Regular Activity: No Restrictions, As Tolerated Follow Up/Referral: DC clinic in 1 week PCP in 1-2 weeks Medications: Protonix 40mg po bid x 30 days Levaquin 500mg po daily x 10 days 36 Discharge Statement: "Patient was advised to return to the ER or call 911 if any headaches, dizziness, shortness of breath, chest pain, abdominal pain, bleeding, fevers, or worsening of medical condition. Patient was counseled about treatment plan, medications, possible side effects, patientverbalized understanding. All questions were answered to the best of my ability. This discharge took greater then 30 minutes in planning, reviewing documentation, counseling the patient, and discussing with other team members." ASSESSMENT ASSESSMENT Assessment Aspiration pneumonia. Infected foot ulcer with staph areas, pseudomonas a. Date of Service: Sep 16, 2024 Billing Provider: SATISH MADDEN NP Common Visit Codes: 80068-EOG/OBS DISCH DAY >30min SATISH MADDEN NP Sep 16, 2024 10:45
== END 2024-09-16 18:45 | disposition home or self-care (01) | DRG 391 ==
LOC: ER 14:25 → OVERFLOW 19:54 → WEST WING 22:58
PROVIDERS: ADMIT Nurse Practitioner; ATTEND Nurse Practitioner Acute Care
PROC: 0DB68ZX Excision of Stomach, Via Natural or Artificial Opening Endoscopic, Diagnostic (ICD-10-PCS; 2024-09-12)
PROC: 0DB38ZX Excision of Lower Esophagus, Via Natural or Artificial Opening Endoscopic, Diagnostic (ICD-10-PCS; 2024-09-12)
PROC: 0DC38ZZ Extirpation of Matter from Lower Esophagus, Via Natural or Artificial Opening Endoscopic (ICD-10-PCS; 2024-09-12)
PROC: 0DB98ZX Excision of Duodenum, Via Natural or Artificial Opening Endoscopic, Diagnostic (ICD-10-PCS; principal; 2024-09-12 09:58)
PROC: 05HC33Z Insertion of Infusion Device into Left Basilic Vein, Percutaneous Approach (ICD-10-PCS; 2024-09-15)
PROC: B54NZZA Ultrasonography of Left Upper Extremity Veins, Guidance (ICD-10-PCS; 2024-09-15)
DX: K22.81 Esophageal polyp (principal); J69.0 Pneumonitis due to inhalation of food and vomit; L03.115 Cellulitis of right lower limb; N17.9 Acute kidney failure, unspecified; J44.0 Chronic obstructive pulmonary disease with (acute) lower respiratory infection; I13.0 Hypertensive heart and chronic kidney disease with heart failure and stage 1 through stage 4 chronic kidney disease, or unspecified chronic kidney disease; K22.2 Esophageal obstruction; K20.90 Esophagitis, unspecified without bleeding; K29.80 Duodenitis without bleeding; K29.70 Gastritis, unspecified, without bleeding; E87.6 Hypokalemia; N18.31 Chronic kidney disease, stage 3a; G89.4 Chronic pain syndrome; I50.9 Heart failure, unspecified; L97.519 Non-pressure chronic ulcer of other part of right foot with unspecified severity; E78.5 Hyperlipidemia, unspecified; K44.9 Diaphragmatic hernia without obstruction or gangrene; Z90.710 Acquired absence of both cervix and uterus; Z95.1 Presence of aortocoronary bypass graft; Z90.49 Acquired absence of other specified parts of digestive tract; Z86.73 Personal history of transient ischemic attack (TIA), and cerebral infarction without residual deficits; Z83.3 Family history of diabetes mellitus; Z87.442 Personal history of urinary calculi; Z79.82 Long term (current) use of aspirin; Z79.899 Other long term (current) drug therapy
CPT/HCPCS: 36415; 71046; 71250; 73630; 74246; 80048; 80053; 81001; 83605; 83880; 85025; 87077; 87186; 87205; 92610; G0378; J1885; J2405; J2470; J2704; J3490

== ENCOUNTER 2024-11-25 15:22 | Inpatient (IN) | payer OTHER, MEDICAID ==
[~2024-11-25] VITALS: Ht 185.4 cm; Wt 77.9 kg
[~2024-11-25 15:22] MED LIST changes: +ALEN70TA74 PO; -ASCO500T11 PO; -ASPI-543 PO; -ATOR-507 PO; -BUPR-346 PO; -CELE200C PO; -CLIN150C PO; -CLOP75TA28 PO; -CYAN500L4 PO; -FURO1TAB31 PO; +LEVO500T91 PO; -SPIR25TA PO; -VITA200T2 PO
--- NOTE | 2024-11-25 16:12 | ECG ---
[facility] Test Date: 2024-11-25 Test Time: 15:59:00 Pat Name: DELONTE GLORIA Department: ER Room: 0278 Gender: F President And Chief Operating Officer: NELI : 1940 Requested By: LUPE FUENTES Order Number: [id number] Reading MD: Alexis Morales Measurements Intervals [place] Rate: 81 P: 166 FL: 197 QRS: 122 QRSD: 93 T: 261 QT: 399 QTc: 464 Interpretive Statements Sinus or ectopic atrial rhythm Atrial premature complex Right axis deviation Repol abnrm suggests ischemia, diffuse leads Minimal ST elevation, inferior leads Electronically Signed On 11-30-2024 17:22:21 PST by Alexis Morales Please click the below link to view image of tracing.
--- NOTE | 2024-11-25 16:51 | ED.PDOC ---
History of Present Illness HPI Comments 84-year-old female came in complaining of coughing up bright red blood mixed with sputum since yesterday. She has been feeling nauseated for the past few days. Patient does have blood-tinged sputum which she brought from home. She does take aspirin daily. Denies use of any other blood thinners. History of hypertension and possible CHF. Chief Complaint: Cough Time Seen by MD: 16:38 Primary Care Provider: ABEL Reviewed Notes: Nurses Notes, Medications, Allergies Allergies: Coded Allergies: NO KNOWN ALLERGIES (Unverified , 12/22/22) Home Meds Active Scripts Levofloxacin Hemihydrate (LEVAQUIN 500 MG) 500 Mg Tab, 500 MG PO DAILY for 10 Days, #10 TAB Prov:SATISH MADDEN RN [facility] 09/16/24 Reported Medications Hydroxyzine Hcl (Hydroxyzine Hcl) 50 Mg Tab, 1 TAB PO BID for 30 Days, #60 09/12/24 Glipizide (Glipizide) 5 Mg Tab, 1 TAB PO DAILY for 90 Days, #90 09/12/24 Hydrocodone-Acetaminophen (Hydrocodone Bitartrate/AC 10-325 mg) 1 Tab Tab, 1 TAB PO Q8HR for 30 Days, #90 [HYDROCODONE/ACETAMINOPHEN 10/325 MG] 09/12/24 Alendronate Sodium (Alendronate Sodium) 70 Mg Tab, 1 TAB PO QWEEKLY for 84 Days, #12 09/12/24 Spironolactone (Spironolactone) 25 Mg Tab, 1 TAB PO DAILY for 30 Days, #30 09/12/24 Atorvastatin Calcium (Lipitor) 10 Mg Tab, 1 TAB PO DAILY for 30 Days, #30 09/12/24 Cholecalciferol (VITAMIN D3) 2,000 Unit Tab, 1 TAB PO DAILY for 90 Days 12/22/22 Sertraline Hcl (Sertraline Hcl) 50 Mg Tab, 1.5 TAB PO QAM for 90 Days, #135 12/22/22 Metoprolol Succinate (Metoprolol Succinate Er) 25 Mg Tab, 1 TAB PO DAILY for 90 Days, #90 12/22/22 Furosemide (Furosemide) 40 Mg Tab, 40 MG PO DAILY for 30 Days 12/22/22 Gabapentin (Gabapentin) 300 Mg Cap, 600 MG PO TID for 30 Days, MG 12/22/22 Duloxetine Hcl (Cymbalta) 60 Mg Cap, 1 CAP PO HS for 30 Days, #30 12/22/22 Clopidogrel Bisulfate (CLOPIDOGREL) 75 Mg Tab, 75 MG PO HS for 30 Days, MG 12/22/22 Zonisamide (Zonisamide) 100 Mg Cap, 6 CAP PO HS for 30 Days, #180 12/22/22 Information Source: Patient Mode of Arrival: Wheelchair Severity: Moderate Timing: Days Duration: Since onset Past Medical History PAST MEDICAL HISTORY: Cancer, CHF, CKF, COPD, CVA, High Lipids, Kidney Stones Surgical History: Appendectomy, CABG, Cholecystectomy, Hysterectomy, Tonsillectomy ENVIRONMENTAL EDUCATOR History: No Pertinent ENVIRONMENTAL EDUCATOR History Family History Family History: Reviewed,noncontributory to illness, No family hx of Cancer, No family hx of DM, No family hx of Heart heath, No family hx of HTN, No family hx ofKidney heath, No family hx of Liver heath, No family hx of Lung heath, No family hx of Stroke Social History Smoker: Non-Smoker Alcohol: Denies ETOH Use Drugs: Denies Drug Use Lives In: Home Constitutional: denies: chills, diaphoresis, fatigue, fever, malaise, sweats, weakness, others EENTM: denies: blurred vision, double vision, ear bleeding, ear discharge, ear drainage, ear pain, ear ringing, eye pain, eye redness, hearing loss, mouth pain, mouth swelling, nasal discharge, nose bleeding, nose congestion, nose pain, photophobia, tearing, throat pain, throat swelling, voice changes, others Respiratory: reports: cough, hemoptysis; denies: orthopnea, SOB at rest, shortness of breath, SOB with excertion, stridor, wheezing, others Cardiovascular: denies: chest pain, dizzy spells, diaphoresis, Dyspnea on exe rtion, edema, irregular heart beat, left arm pain, lightheadedness, palpitations, PND, syncope, others Gastrointestinal: denies: abdomen distended, abdominal pain, blood streaked bowels, constipated, diarrhea, dysphagia, difficulty swallowing, hematemesis, melena, nausea, poor appetite, poor fluid intake, rectal bleeding, rectal pain, vomiting, others Genitourinary: denies: abnormal vagina bleeding, burning, dyspareunia, dysuria, flank pain, frequency, hematuria, incontinence, pain, , vagina discharge, urgency, others Neurological: denies: dizziness, fainting, headache, left sided numbness, left sided weakness, numbness, paresthesia, pre-existing deficit, right sided numbness, right sided weakness, seizure, speech problems, tingling, tremors, weakness, others Musculoskeletal: denies: back pain, gout, joint pain, joint swelling, muscle pain, muscle stiffness, neck pain, others Integumetry: denies: bruises, change in color, change in hair/nails, dryness, laceration, lesions, lumps, rash, wounds, others Allergic/Immunocompromised: denies: Difficulty Healing, Frequent Infections, Hives, Itching, others Hematologic/Lymphatic: denies: anemia, blood clots, easy bleeding, easy bruising, swollen glands, others Endocrine: denies: excessive hunger, excessive sweating, excessive thirst, excessive urination, flushing, intolerance to cold, intolerance to heat, unexplained weight gain, unexplained weight loss, others Psychiatric: denies: anxiety, bipolar disorder, depression, hopeless, panic disorder, schizophrenia, sleepless, suicidal, others Physical Exam General Appearance: Moderate Distress HEENT: Normal ENT Inspection, Pharynx Normal, TMs Normal Neck: Full Range of Motion, Non-Tender, Normal, Normal Inspection Respiratory: Other (Coarse breath sounds) Cardiovascular: No Edema, No JVD, No Murmur, No Gallop, Normal Peripheral Pu lses, Regular Rate/Rhythm Breast Exam: Deferred Gastrointestinal: No Organomegaly, Non Tender, No Pulsatile Mass, Normal Bowel Sounds, Soft Genitalia: Deferred Pelvic: Deferred Rectal: Deferred Extremities: Pedal edema Musculoskeletal : Apperance: Normal Neurologic: Alert Cerebellar Function: NOT DONE Reflexes: NOT DONE Skin: Normal Color Peripheral Pulses: 3+ Radial (R), 3+ Radial (L) Lymphatic: No Adenopathy Was a procedure done? Was a procedure done?: No Differential Dx Considerations may include: Hemoptysis Electrolyte imbalance X-Ray, Labs, Meds, VS Vital Signs Date Time Temp Pulse Resp B/P (MAP) Pulse Ox O2 Delivery O2 Flow Rate FiO2 11/25/24 16:12 97.9 92 18 187/76 (113) 99 11/25/24 15:59 81 Patient alert. Coughing up blood. Vitals stable. Answering all questions. Pulmonary consultation. Blood pressure elevated. Was given clonidine. Saturation pristine on room air. Possibly need bronchoscopy. Establish intravenous access. Was given Rocephin. Was given clindamycin. Possible aspiration pneumonia. Was given Protonix. Explained to the patient. Continue cardiac monitoring. EKG reviewed does not show any acute process. Time of 1ST Reevaluation: 16:55 Reevaluation 1ST: Unchanged Patient Education/Counseling: Diagnosis, Treatment, Prognosis Family Education/Counseling: No Family Present Departure 1 Departure Time of Disposition: 16:56 Impression: Primary Impression: Aspiration pneumonia Qualified Codes: J69.0 - Pneumonitis due to inhalation of food and vomit Additional Impression: Hypertension Qualified Codes: I10 - Essential (primary) hypertension Disposition: 09 ADMITTED INPATIENT Admit to: Med Surg Condition: Guarded Critical Care Note Critical Care Time?: No Stability Stability form required: No Heart Score Heart Score: Heart Score Response (Comments) Value History Slightly Suspicious 0 EKG Normal 0 Age >65 2 Risk Factors >3 or Hx ASHD 2 Troponin Normal limit 0 Total 4 LUPE FUENTES MD Nov 25, 2024 16:51
[2024-11-25 17:13] LABS: Basophils # (auto) 0 10 ^3/uL (0-0.2); Basophils % (auto) 0.4 % (0.0-2.0); Eosinophils # (auto) 0.1 10 ^3/uL (0-0.8); Eosinophils % (auto) 0.7 % (0.0-7.0); Hematocrit 38.8 % (36.0-46.0); Hemoglobin 12.8 g/dL (12.2-16.2); Lymphocytes # (auto) 1.4 10 ^3/uL (0.4-5.4); Lymphocytes % (auto) 18.4 % (10.0-50.0); Mean Corpuscular Hemoglobin 29.6 pg (28.0-32.0); Mean Corpuscular Hgb Conc. 32.9 g/dL (32.0-36.0); Monocytes # (auto) 0.5 10 ^3/uL (0-1.3); Monocytes % (auto) 6.3 % (0.0-12.0); Neutrophils # (auto) 5.6 10 ^3/uL (1.6-8.6); Neutrophils % (auto) 74.2 % (37.0-80.0); Platelet Count (auto) 244 10^3/uL (140-450); Red Blood Cells 4.31 10^6/uL (4.0-5.20); Red Cell Distribution Width 14.9 % (11.8-14.3); White Blood Cell 7.5 10^3/uL (4.4-10.8)
--- NOTE | 2024-11-25 17:17 | DVH ---
EXAM: XR Chest, 1 View CLINICAL INDICATION: sob TECHNIQUE: Frontal view of the chest. COMPARISON: XY CHEST PORTABLE on DOS: 05/04/23, XY CHEST PORTABLE on DOS: 12/26/22 FINDINGS: LUNGS AND PLEURAL SPACES: See below. HEART: Cardiomegaly with mild congestion. MEDIASTINUM: Unremarkable. Normal mediastinal contour. BONES/JOINTS: Unremarkable. No acute fracture. OTHER FINDINGS: . IMPRESSION: Cardiomegaly with mild congestion.
[2024-11-25 17:23] LABS: Potassium 4.1 mmol/L (3.5-5.1); Sodium 142 mmol/L (136-145)
[2024-11-25 17:24] LABS: Anion Gap 13 (5-15)
[2024-11-25 17:25] LABS: Calcium 9.3 mg/dL (8.7-10.4)
[2024-11-25 17:30] LABS: BUN/Creatinine Ratio 17.5 (10.0-20.0); Blood Urea Nitrogen 22 mg/dL (9-23); Carbon Dioxide 19 mmol/L (20-31); Chloride 110 mmol/L (98-107); Glucose 115 mg/dL (74-106)
[2024-11-25] MEDS: cloNIDine HCL 0.1 MG TAB PO ONE (21:08)
[2024-11-25] MEDS: PANTOPRAZOLE 40 MG/10 ML VIAL INJ IV ONE (21:09)
[2024-11-25 21:10] VITALS: PULSE 73; RESP 16; O2SAT 98
[2024-11-25] MEDS ORDERED: MORPHINE SULFATE INJ 2 MG/ml SYRG IV PRN (22:15)
[2024-11-25] MEDS ORDERED: hydrALAZINE HCL 20 MG/ML VL IV PRN (22:15)
[2024-11-25] MEDS: D5W/SOD CHLO 0.9% 1,000 ML IV ONE (22:29)
--- NOTE | 2024-11-25 22:46 | DVHHP2 ---
History of Present Illness Reason for Visit: Dysphagia History of Present Illness 84-year-old female presents for evaluation of difficulty swallowing. Patient reports a two day history of being unable to swallow any solids or liquids. She reports having a similar episode two months ago and reports having a narrowing in her esophagus. She has not followed up with GI since discharge. She denies shortness or breath or chest pain. No nausea or vomiting. No other acute complaints reported. Past Medical History Chronic kidney disease, COPD, CHF, cancer, CVA, dyslipidemia, esophageal stricture Past Surgical History CABG, appendectomy, cholecystectomy, hysterectomy, tonsillectomy Family History Noncontributory Smoke: No ALCOHOL: none Drugs: None Lives: with Family Review of Systems Review of Systems Review of systems are currently negative otherwise addressed in HPI. Allergies: Coded Allergies: NO KNOWN ALLERGIES (Unverified , 12/22/22) Medications Current Medications Medications Dose Ordered Sig/Dejah Route Start Time Stop Time Status Last Admin Dose Admin Hydralazine HCl 10 mg Q6HP PRN IV 11/25/24 22:15 Ondansetron HCl 4 mg Q4HP PRN IV 11/25/24 22:15 Morphine Sulfate 2 mg Q6HPRN PRN IV 11/25/24 22:15 Exam Vital Signs Vital Signs Date Time Temp Pulse Resp B/P (MAP) Pulse Ox O2 Delivery O2 Flow Rate FiO2 11/25/24 21:10 73 16 98 Room Air* 0 21 11/25/24 21:09 98.1 158/72 (100) 98.1 Exam Gen: 84-year-old female in mild distress Skin: Warm, dry, normal color and texture, no rash. HEENT: Normocephalic atraumatic, mucous membranes moist and pink. Neck: Cervical and supraclavicular nodes normal without enlargement, trachea is midline, thyroid gland is normal without masses. Pulmonary: Clear to auscultation and percussion bilaterally. Cardiac: Regular rate and rhythm. No murmur Abdomen: Soft, nontender, nondistended, bowel sounds present all 4 quadrants, no guarding, no rigidity, no organomegaly. Extremities: No cyanosis, clubbing, no edema Neuro: Cranial nerves II through XII grossly intact, normal affect and speech, no focal motor deficits. Labs/Xrays ORDERING PHYSICIAN: LUPE FUENTES MD PROCEDURE(s): CXRP - CHEST PORTABLE REASON: sob ORDER NUMBER(s): [id number], ACCESSION NUMBER(s): [id number] EXAM: XR Chest, 1 View CLINICAL INDICATION: sob TECHNIQUE: Frontal view of the chest. COMPARISON: XY CHEST PORTABLE on DOS: 05/04/23, XY CHEST PORTABLE on DOS: 12/26/22 FINDINGS: LUNGS AND PLEURAL SPACES: See below. HEART: Cardiomegaly with mild congestion. MEDIASTINUM: Unremarkable. Normal mediastinal contour. BONES/JOINTS: Unremarkable. No acute fracture. OTHER FINDINGS: . IMPRESSION: Cardiomegaly with mild congestion. Labs Test 11/25/24 16:59 Range/Units White Blood Count 7.5 4.4-10.8 10^3/uL Red Blood Count 4.31 4.0-5.20 10^6/uL Hemoglobin 12.8 12.2-16.2 g/dL Hematocrit 38.8 36.0-46.0 % Mean Corpuscular Volume 90.0 80.0-100.0 fL Mean Corpuscular Hemoglobin 29.6 28.0-32.0 pg Mean Corpuscular Hemoglobin Concent 32.9 32.0-36.0 g/dL Red Cell Distribution Width 14.9 H 11.8-14.3 % Platelet Count 244 140-450 10^3/uL Mean Platelet Volume 7.3 6.9-10.8 fL Neutrophils (%) (Auto) 74.2 37.0-80.0 % Lymphocytes (%) (Auto) 18.4 10.0-50.0 % Monocytes (%) (Auto) 6.3 0.0-12.0 % Eosinophils (%) (Auto) 0.7 0.0-7.0 % Basophils (%) (Auto) 0.4 0.0-2.0 % Neutrophils # (Auto) 5.6 1.6-8.6 10 ^3/uL Lymphocytes # (Auto) 1.4 0.4-5.4 10 ^3/uL Monocytes # (Auto) 0.5 0-1.3 10 ^3/uL Eosinophils # (Auto) 0.1 0-0.8 10 ^3/uL Basophils # (Auto) 0 0-0.2 10 ^3/uL Nucleated Red Blood Cells 0.0 % Sodium Level 142 136-145 mmol/L Potassium Level 4.1 3.5-5.1 mmol/L Chloride Level 110 H 98-107 mmol/L Carbon Dioxide Level 19 L 20-31 mmol/L Anion Gap 13 5-15 Blood Urea Nitrogen 22 9-23 mg/dL Creatinine 1.26 H 0.550-1.02 mg/dL Glomerular Filtration Rate Calc 42 >90 mL/min BUN/Creatinine Ratio 17.5 10.0-20.0 Serum Glucose 115 H 74-106 mg/dL Calcium Level 9.3 8.7-10.4 mg/dL Troponin I High Sensitivity 10 </=34 ng/L B-Type Natriuretic Peptide 144.55 0-100 pg/mL Assessment/Plan Assessment/Plan Assessment Esophageal stricture Hypertension Dysphagia Plan Admit the patient to [facility] to the hospitalist GI consultation NPO Maintenance IV fluids Continue treatment per orders. Plan discussed with: Patient My Orders Orders - MAURA CLARK Procedure Category Date Status Time * Gi Dvh Resident Services Coordinator CONS 11/25/24 Transmitted 22:06 Hydralazine Injection PHA 11/25/24 In Process (Apresoline Inject 22:15 D5w/Sod Chlo 0.9% PHA 11/25/24 In Process (D5w Ns 0.9%) 22:15 Basic Metabolic Panel LAB 11/26/24 Verified 04:00 Admit ADMIT 11/25/24 Transmitted 22:06 Ondansetron Hcl PHA 11/25/24 In Process (Zofran) 22:15 Npo (Nothing By DIET 11/26/24 Transmitted Mouth) Diet Breakfast Condition: Stable JAKY 11/25/24 In Process 22:06 Bedrest With Bathroom JAKY 11/25/24 In Process Privileg 22:06 Morphine Sulfate PHA 11/25/24 In Process Injection 22:15 Date of Service: Nov 25, 2024 Billing Provider: MAURA CLARK Common Visit Codes: [id number] INP/OBS CARE (HIGH) MAURA CLARK Nov 25, 2024 22:46
[2024-11-26 00:51] VITALS: BP 156/74; PULSE 72; PULSE 93; RESP 20; TEMP 98.3; O2SAT 99
[2024-11-26] MEDS: hydrALAZINE HCL 20 MG/ML VL IV PRN (01:37)
[2024-11-26 05:00] VITALS: BP 148/56; PULSE 72; RESP 18; TEMP 98.2; O2SAT 98
[2024-11-26 08:42] LABS: Potassium 3.8 mmol/L (3.5-5.1); Sodium 144 mmol/L (136-145)
[2024-11-26 08:43] LABS: Anion Gap 13 (5-15)
[2024-11-26 08:44] LABS: Calcium 9.3 mg/dL (8.7-10.4)
[2024-11-26 08:48] LABS: Glucose 92 mg/dL (74-106)
[2024-11-26 08:49] LABS: Blood Urea Nitrogen 22 mg/dL (9-23)
[2024-11-26 08:51] LABS: Carbon Dioxide 19 mmol/L (20-31); Chloride 112 mmol/L (98-107)
[2024-11-26 09:09] VITALS: BP 166/72; PULSE 82; RESP 18; TEMP 98.1; O2SAT 98
[2024-11-26 13:00] VITALS: BP 145/70; PULSE 82; RESP 17; TEMP 98; O2SAT 95
[2024-11-26 17:09] VITALS: BP 150/67; PULSE 71; RESP 17; TEMP 97.9; O2SAT 99
--- NOTE | 2024-11-26 17:28 | DVHINCON2 ---
Date of service: Nov 26, 2024 Referring Physician Scott Baltazar Reason for Consultation Oropharyngeal dysphagia History of Present Illness 84-year-old female presents for evaluation of difficulty swallowing. Patient reports a two day history of being unable to swallow any solids or liquids. She reports having a similar episode two months ago and reports having a narrowing in her esophagus. She has not followed up with GI since discharge. She denies shortness or breath or chest pain. No nausea or vomiting. No other acute complaints reported. I had performed an endoscopy for her during her last admission in July 14, 2024 which had shown esophagitis with inflammatory changes Operative Report DATE OF OPERATION: 09/12/24 PROCEDURE: Upper Endoscopy biopsy and removal of foreign body PREOPERATIVE INDICATION: The patient is a 84 -year-old female undergoing endoscopy for suspected food impaction and esophageal discomfort and burning POSTOPERATIVE DIAGNOSES: 1. Patient had a small amount of residual debris in the distal esophagus and there was a moderate size 2-3 cm inflamed polypoid tissue that dislodged when the endoscope and the debris was pushed into the stomach 2. Patient had underlying a hiatal hernia about 2-3 cm with a esophagitis and oozing from the distal esophagus 3. Mild antral gastritis and mild duodenitis of the duodenal bulb otherwise n ormal examination up to the 2nd and 3rd part of the duodenum PROCEDURE PERFORMED BY: Jing Heran Pathology was negative and just showed inflammatory tissue without any cancer Past Medical History Past Medical History Chronic kidney disease, COPD, CHF, cancer, CVA, dyslipidemia, esophageal stricture Past Surgical History Past Surgical History CABG, appendectomy, cholecystectomy, hysterectomy, tonsillectomy; recent endoscopy Family History: Diabetes mellitus 19 CHILD 19 CHILD 19 CHILD Allergies: Coded Allergies: NO KNOWN ALLERGIES (Unverified , 12/22/22) Home Meds Active Scripts Levofloxacin Hemihydrate (LEVAQUIN 500 MG) 500 Mg Tab, 500 MG PO DAILY for 10 Days, #10 TAB Prov:SATISH MADDEN DOCUMENT PREPARATION SPECIALIST 09/16/24 Reported Medications Hydroxyzine Hcl (Hydroxyzine Hcl) 50 Mg Tab, 1 TAB PO BID for 30 Days, #60 09/12/24 Glipizide (Glipizide) 5 Mg Tab, 1 TAB PO DAILY for 90 Days, #90 09/12/24 Hydrocodone-Acetaminophen (Hydrocodone Bitartrate/AC 10-325 mg) 1 Tab Tab, 1 TAB PO Q8HR for 30 Days, #90 [HYDROCODONE/ACETAMINOPHEN 10/325 MG] 09/12/24 Alendronate Sodium (Alendronate Sodium) 70 Mg Tab, 1 TAB PO QWEEKLY for 84 Days, #12 09/12/24 Spironolactone (Spironolactone) 25 Mg Tab, 1 TAB PO DAILY for 30 Days, #30 09/12/24 Atorvastatin Calcium (Lipitor) 10 Mg Tab, 1 TAB PO DAILY for 30 Days, #30 09/12/24 Cholecalciferol (VITAMIN D3) 2,000 Unit Tab, 1 TAB PO DAILY for 90 Days 12/22/22 Sertraline Hcl (Sertraline Hcl) 50 Mg Tab, 1.5 TAB PO QAM for 90 Days, #135 12/22/22 Metoprolol Succinate (Metoprolol Succinate Er) 25 Mg Tab, 1 TAB PO DAILY for 90 Days, #90 12/22/22 Furosemide (Furosemide) 40 Mg Tab, 40 MG PO DAILY for 30 Days 12/22/22 Gabapentin (Gabapentin) 300 Mg Cap, 600 MG PO TID for 30 Days, MG 12/22/22 Duloxetine Hcl (Cymbalta) 60 Mg Cap, 1 CAP PO HS for 30 Days, #30 12/22/22 Clopidogrel Bisulfate (CLOPIDOGREL) 75 Mg Tab, 75 MG PO HS for 30 Days, MG 12/22/22 Zonisamide (Zonisamide) 100 Mg Cap, 6 CAP PO HS for 30 Days, #180 12/22/22 Current Medications Current Medications Medications (Trade) Dose Ordered Sig/Dejah Route PRN Reason Start Time Stop Time Status Last Admin Hydralazine HCl (Apresoline Injection) 10 mg Q6HP PRN IV SBP>150 11/25/24 22:15 11/26/24 01:29 DC Ondansetron HCl (Zofran) 4 mg Q4HP PRN IV NAUSEA / VOMITING 11/25/24 22:15 Morphine Sulfate 2 mg Q6HPRN PRN IV SEVERE PAIN (7-10 PAIN SCALE) 11/25/24 22:15 Hydralazine HCl (Apresoline Injection) 10 mg Q6HP PRN IV SBP>150 11/26/24 01:30 11/26/24 09:00 Vital Signs Vital Signs Date Time Temp Pulse Resp B/P (MAP) Pulse Ox O2 Delivery O2 Flow Rate FiO2 11/26/24 17:09 97.9 71 17 150/67 (94) 99 97.9 11/26/24 08:07 Room Air* 0 21 Physical Exam Gen: 84-year-old female sleeping in no distress Skin: Warm, dry, normal color and texture, no rash. HEENT: Normocephalic atraumatic, mucous membranes moist and pink. Neck: Cervical and supraclavicular nodes normal without enlargement, trachea is midline, thyroid gland is normal without masses. Pulmonary: Clear to auscultation and percussion bilaterally. Cardiac: Regular rate and rhythm. No murmur Abdomen: Soft, nontender, nondistended, bowel sounds present all 4 quadrants, no guarding, no rigidity, no organomegaly. Extremities: No cyanosis, clubbing, no edema Neuro: Cranial nerves II through XII grossly intact, normal affect and speech, no focal motor deficits. Labs/Diagnostic Data Labs Test 11/26/24 07:59 11/25/24 16:59 Range/Units Sodium Level 144 136-145 mmol/L Potassium Level 3.8 3.5-5.1 mmol/L Chloride Level 112 H 98-107 mmol/L Carbon Dioxide Level 19 L 20-31 mmol/L Anion Gap 13 5-15 Blood Urea Nitrogen 22 9-23 mg/dL Creatinine 1.10 H 0.550-1.02 mg/dL Glomerular Filtration Rate Calc 49 >90 mL/min BUN/Creatinine Ratio 20.0 10.0-20.0 Serum Glucose 92 74-106 mg/dL Calcium Level 9.3 8.7-10.4 mg/dL White Blood Count 7.5 4.4-10.8 10^3/uL Red Blood Count 4.31 4.0-5.20 10^6/uL Hemoglobin 12.8 12.2-16.2 g/dL Hematocrit 38.8 36.0-46.0 % Mean Corpuscular Volume 90.0 80.0-100.0 fL Mean Corpuscular Hemoglobin 29.6 28.0-32.0 pg Mean Corpuscular Hemoglobin Concent 32.9 32.0-36.0 g/dL Red Cell Distribution Width 14.9 H 11.8-14.3 % Platelet Count 244 140-450 10^3/uL Mean Platelet Volume 7.3 6.9-10.8 fL Neutrophils (%) (Auto) 74.2 37.0-80.0 % Lymphocytes (%) (Auto) 18.4 10.0-50.0 % Monocytes (%) (Auto) 6.3 0.0-12.0 % Eosinophils (%) (Auto) 0.7 0.0-7.0 % Basophils (%) (Auto) 0.4 0.0-2.0 % Neutrophils # (Auto) 5.6 1.6-8.6 10 ^3/uL Lymphocytes # (Auto) 1.4 0.4-5.4 10 ^3/uL Monocytes # (Auto) 0.5 0-1.3 10 ^3/uL Eosinophils # (Auto) 0.1 0-0.8 10 ^3/uL Basophils # (Auto) 0 0-0.2 10 ^3/uL Nucleated Red Blood Cells 0.0 % Troponin I High Sensitivity 10 </=34 ng/L B-Type Natriuretic Peptide 144.55 0-100 pg/mL CXR IMPRESSION: Cardiomegaly with mild congestion. Problems(with codes): (1) Dysphagia (2) Hiatal hernia with GERD and esophagitis (3) Esophageal abnormality (4) Hypertension (5) Aspiration pneumonia (6) Choked on food Plan/Recommendation Plan Protonix 40 mg IV q.12 hours Carafate suspension 1 g p.o. 4 times a day DC aspirin NSAIDs smoking alcohol Clear liquid diet I will tentatively schedule him for a repeat endoscopy with possible biopsy possible dilation in case the patient has developed an esophageal stricture Further recommendations will made after the above Plan discussed with: Patient JING HEARN MD Nov 26, 2024 17:28
[2024-11-26 21:00] VITALS: BP 163/66; PULSE 79; RESP 17; TEMP 97.9; O2SAT 97
[2024-11-26] MEDS: SUCRALFATE 1 GM/10 ML ORAL SUSP PO SCH (21:11)
[2024-11-26] MEDS: PANTOPRAZOLE 40 MG/10 ML VIAL INJ IV SCH (21:11)
[2024-11-27] VITALS (7 sets, daily range): BP systolic 140–173; BP diastolic 51–71; PULSE 64–86; RESP 16–18; TEMP 97.6–98.4; O2SAT 95–98
[2024-11-27 05:12] LABS: Urine Bacteria None Seen /hpf (None Seen)
[2024-11-27 05:31] LABS: Urine Blood 2+ /uL (Negative); Urine Budding Yeast OCCASIONAL /hpf (None Seen); Urine Clarity Turbid (Clear); Urine Color Light-Yellow (Yellow); Urine Hyaline Cast FEW /lpf (0 - 2); Urine Protein, UAD TRACE (Negative); Urine Specific Gravity 1.019 (1.001-1.035); Urine Squamous Epithelial Cell FEW /hpf (<5); Urine Urobilinogen Normal (Negative); Urine WBC 33 /HPF (0-5); Urine pH 5.5 (5.0-9.0)
[2024-11-27 06:14] LABS: INR 1.07 (0.9-1.15); Prothrombin Time 11.3 sec (9.3-11.8)
--- NOTE | 2024-11-27 13:27 | DVHOP2 ---
Operative Report DATE OF OPERATION: 11/27/24 PROCEDURE: Upper Endoscopy with biopsy. PREOPERATIVE INDICATION: The patient is a 84 -year-old female undergoing endoscopy for oropharyngeal dysphagia and history of esophagitis POSTOPERATIVE DIAGNOSES: 1. The patient had acute inflammatory esophagitis involving the distal 10 cm of the esophagus with atypical appearance and desquamation of the esophageal mucosa in the distal 10 cm of the esophagus with oozing, biopsies were obtained to rule out viral inclusions 2. Patient had a 3 cm sliding-type hiatal hernia again with the acute erosive esophagitis and some inflammatory changes of the GE junction from which biopsies were obtained but there was no clear-cut stricture and Patient was too inflamed at this time for any kind of dilation be attempted 3. [id number] gastritis with some hyperemia erythema superficial erosions otherwise normal examination up to the 2nd and 3rd part of the duodenum PROCEDURE PERFORMED BY: Jing Hearn GI NURSE: Nichole SCOPE: Olympus videoendoscope. ASA CLASS: 3. PREOPERATIVE MEDICATIONS: Mac sedation, Dr. Garcias PROCEDURE IN DETAIL: After obtaining an informed consent, the patient was placed on left lateral decubitus position. The patient was then sedated with the above medications. A bite block was placed between her teeth. The endoscope was then passed through the oropharynx, into the esophagus, and through the stomach and pylorus up to the second and third part of the duodenum. The endoscope was then withdrawn. The 2nd and 3rd part of the duodenum and the duodenal bulb appeared to be normal . There was good bile drainage The pre-pyloric area antrum and body of the stomach showed [id number] gastritis with hyperemia erythema and superficial erosions On retroflexion the fundus cardia and angularis were normal. Gastric biopsies were obtained. The endoscope was then withdrawn into the distal esophagus. Patient had a 3 cm sliding-type hiatal hernia with the acute erosive esophagitis at the GE junction but there was no stricture obstruction GE junction biopsies were obtained Patient also had abnormal acute inflammatory esophagitis involving the distal 10 cm of the esophagus with hyperemia erythema oozing and desquamation of the esophageal mucosa Biopsies were obtained to rule out any viral esophagitis. The remaining proximal esophagus and oropharynx were unremarkable The patient tolerated the procedure well without difficulty. COMPLICATIONS : None SPECIMENS: Gastric biopsies Esophageal biopsies DISPOSITION: Transfer back to the floor Stable PLAN: 1. Await for biopsy result 2. Will place pt on Protonix 40 mg bid IV 3. Carafate suspension 1 g p.o. 4 times a day 4. Try nystatin swish and swallow 5 mL p.o. three times a day 5. Try acyclovir suspension 400 mg three times a day 6. Await biopsy results 7. This patient will need to be maintained on these medications upon discharge 8. Outpatient follow up with me in 4-6 weeks 9. Start with clear liquid diet advance to full liquid and then likely maintained on a full liquid or soft mechanical diet for the time being JING HEARN MD Nov 27, 2024 13:27
[2024-11-27] MEDS ORDERED: LABETALOL HCL 20 MG/4 ML VL IV PRN (13:30)
[2024-11-27] MEDS ORDERED: HYDROmorphone HCL 2 MG/ML VL/or syr IV PRN (13:30)
[2024-11-27] MEDS ORDERED: ACETAMINOPHEN IV 1000 MG/100ML (10MG/ML) IV PRN (13:30)
[2024-11-27] MEDS: ONDANSETRON HCL 4 MG/2 ML VIAL IV ONE (13:30)
[2024-11-27] MEDS: SUCRALFATE 1 GM/10 ML ORAL SUSP PO SCH (17:00)
[2024-11-27] MEDS: NYSTATIN (MOUTH-THROAT) 500,000 UNITS/5 ML SUSP MT SCH (17:55)
[2024-11-27] MEDS ORDERED: ACYCLOVIR 200 MG/5 ML SUSP GT SCH (22:00)
[2024-11-27] MEDS: MELATONIN 5 MG TAB PO SCH (22:00)
[2024-11-27] MEDS: ACYCLOVIR 200 MG/5 ML SUSP PO SCH (22:10)
[2024-11-28 01:00] VITALS: BP 145/59; PULSE 85; RESP 17; TEMP 98.2; O2SAT 98
[2024-11-28 05:00] VITALS: BP 152/62; PULSE 90; RESP 16; TEMP 98.2; O2SAT 98
[2024-11-28 09:00] VITALS: BP 171/64; PULSE 84; RESP 16; TEMP 98.1; O2SAT 95
[2024-11-28 13:00] VITALS: BP 167/56; PULSE 77; RESP 16; TEMP 97.4; O2SAT 100
--- NOTE | 2024-11-28 16:24 | DVHPN2 ---
Progress Note Date Seen: Nov 28, 2024 Medical Necessity Reason Pt with a Central, PICC or Fol: No Subjective Patient reports: No new complaints Review of Systems: HEENT:Normal, CVS:Normal, RESPIRATORY:Normal, GI:Normal, :Normal, MSK:Normal, NEURO:Normal Objective vital signs Vital Sign Date Time Temp Pulse Resp B/P (MAP) Pulse Ox O2 Delivery O2 Flow Rate FiO2 11/28/24 13:00 97.4 77 16 167/56 (93) 100 97.4 11/28/24 07:45 Room Air* 0 21 Total Intake and Output 11/27/24 11/27/24 11/28/24 15:00 23:00 07:00 Intake Total 20 ml 120 ml 150 ml Balance 20 ml 120 ml 150 ml medications Current Medications Medications Dose Ordered Sig/Dejah Route Start Time Stop Time Status Last Admin Dose Admin Ondansetron HCl 4 mg Q4HP PRN IV 11/25/24 22:15 Morphine Sulfate 2 mg Q6HPRN PRN IV 11/25/24 22:15 Hydralazine HCl 10 mg Q6HP PRN IV 11/26/24 01:30 11/28/24 08:51 10 MG Pantoprazole Sodium 40 mg BID IV 11/26/24 22:00 11/28/24 08:50 40 MG Labetalol HCl 5 mg [id number] PRN IV 11/27/24 13:30 Sucralfate 1 gm QID@0600,1130,1700,2200 PO 11/27/24 17:00 11/28/24 11:35 1 GM Nystatin 5 ml QID MT 11/27/24 18:00 11/28/24 11:34 5 ML Melatonin 10 mg HS PO 11/27/24 22:00 Acyclovir 400 mg Q8HR PO 11/27/24 22:00 11/27/24 22:10 400 MG Examination: GENERAL:Normal, HEENT:Normal, NECK:Normal, LUNGS:Normal, CVS:Normal, ABDOMEN:Normal, MSK:Normal, SKIN:Normal, NEURO:Normal, :Normal laboratory and microbiology Laboratory Tests 11/26/24 07:59 11/25/24 16:59 Test 11/26/24 07:59 Range/Units Serum Glucose 92 74-106 mg/dL Problem List/Assessment/Plan Problem List/Assessment/Plan #1 dysphagia ? viral ?fungal esophagitis: await biopsy, cont meds #2 Diabetes mellitus: ssi #3 Hypertension; resume meds #4 Coronary artery disease, status post coronary artery bypass graft. #5 Peripheral neuropathy. #6 Urinary tract infection: culture, rocephin #7 Obesity. #8 Anxiety/depression. #9 Hyperlipidemia. advance care planning- full code- time spent 21 mins Plan discussed with: Patient My Orders My Orders Orders - MAURA NICOLE MD Procedure Category Date Status Time Metoprolol Xl PHA 11/29/24 Verified Succinate (Toprol Xl) 10:00 Metoprolol Xl PHA 11/28/24 Verified Succinate (Toprol Xl) 16:30 Duloxetine Hcl PHA 11/29/24 Verified Capsule (Cymbalta 10:00 Spironolactone PHA 11/28/24 Verified (Aldactone) 16:30 Spironolactone PHA 11/29/24 Verified (Aldactone) 10:00 Atorvastatin (Lipitor) PHA 11/28/24 Verified 22:00 Urine Bacterial ROSALIA 11/28/24 Verified Culture 16:18 Pt Request For Service PT 11/28/24 Verified 16:18 Basic Metabolic Panel LAB 11/29/24 Verified 06:00 Complete Blood Count LAB 11/29/24 Verified 06:00 Dietary Evaluation Review Comments: 1. Full liquid as tolerated 2. Advance diet likely to CCHO-60 with a renal consideration when medically feasible. 3. Good blood sugar management. No supplements for her heel wound. Expected Outcomes/Goals: Gradual wt loss Date of Service: Nov 28, 2024 Billing Provider: MAURA NICOLE MD Common Visit Codes: [id number] INP/OBS CARE(HIGH) Secondary Visit Codes: [id number] CARE PLAN 30 MINUTES MAURA NICOLE MD Nov 28, 2024 16:24
[2024-11-28 16:46] VITALS: BP 151/66; PULSE 80; RESP 16; TEMP 97.7; O2SAT 95
[2024-11-28] MEDS: cefTRIAXone 1GM/50ML D5W 50 ML IV ONE (17:10)
[2024-11-28] MEDS: METOPROLOL SUCCINATE XL 50 MG TAB PO ONE (17:12)
[2024-11-28] MEDS: SPIRONOLACTONE 25 MG TAB PO ONE (17:12)
--- NOTE | 2024-11-28 19:34 | DVHPN2 ---
Progress Note - Dictate Date Seen: Nov 28, 2024 Medical Necessity Reason Pt with a Central, PICC or Fol: No Subjective No new complaints Full liquid diet vital signs Vital Sign Date Time Temp Pulse Resp B/P (MAP) Pulse Ox O2 Delivery O2 Flow Rate FiO2 11/28/24 17:12 80 151/65 11/28/24 16:46 97.7 16 95 97.7 11/28/24 07:45 Room Air* 0 21 Total Intake and Output 11/27/24 11/27/24 11/28/24 15:00 23:00 07:00 Intake Total 20 ml 120 ml 150 ml Balance 20 ml 120 ml 150 ml medications Current Medications Medications Dose Ordered Sig/Dejah Route Start Time Stop Time Status Last Admin Dose Admin Ondansetron HCl 4 mg Q4HP PRN IV 11/25/24 22:15 Morphine Sulfate 2 mg Q6HPRN PRN IV 11/25/24 22:15 Hydralazine HCl 10 mg Q6HP PRN IV 11/26/24 01:30 11/28/24 08:51 10 MG Pantoprazole Sodium 40 mg BID IV 11/26/24 22:00 11/28/24 08:50 40 MG Sucralfate 1 gm QID@0600,1130,1700,2200 PO 11/27/24 17:00 11/28/24 17:12 1 GM Nystatin 5 ml QID MT 11/27/24 18:00 11/28/24 17:12 5 ML Melatonin 10 mg HS PO 11/27/24 22:00 Acyclovir 400 mg Q8HR PO 11/27/24 22:00 11/28/24 17:14 400 MG Metoprolol Succinate 25 mg DAILY PO 11/29/24 10:00 Duloxetine HCl 60 mg DAILY PO 11/29/24 10:00 Spironolactone 25 mg DAILY PO 11/29/24 10:00 Atorvastatin Calcium 20 mg HS PO 11/28/24 22:00 Ceftriaxone Sodium 50 ml @ 100 mls/hr DAILY@09 IV 11/29/24 09:00 objective Gen: 84-year-old female sleeping in no distress Skin: Warm, dry, normal color and texture, no rash. HEENT: Normocephalic atraumatic, mucous membranes moist and pink. Neck: Cervical and supraclavicular nodes normal without enlargement, trachea is midline, thyroid gland is normal without masses. Pulmonary: Clear to auscultation and percussion bilaterally. Cardiac: Regular rate and rhythm. No murmur Abdomen: Soft, nontender, nondistended, bowel sounds present all 4 quadrants, no guarding, no rigidity, no organomegaly. Extremities: No cyanosis, clubbing, no edema Neuro: Cranial nerves II through XII grossly intact, normal affect and speech, no focal motor deficits. laboratory and microbiology Laboratory Tests 11/26/24 07:59 11/25/24 16:59 Test 11/26/24 07:59 Range/Units Serum Glucose 92 74-106 mg/dL Problems(with codes): (1) Hiatal hernia with GERD and esophagitis (2) Dysphagia (3) Esophageal abnormality (4) Choked on food Prognosis PLAN Continue full continue full liquid diet Continue Protonix Carafate acyclovir nystatin Patient will need to continue these medications upon discharge Await final biopsy results Outpatient follow up with me upon discharge in 2 weeks for ongoing management Dietary Evaluation Review Comments: 1. Full liquid as tolerated 2. Advance diet likely to CCHO-60 with a renal consideration when medically feasible. 3. Good blood sugar management. No supplements for her heel wound. Expected Outcomes/Goals: Gradual wt loss Plan discussed with: Other JING GREENE MD Nov 28, 2024 19:34
[2024-11-28 21:00] VITALS: BP 152/55; PULSE 66; RESP 18; TEMP 98.2; O2SAT 97
[2024-11-28] MEDS: ATORVASTATIN 20 MG TAB PO SCH (21:54)
[2024-11-29] VITALS (8 sets, daily range): BP systolic 64–173; BP diastolic 59–80; PULSE 57–78; RESP 16–18; TEMP 97.1–98.3; O2SAT 95–100
[2024-11-29 06:35] LABS: Basophils # (auto) 0 10 ^3/uL (0-0.2); Basophils % (auto) 0.4 % (0.0-2.0); Eosinophils # (auto) 0.1 10 ^3/uL (0-0.8); Eosinophils % (auto) 0.9 % (0.0-7.0); Hematocrit 40.7 % (36.0-46.0); Hemoglobin 13.3 g/dL (12.2-16.2); Lymphocytes # (auto) 1.2 10 ^3/uL (0.4-5.4); Lymphocytes % (auto) 16.4 % (10.0-50.0); Mean Corpuscular Hemoglobin 29.4 pg (28.0-32.0); Mean Corpuscular Hgb Conc. 32.8 g/dL (32.0-36.0); Mean Corpuscular Volume 89.9 fL (80.0-100.0); Monocytes # (auto) 0.4 10 ^3/uL (0-1.3); Monocytes % (auto) 6.1 % (0.0-12.0); Neutrophils # (auto) 5.5 10 ^3/uL (1.6-8.6); Neutrophils % (auto) 76.2 % (37.0-80.0); Platelet Count (auto) 266 10^3/uL (140-450); Red Blood Cells 4.53 10^6/uL (4.0-5.20); Red Cell Distribution Width 15.2 % (11.8-14.3); White Blood Cell 7.3 10^3/uL (4.4-10.8)
[2024-11-29 06:57] LABS: Anion Gap 12 (5-15); Potassium 3.7 mmol/L (3.5-5.1); Sodium 143 mmol/L (136-145)
[2024-11-29 07:03] LABS: BUN/Creatinine Ratio 16.2 (10.0-20.0); Blood Urea Nitrogen 18 mg/dL (9-23)
[2024-11-29 07:07] LABS: Carbon Dioxide 18 mmol/L (20-31); Chloride 113 mmol/L (98-107); Glucose 123 mg/dL (74-106)
[2024-11-29] MEDS: cefTRIAXone 1GM/50ML D5W 50 ML IV SCH (09:36)
[2024-11-29] MEDS: DULoxetine HCL 30 MG CAP PO SCH (09:38)
[2024-11-29] MEDS: SPIRONOLACTONE 25 MG TAB PO SCH (09:39)
[2024-11-29] MEDS: METOPROLOL SUCCINATE XL 50 MG TAB PO SCH (09:42)
--- NOTE | 2024-11-29 11:18 | DVHPN2 ---
Reviewed: Care Plan, H&P, Labs, Medications, Previous Orders, Radiology Changes from previous H/P or p: No Changes Objective Vitals Vital Signs Date Time Temp Pulse Resp B/P (MAP) Pulse Ox O2 Delivery O2 Flow Rate FiO2 11/29/24 09:42 78 167/59 11/29/24 09:00 98.3 17 98 98.3 11/28/24 20:00 Room Air* 0 21 Intake/Output Intake and Output 11/29/24 07:00 Intake Total 1160 ml Balance 1160 ml Intake Oral 1110 ml IV Total 50 ml # Voids 5 Medications Current Medications Medications Dose Ordered Sig/Dejah Route Start Time Stop Time Status Last Admin Dose Admin Ondansetron HCl 4 mg Q4HP PRN IV 11/25/24 22:15 Morphine Sulfate 2 mg Q6HPRN PRN IV 11/25/24 22:15 Hydralazine HCl 10 mg Q6HP PRN IV 11/26/24 01:30 11/28/24 08:51 10 MG Pantoprazole Sodium 40 mg BID IV 11/26/24 22:00 11/29/24 09:37 40 MG Sucralfate 1 gm QID@0600,1130,1700,2200 PO 11/27/24 17:00 11/29/24 05:21 1 GM Nystatin 5 ml QID MT 11/27/24 18:00 11/29/24 05:21 5 ML Melatonin 10 mg HS PO 11/27/24 22:00 11/28/24 21:34 10 MG Acyclovir 400 mg Q8HR PO 11/27/24 22:00 11/29/24 05:22 400 MG Metoprolol Succinate 25 mg DAILY PO 11/29/24 10:00 11/29/24 09:42 25 MG Duloxetine HCl 60 mg DAILY PO 11/29/24 10:00 11/29/24 09:38 60 MG Spironolactone 25 mg DAILY PO 11/29/24 10:00 11/29/24 09:39 25 MG Atorvastatin Calcium 20 mg HS PO 11/28/24 22:00 11/28/24 21:54 20 MG Ceftriaxone Sodium 50 ml @ 100 mls/hr DAILY@09 IV 11/29/24 09:00 11/29/24 09:36 100 MLS/HR Laboratory Results Laboratory Tests 11/29/24 06:04 Chemistry Test 11/29/24 06:04 Calcium Level 10.0 mg/dL (8.7-10.4) Urinalysis Test 11/27/24 03:40 Urine Color Light-yellow (Yellow) Urine Clarity Turbid (Clear) H Urine pH 5.5 (5.0-9.0) Urine Specific [place] 1.019 (1.001-1.035) Urine Protein Trace (Negative) H Urine Ketones 2+ (Negative) H Urine Blood 2+ /uL (Negative) H Urine Nitrite Negative (Negative) Urine Bilirubin Negative (Negative) Urine Urobilinogen Normal mg/dL (Negative) Urine Leukocyte Esterase 1+ /uL (Negative) Urine RBC 218 /hpf (0 - 4) Urine Microscopic WBC 33 /HPF (0-5) H Urine Squamous Epithelial Cells Few /hpf (<5) Urine Bacteria None seen /hpf (None Seen) Urine Hyaline Casts Few /lpf (0 - 2) Urine Yeast (Budding) Occasional /hpf (None Urine Glucose Normal mg/dL (Normal) Labs and/or images reviewed: Labs reviewed by me, Image(s) reviewed by me Assessment/Plan Assessment/Plan #1 dysphagia status post EGD by Dr. Jason Hearn with the findings of acute inflammatory esophagitis, gastritis, biopsy result pending possible fungal etiology placed on acyclovir pantoprazole Carafate #2 Diabetes mellitus: ssi #3 Hypertension; resume meds #4 Coronary artery disease, status post coronary artery bypass graft. #5 Peripheral neuropathy. #6 Urinary tract infection: culture, rocephin #7 Obesity. #8 Anxiety/depression. #9 Hyperlipidemia. #10.History of uterine cancer status post hysterectomy [address] Berry Lives in senior apartment Plan discussed with: Patient Date of Service: Nov 29, 2024 Billing Provider: AMIE BONNER MD Common Visit Codes: [id number] INP/OBS CARE(HIGH) AMIE BONNER MD Nov 29, 2024 11:18
[2024-11-29] MEDS: ONDANSETRON HCL 4 MG/2 ML VIAL IV PRN (21:56)
[2024-11-29] MEDS: ALPRAZolam 0.5 MG TAB PO PRN (22:02)
[2024-11-30 01:00] VITALS: BP 104/39; PULSE 77; RESP 18; TEMP 98.1; O2SAT 94
[2024-11-30 05:00] VITALS: BP 111/40; PULSE 80; RESP 18; TEMP 98.4; O2SAT 95
[2024-11-30 08:00] VITALS: PULSE 76; RESP 18; O2SAT 100
[2024-11-30 09:00] VITALS: BP 114/63; PULSE 76; RESP 22; TEMP 98; O2SAT 95
--- NOTE | 2024-11-30 11:21 | DVHPN2 ---
Reviewed: Care Plan, H&P, Labs, Medications, Previous Orders, Radiology Changes from previous H/P or p: No Changes Objective Vitals Vital Signs Date Time Temp Pulse Resp B/P (MAP) Pulse Ox O2 Delivery O2 Flow Rate FiO2 11/30/24 09:56 98 139/69 11/30/24 09:00 98.0 22 95 98.0 11/30/24 08:00 Room Air* 0 21 Intake/Output Intake and Output 11/30/24 07:00 Intake Total 450 ml Output Total 1000 ml Balance -550 ml Intake Oral 400 ml IV Total 50 ml Output Urine Total 1000 ml # Voids 2 # Bowel Movements 1 Medications Current Medications Medications Dose Ordered Sig/Dejah Route Start Time Stop Time Status Last Admin Dose Admin Ondansetron HCl 4 mg Q4HP PRN IV 11/25/24 22:15 11/29/24 21:56 4 MG Morphine Sulfate 2 mg Q6HPRN PRN IV 11/25/24 22:15 Hydralazine HCl 10 mg Q6HP PRN IV 11/26/24 01:30 11/29/24 21:00 10 MG Pantoprazole Sodium 40 mg BID IV 11/26/24 22:00 11/30/24 09:56 40 MG Sucralfate 1 gm QID@0600,1130,1700,2200 PO 11/27/24 17:00 11/30/24 09:54 1 GM Nystatin 5 ml QID MT 11/27/24 18:00 11/30/24 05:35 5 ML Melatonin 10 mg HS PO 11/27/24 22:00 11/29/24 20:59 10 MG Acyclovir 400 mg Q8HR PO 11/27/24 22:00 11/30/24 05:35 400 MG Metoprolol Succinate 25 mg DAILY PO 11/29/24 10:00 11/30/24 09:56 25 MG Duloxetine HCl 60 mg DAILY PO 11/29/24 10:00 11/30/24 09:54 60 MG Spironolactone 25 mg DAILY PO 11/29/24 10:00 11/30/24 09:54 25 MG Atorvastatin Calcium 20 mg HS PO 11/28/24 22:00 11/29/24 20:59 20 MG Ceftriaxone Sodium 50 ml @ 100 mls/hr DAILY@09 IV 11/29/24 09:00 11/30/24 09:54 100 MLS/HR Alprazolam 1 mg Q8HPRN PRN PO 11/29/24 11:30 11/29/24 22:02 1 MG Laboratory Results Laboratory Tests 11/29/24 06:04 Urinalysis Test 11/27/24 03:40 Urine Color Light-yellow (Yellow) Urine Clarity Turbid (Clear) H Urine pH 5.5 (5.0-9.0) Urine Specific [place] 1.019 (1.001-1.035) Urine Protein Trace (Negative) H Urine Ketones 2+ (Negative) H Urine Blood 2+ /uL (Negative) H Urine Nitrite Negative (Negative) Urine Bilirubin Negative (Negative) Urine Urobilinogen Normal mg/dL (Negative) Urine Leukocyte Esterase 1+ /uL (Negative) Urine RBC 218 /hpf (0 - 4) Urine Microscopic WBC 33 /HPF (0-5) H Urine Squamous Epithelial Cells Few /hpf (<5) Urine Bacteria None seen /hpf (None Seen) Urine Hyaline Casts Few /lpf (0 - 2) Urine Yeast (Budding) Occasional /hpf (None Urine Glucose Normal mg/dL (Normal) Microbiology Microbiology Date/Time Source Procedure Growth Status 11/28/24 11:33 Voided Urine Urine Culture - Preliminary Resulted Labs and/or images reviewed: Labs reviewed by me, Image(s) reviewed by me Assessment/Plan Assessment/Plan #1 dysphagia status post EGD by Dr. Jason Hearn with the findings of acute inflammatory esophagitis, gastritis, biopsy result pending possible fungal etiology placed on acyclovir pantoprazole Carafate #2 Diabetes mellitus: ssi #3 Hypertension; resume meds #4 Coronary artery disease, status post coronary artery bypass graft. #5 Peripheral neuropathy. #6 Urinary tract infection: culture, rocephin #7 Obesity. #8 Anxiety/depression. #9 Hyperlipidemia. #10.History of uterine cancer status post hysterectomy [address] Berry Lives in senior apartment Plan discussed with: Patient My Orders Orders - AMIE BONNER MD Procedure Category Date Status Time Communication Order ORDERS 11/29/24 Transmitted 11:15 Alprazolam Tablet PHA 11/29/24 In Process (Xanax Tablet) 11:30 Date of Service: Nov 30, 2024 Billing Provider: AMIE BONNER MD Common Visit Codes: [id number] INP/OBS CARE(HIGH) AMIE BONNER MD Nov 30, 2024 11:21
[2024-11-30] MEDS ORDERED: AZIT500T66 PO (11:25)
[2024-11-30] MEDS ORDERED: PANT40T PO (11:25)
[2024-11-30] MEDS ORDERED: ACYC400T16 PO (11:25)
[2024-11-30] MEDS ORDERED: SUCR1TAB31 PO (11:25)
--- NOTE | 2024-11-30 11:31 | DVHDS2 ---
Discharge Summary Date of Admission Nov 25, 2024 at 22:06 Date of Discharge: Nov 30, 2024 Admitting Diagnosis Dysphagia Wounds: EGD Labs/Diagnostic Data: Laboratory Results Test 11/29/24 06:04 11/27/24 05:02 11/27/24 03:40 11/25/24 16:59 White Blood Count 7.3 10^3/uL (4.4-10.8) Red Blood Count 4.53 10^6/uL (4.0-5.20) Hemoglobin 13.3 g/dL (12.2-16.2) Hematocrit 40.7 % (36.0-46.0) Mean Corpuscular Volume 89.9 fL (80.0-100.0) Mean Corpuscular Hemoglobin 29.4 pg (28.0-32.0) Mean Corpuscular Hemoglobin Concent 32.8 g/dL (32.0-36.0) Red Cell Distribution Width 15.2 % (11.8-14.3) Platelet Count 266 10^3/uL (140-450) Mean Platelet Volume 7.3 fL (6.9-10.8) Neutrophils (%) (Auto) 76.2 % (37.0-80.0) Lymphocytes (%) (Auto) 16.4 % (10.0-50.0) Monocytes (%) (Auto) 6.1 % (0.0-12.0) Eosinophils (%) (Auto) 0.9 % (0.0-7.0) Basophils (%) (Auto) 0.4 % (0.0-2.0) Neutrophils # (Auto) 5.5 10 ^3/uL (1.6-8.6) Lymphocytes # (Auto) 1.2 10 ^3/uL (0.4-5.4) Monocytes # (Auto) 0.4 10 ^3/uL (0-1.3) Eosinophils # (Auto) 0.1 10 ^3/uL (0-0.8) Basophils # (Auto) 0 10 ^3/uL (0-0.2) Nucleated Red Blood Cells 0.0 % Sodium Level 143 mmol/L (136-145) Potassium Level 3.7 mmol/L (3.5-5.1) Chloride Level 113 mmol/L (98-107) Carbon Dioxide Level 18 mmol/L (20-31) Anion Gap 12 (5-15) Blood Urea Nitrogen 18 mg/dL (9-23) Creatinine 1.11 mg/dL (0.550-1.02) Glomerular Filtration Rate Calc 49 mL/min (>90) BUN/Creatinine Ratio 16.2 (10.0-20.0) Serum Glucose 123 mg/dL (74-106) Calcium Level 10.0 mg/dL (8.7-10.4) Prothrombin Time 11.3 sec (9.3-11.8) Prothrombin Time INR 1.07 (0.9-1.15) Activated Partial Thromboplast Time 31.0 SEC (24.5-34.5) Urine Color Light-yellow (Yellow) Urine Clarity Turbid (Clear) Urine pH 5.5 (5.0-9.0) Urine Specific [place] 1.019 (1.001-1.035) Urine Protein Trace (Negative) Urine Ketones 2+ (Negative) Urine Blood 2+ /uL (Negative) Urine Nitrite Negative (Negative) Urine Bilirubin Negative (Negative) Urine Urobilinogen Normal mg/dL (Negative) Urine Leukocyte Esterase 1+ /uL (Negative) Urine RBC 218 /hpf (0 - 4) Urine Microscopic WBC 33 /HPF (0-5) Urine Squamous Epithelial Cells Few /hpf (<5) Urine Bacteria None seen /hpf (None Seen) Urine Hyaline Casts Few /lpf (0 - 2) Urine Yeast (Budding) Occasional /hpf (None Urine Glucose Normal mg/dL (Normal) Troponin I High Sensitivity 10 ng/L (</=34) B-Type Natriuretic Peptide 144.55 pg/mL (0-100) Other Laboratory Tests 11/29/24 06:04 Brief Hx & Hospital Course: Came in for dysphagia underwent EGD by Dr. Jason Hearn with the findings of acute inflammatory esophagitis gastritis possible fungal etiology placed on acyclovir pantoprazole and Carafate biopsy result pending comorbid conditions diabetes hypertension anxiety hyperlipidemia treated appropriately. Possible aspiration pneumonia treated with Rocephin IV and azithromycin IV. Patient lives in a senior apartment. Being discharged home on p.o. azithromycin. Medications for acyclovir pantoprazole Carafate transmitted to pharmacy. She will follow up with GI Dr. Jason Hearn for biopsy result in 10 days At The time of discharge patient is able to tolerate regular diet. Consults/Reason for consult GI Dr. Jason Hearn Operations or Procedures EGD Condition at Discharge: Fair Final Diagnosis/Problems List #1 dysphagia status post EGD by Dr. Jason Hearn with the findings of acute inflammatory esophagitis, gastritis, biopsy result pending possible fungal etiology placed on acyclovir pantoprazole Carafate #2 Diabetes mellitus: ssi #3 Hypertension; resume meds #4 Coronary artery disease, status post coronary artery bypass graft. #5 Peripheral neuropathy. #6 Urinary tract infection: culture, rocephin #7 Obesity. #8 Anxiety/depression. #9 Hyperlipidemia. #10.History of uterine cancer status post hysterectomy 60 years ago Discharge Disposition: Home Discharge Instruct/Medications Diet: Cardiac 2g Na,low cholest Activity: No Restrictions, As Tolerated Follow Up/Referral: Follow up with the primary Dr in one week Follow up with the GI Dr. Jason Hearn in 10 days for the biopsy result Resume all your Previous home medications Medications: Pantoprazole Sucralfate Azithromycin Acyclovir Transmitted to pharmacy 39 (Time Taken for discharge summary 39 minutes) Discharge Statement: "Patient was advised to return to the ER or call 911 if any headaches, dizziness, shortness of breath, chest pain, abdominal pain, bleeding, fevers, or worsening of medical condition. Patient was counseled about treatment plan, medications, possible side effects, patientverbalized understanding. All questions were answered to the best of my ability. This discharge took greater then 30 minutes in planning, reviewing documentation, counseling the patient, and discussing with other team members." ASSESSMENT ASSESSMENT Hospital Course Improved Assessment #1 dysphagia status post EGD by Dr. Jason Hearn with the findings of acute inflammatory esophagitis, gastritis, biopsy result pending possible fungal etiology placed on acyclovir pantoprazole Carafate #2 Diabetes mellitus: ssi #3 Hypertension; resume meds #4 Coronary artery disease, status post coronary artery bypass graft. #5 Peripheral neuropathy. #6 Urinary tract infection: culture, rocephin #7 Obesity. #8 Anxiety/depression. #9 Hyperlipidemia. #10.History of uterine cancer status post hysterectomy 60 years ago Date of Service: Nov 30, 2024 Billing Provider: AMIE BONNER MD Common Visit Codes: 58814-XLY/OBS DISCH DAY >30min AMIE BONNER MD Nov 30, 2024 11:31
[2024-11-30 13:00] VITALS: BP 135/57; PULSE 74; RESP 24; TEMP 97.4; O2SAT 96
[2024-11-30 14:05] VITALS: BP 139/69; PULSE 98; TEMP 36.3
--- NOTE | 2024-11-30 15:22 | DVHPN2 ---
Progress Note - Dictate Date Seen: Nov 30, 2024 Medical Necessity Reason Pt with a Central, PICC or Fol: No Subjective No new complaints Tolerating Full liquid diet vital signs Vital Sign Date Time Temp Pulse Resp B/P (MAP) Pulse Ox O2 Delivery O2 Flow Rate FiO2 11/30/24 14:05 36.3 98 11/30/24 13:00 24 135/57 (83) 96 11/30/24 08:00 Room Air* 0 21 Total Intake and Output 11/29/24 11/29/24 11/30/24 15:00 23:00 07:00 Intake Total 50 ml 400 ml 0 ml Output Total 1000 ml Balance 50 ml -600 ml 0 ml medications Current Medications Medications Dose Ordered Sig/Dejah Route Start Time Stop Time Status Last Admin Dose Admin Ondansetron HCl 4 mg Q4HP PRN IV 11/25/24 22:15 11/29/24 21:56 4 MG Morphine Sulfate 2 mg Q6HPRN PRN IV 11/25/24 22:15 Hydralazine HCl 10 mg Q6HP PRN IV 11/26/24 01:30 11/29/24 21:00 10 MG Pantoprazole Sodium 40 mg BID IV 11/26/24 22:00 11/30/24 09:56 40 MG Sucralfate 1 gm QID@0600,1130,1700,2200 PO 11/27/24 17:00 11/30/24 09:54 1 GM Nystatin 5 ml QID MT 11/27/24 18:00 11/30/24 12:46 5 ML Melatonin 10 mg HS PO 11/27/24 22:00 11/29/24 20:59 10 MG Acyclovir 400 mg Q8HR PO 11/27/24 22:00 11/30/24 05:35 400 MG Metoprolol Succinate 25 mg DAILY PO 11/29/24 10:00 11/30/24 09:56 25 MG Duloxetine HCl 60 mg DAILY PO 11/29/24 10:00 11/30/24 09:54 60 MG Spironolactone 25 mg DAILY PO 11/29/24 10:00 11/30/24 09:54 25 MG Atorvastatin Calcium 20 mg HS PO 11/28/24 22:00 11/29/24 20:59 20 MG Ceftriaxone Sodium 50 ml @ 100 mls/hr DAILY@09 IV 11/29/24 09:00 11/30/24 09:54 100 MLS/HR Alprazolam 1 mg Q8HPRN PRN PO 11/29/24 11:30 11/29/24 22:02 1 MG objective Gen: 84-year-old female sleeping in no distress Skin: Warm, dry, normal color and texture, no rash. HEENT: Normocephalic atraumatic, mucous membranes moist and pink. Neck: Cervical and supraclavicular nodes normal without enlargement, trachea is midline, thyroid gland is normal without masses. Pulmonary: Clear to auscultation and percussion bilaterally. Cardiac: Regular rate and rhythm. No murmur Abdomen: Soft, nontender, nondistended, bowel sounds present all 4 quadrants, no guarding, no rigidity, no organomegaly. Extremities: No cyanosis, clubbing, no edema Neuro: Cranial nerves II through XII grossly intact, normal affect and speech, no focal motor deficits. laboratory and microbiology Laboratory Tests 11/29/24 06:04 Test 11/29/24 06:04 Range/Units Serum Glucose 123 H 74-106 mg/dL Problems(with codes): (1) Hiatal hernia with GERD and esophagitis (2) Choked on food (3) Esophageal abnormality (4) Dysphagia Prognosis Plan Okay to advance to pureed diet Protonix 40 mg p.o. twice a day Carafate 1 g 4 times a day Nystatin swish and swallow 5 mL p.o. three times a day Acyclovir 400 mg suspension q.6 hours for five days Await final pathology results Outpatient follow up with me in 1-2 weeks to review results and discuss further management DC aspirin NSAIDs smoking alcohol Dietary Evaluation Review Comments: 1. Full liquid as tolerated 2. Advance diet likely to CCHO-60 with a renal consideration when medically feasible. 3. Good blood sugar management. No supplements for her heel wound. Expected Outcomes/Goals: Gradual wt loss Plan discussed with: Patient, Other JING GREENE MD Nov 30, 2024 15:22
== END 2024-11-30 14:30 | disposition home or self-care (01) | DRG 380 ==
LOC: ER 15:22 → WEST WING 18:51 → ER 18:51 → OVERFLOW 22:06 → WEST WING 23:39
PROVIDERS: ADMIT Family Medicine; ATTEND Family Medicine
PROC: 0DB48ZX Excision of Esophagogastric Junction, Via Natural or Artificial Opening Endoscopic, Diagnostic (ICD-10-PCS; 2024-11-27)
PROC: 0DB68ZX Excision of Stomach, Via Natural or Artificial Opening Endoscopic, Diagnostic (ICD-10-PCS; principal; 2024-11-27 12:51)
DX: K22.10 Ulcer of esophagus without bleeding (principal); J69.0 Pneumonitis due to inhalation of food and vomit; I13.0 Hypertensive heart and chronic kidney disease with heart failure and stage 1 through stage 4 chronic kidney disease, or unspecified chronic kidney disease; N39.0 Urinary tract infection, site not specified; K22.2 Esophageal obstruction; K29.70 Gastritis, unspecified, without bleeding; K29.80 Duodenitis without bleeding; K44.9 Diaphragmatic hernia without obstruction or gangrene; E78.5 Hyperlipidemia, unspecified; E11.40 Type 2 diabetes mellitus with diabetic neuropathy, unspecified; E11.22 Type 2 diabetes mellitus with diabetic chronic kidney disease; N18.9 Chronic kidney disease, unspecified; I25.10 Atherosclerotic heart disease of native coronary artery without angina pectoris; E66.9 Obesity, unspecified; K21.00 Gastro-esophageal reflux disease with esophagitis, without bleeding; R13.12 Dysphagia, oropharyngeal phase; F32.A Depression, unspecified; J44.9 Chronic obstructive pulmonary disease, unspecified; F41.9 Anxiety disorder, unspecified; I50.9 Heart failure, unspecified; Z79.82 Long term (current) use of aspirin; Z95.1 Presence of aortocoronary bypass graft; Z79.891 Long term (current) use of opiate analgesic; Z79.899 Other long term (current) drug therapy; Z79.84 Long term (current) use of oral hypoglycemic drugs; Z90.49 Acquired absence of other specified parts of digestive tract; Z86.73 Personal history of transient ischemic attack (TIA), and cerebral infarction without residual deficits; Z83.3 Family history of diabetes mellitus; Z85.42 Personal history of malignant neoplasm of other parts of uterus; Z90.710 Acquired absence of both cervix and uterus; Z87.442 Personal history of urinary calculi; Z68.22 Body mass index [BMI] 22.0-22.9, adult
CPT/HCPCS: 36415; 71045; 80048; 81001; 83880; 84484; 85025; 85610; 85730; 87086; 93005; 97163; G0378; J0131; J0133; J2405; J2470

== ENCOUNTER 2025-04-21 14:20 | Inpatient (IN) | payer OTHER, MEDICAID ==
[~2025-04-21] VITALS: Ht 161.3 cm; Wt 84.7 kg
[2025-04-21] MEDS: ACCU-CHEK COMFORT CURVE STRIP VI SCH (00:37)
[2025-04-21] MEDS: InsuLIN REG 1unit/0.01ml Soln (100units/ml) SC SCH (00:37)
[~2025-04-21 14:20] MED LIST changes: +ACYC400T16 PO; +AZIT500T66 PO; +MIRT1TAB38 PO; +PANT40T PO; +SPIR50TA5 PO; +SUCR1TAB PO; +SUCR1TAB31 PO
--- NOTE | 2025-04-21 15:00 | ED.PDOC ---
SOB-HPI HPI Comments 84 y/o F, BIBA, with PMHx of COPD, CHF, DE, CAD, and AFib presents to the ED for CC of shortness of breath. EMS reports, patient is coming from home where she c/o shortness of breath with associated substernal chest pain onset last night (04/20/25). Patient relays, shortness of breath has worsened and despite using continuous O2 at home experiences no relief. Patient endorses, additional symptoms of insomnia. Patient denies cough, fever, sore-throat, numbness, or tingling. No other associated symptoms, modifiers, recent injuries or sick contacts present at this time. Chief Complaint: Shortness of Breath Time Seen by MD: 14:30 Primary Care Provider: ABEL Hernadez notes: Nurses Notes, Plastics Scientist Notes, Medications, Allergies Information Source: Patient, Emergency Med Personnel Mode of Arrival: EMS Severity: Moderate Timing: Hours Duration: Since onset Context: At Rest PE Risk Factors: None History of: COPD, CHF Prehospital treatment: None Modifying Factors: Nothing Associated Signs and Symptoms: Chest Pain Radiation: No Radiation Location: Substernal Past Medical History PAST MEDICAL HISTORY: AFIB, Cancer, CHF, CKF, COPD, CVA, High Lipids, Kidney Stones, DE Surgical History: Appendectomy, CABG, Cholecystectomy, Hysterectomy, Tonsillectomy CAFETERIA SERVER History: No Pertinent CAFETERIA SERVER History Family History Family History: Reviewed,noncontributory to illness, No family hx of Cancer, No family hx of DM, No family hx of Heart heath, No family hx of HTN, No family hx ofKidney heath, No family hx of Liver heath, No family hx of Lung heath, No family hx of Stroke Social History Smoker: Non-Smoker Alcohol: Denies ETOH Use Drugs: Denies Drug Use Lives In: Home Constitutional: denies: chills, diaphoresis, fatigue, fever, malaise, sweats, weakness, others EENTM: denies: blurred vision, double vision, ear bleeding, ear discharge, ear drainage, ear pain, ear ringing, eye pain, eye redness, hearing loss, mouth pain, mouth swelling, nasal discharge, nose bleeding, nose congestion, nose pain, photophobia, tearing, throat pain, throat swelling, voice changes, others Respiratory: reports: shortness of breath; denies: cough, hemoptysis, orthopnea, SOB at rest, SOB with excertion, stridor, wheezing, others Cardiovascular: reports: chest pain; denies: dizzy spells, diaphoresis, Dyspnea on exertion, edema, irregular heart beat, left arm pain, lightheadedness, palpitations, PND, syncope, others Gastrointestinal: denies: abdomen distended, abdominal pain, blood streaked bowels, constipated, diarrhea, dysphagia, difficulty swallowing, hematemesis, melena, nausea, poor appetite, poor fluid intake, rectal bleeding, rectal pain, vomiting, others Genitourinary: denies: abnormal vagina bleeding, burning, dyspareunia, dysuria, flank pain, frequency, hematuria, incontinence, pain, , vagina discharge, urgency, others Neurological: denies: dizziness, fainting, headache, left sided numbness, left sided weakness, numbness, paresthesia, pre-existing deficit, right sided numbness, right sided weakness, seizure, speech problems, tingling, tremors, weakness, others Musculoskeletal: denies: back pain, gout, joint pain, joint swelling, muscle pain, muscle stiffness, neck pain, others Integumetry: denies: bruises, change in color, change in hair/nails, dryness, laceration, lesions, lumps, rash, wounds, others Allergic/Immunocompromised: denies: Difficulty Healing, Frequent Infections, Hives, Itching, others Hematologic/Lymphatic: denies: anemia, blood clots, easy bleeding, easy bruising, swollen glands, others Endocrine: denies: excessive hunger, excessive sweating, excessive thirst, excessive urination, flushing, intolerance to cold, intolerance to heat, unexplained weight gain, unexplained weight loss, others Psychiatric: denies: anxiety, bipolar disorder, depression, hopeless, panic disorder, schizophrenia, sleepless, suicidal, others All Other Systems: Reviewed and Negative Physical Exam General Appearance: No Apparent Distress, Normal HEENT: Normal ENT Inspection, Pharynx Normal Neck: Full Range of Motion, Non-Tender, Normal, Normal Inspection Respiratory: Chest Non-Tender, Lungs Clear, No Accessory Muscle Use, No Respiratory Distress, Normal Breath Sounds Cardiovascular: No Edema, No Murmur, No Gallop, Normal Peripheral Pulses, Regular Rate/Rhythm Breast Exam: Deferred Gastrointestinal: No Organomegaly, Non Tender, No Pulsatile Mass, Normal Bowel Sounds, Soft Genitalia: Deferred Pelvic: Deferred Rectal: Deferred Extremities: No calf tenderness, Normal capillary refill, Normal inspection, Normal range of motion, Non-tender, No pedal edema Musculoskeletal : Location: Left Extremity Location: Leg Apperance: Swelling, Other (erythema, wound weeping) Neurologic: Alert, order desk caller II-XII nml as Tested, No Motor Deficits, Normal Affect, Normal Mood, No Sensory Deficits Cerebellar Function: Normal Reflexes: Normal Skin: Dry, Normal Color, Warm Lymphatic: No Adenopathy Was a procedure done? Was a procedure done?: No Differential Dx Differential Diagnosis: Bronchitis, CHF, COPD, Pneumonia, Pulmonary Embolism, Sinusitis, Pharyngitis, URI X-Ray, Labs, Meds, VS Vital Signs Date Time Temp Pulse Resp B/P (MAP) Pulse Ox O2 Delivery O2 Flow Rate FiO2 04/21/25 14:50 16 95 Nasal Cannula* 2 28 04/21/25 14:30 98.5 61 16 165/74 (104) 95 98.5 Lab Test 04/21/25 16:28 04/21/25 15:08 Range/Units Troponin I High Sensitivity Pending 11 </=34 ng/L White Blood Count 7.2 4.4-10.8 10^3/uL Red Blood Count 4.33 4.0-5.20 10^6/uL Hemoglobin 12.8 12.2-16.2 g/dL Hematocrit 39.3 36.0-46.0 % Mean Corpuscular Volume 90.6 80.0-100.0 fL Mean Corpuscular Hemoglobin 29.5 28.0-32.0 pg Mean Corpuscular Hemoglobin Concent 32.6 32.0-36.0 g/dL Red Cell Distribution Width 16.0 H 11.8-14.3 % Platelet Count 220 140-450 10^3/uL Mean Platelet Volume 7.3 6.9-10.8 fL Neutrophils (%) (Auto) 82.4 H 37.0-80.0 % Lymphocytes (%) (Auto) 13.6 10.0-50.0 % Monocytes (%) (Auto) 3.6 0.0-12.0 % Eosinophils (%) (Auto) 0.2 0.0-7.0 % Basophils (%) (Auto) 0.2 0.0-2.0 % Neutrophils # (Auto) 5.9 1.6-8.6 10 ^3/uL Lymphocytes # (Auto) 1.0 0.4-5.4 10 ^3/uL Monocytes # (Auto) 0.3 0-1.3 10 ^3/uL Eosinophils # (Auto) 0 0-0.8 10 ^3/uL Basophils # (Auto) 0 0-0.2 10 ^3/uL Nucleated Red Blood Cells 0.0 % Sodium Level 142 136-145 mmol/L Potassium Level 4.1 3.5-5.1 mmol/L Chloride Level 109 H 98-107 mmol/L Carbon Dioxide Level 22 20-31 mmol/L Anion Gap 11 5-15 Blood Urea Nitrogen 18 9-23 mg/dL Creatinine 1.15 H 0.550-1.02 mg/dL Glomerular Filtration Rate Calc 47 >90 mL/min BUN/Creatinine Ratio 15.7 10.0-20.0 Serum Glucose 145 H 74-106 mg/dL Calcium Level 9.5 8.7-10.4 mg/dL B-Type Natriuretic Peptide 406.20 0-100 pg/mL [place] [id number] Ph: [phone] DIAGNOSTIC IMAGING Diagnostic Imaging Report : [id number] Signed PATIENT: DELONTE GLORIA ACCT: [id number] UNIT: [id number] : 1940 LOC: ER ROOM / BED: / AGE / SEX: 84 / F ADM STATUS: REG ER SERVICE 1429 ORDERING PHYSICIAN: BENITO EDUARDO MD PROCEDURE(s): CXRP - CHEST PORTABLE REASON: sob ORDER NUMBER(s): [id number], ACCESSION NUMBER(s): [id number] EXAM: XY CHEST PORTABLE HISTORY: sob COMPARISON: XY CHEST PORTABLE on DOS: 11/25/24, XY CHEST PORTABLE on DOS: 05/04/23, XY CHEST PORTABLE on DOS: 12/26/22, chest CT dated 09/10/2024 TECHNIQUE: Portable upright AP view of the chest was performed. FINDINGS: No pneumothorax or consolidative infiltrates. There is diffuse interstitial prominence, greater centrally, similar to that seen previously. Cardiomegaly and postoperative changes of the heart re-identified. IMPRESSION: Cardiomegaly and postoperative changes of the heart with diffuse interstitial prominence which may be due to reactive airways disease or CHF. ATED BY: DENIZ JERRY MD DICTATED DATE/TIME: 04/21/251521 SIGNED BY: DENIZ JERRY MD SIGNED DATE/TIME: 04/21/251521 CC: Time of 1ST Reevaluation: 15:00 Reevaluation 1ST: Unchanged Patient Education/Counseling: Diagnosis, Treatment Family Education/Counseling: No Family Present SEPSIS Sepsis Screen Physician Orders Urinalysis (04/21/25 14:29) Chest Portable (04/21/25 14:29) Troponin-I Hs (04/21/25 15:29) Troponin-I Hs (04/21/25 17:29) Electrocardigram (04/21/25 14:29) Electrocardigram (04/21/25 15:29) Electrocardigram (04/21/25 17:29) Furosemide Injection (Lasix Injection) (04/21/25 17:00) Vital Signs Date Time Temp Pulse Resp B/P (MAP) Pulse Ox O2 Delivery O2 Flow Rate FiO2 04/21/25 14:50 16 95 Nasal Cannula* 2 28 04/21/25 14:30 98.5 61 16 165/74 (104) 95 98.5 Laboratory Tests Test 04/21/25 15:08 White Blood Count 7.2 10^3/uL (4.4-10.8) Departure 1 Departure Time of Disposition: 16:53 (Patient presented with shortness of breath that was concerning for possible STEMI, ACS, PE, Pneumonia, Muscle Strain, COPD, Dissection, Acute on Chronic systolic and Diastolic dysfunction. Data: 1. I ordered and reviewed the result of at least 3 labs including a CBC, BMP, and Troponin. 2. I independently interpreted the following tests: EKG which shows sinus arrhthmia and Chest X-ray which shows cardiomegaly.Risk:This patient has a high risk of morbidity due to further diagnostic testing or treatment and may suffer from an acute cardiac or respiratory disorder but is most consitent with an acute chf exacerbation. Patient should be admitted for further workup and possible expert consultation. ) Impression: Primary Impression: Acute on chronic heart failure Qualified Codes: I50.23 - Acute on chronic systolic (congestive) heart failure Additional Impression: Shortness of breath Disposition: ADMITTED INPATIENT Admit to: Med Surg Condition: Serious Critical Care Note Critical Care Time?: Yes Critical care comment: Acute shortness of breath Authorized and Performed by: Benito Eduardo MD Total critical care time: Approximately 39 minutes Due to a high probability of clinically significant, life threatening deterioration, the patient required my highest level of preparedness to intervene emergently and I personally spent this critical care time directly and personally managing the patient. This critical care time included obtaining a history; examining the patient; pulse oximetry; ordering and review of studies; arranging urgent treatment with development of a management plan; evaluation of patient's response to treatment; frequent reassessment; and, discussions with other providers. This critical care time was performed to assess and manage the high probability of imminent, life-threatening deterioration that could result in multi-organ failure. It was exclusive of separately billable procedures and treating other patients and teaching time. Please see my other sections and the rest of the note for further information on patient assessment and treatment. Stability Stability form required: No Heart Score Heart Score: Heart Score Response (Comments) Value History N/A 0 EKG N/A 0 Age N/A 0 Risk Factors N/A 0 Troponin N/A 0 Total 0 I personally scribed for BENITO EDUARDO MD ([email or web address]) on 04/21/25 at 15:00. Electronically submitted by Kristen Calles ([email or web address]). I personally scribed for BENITO EDUARDO MD ([email or web address]) on 04/21/25 at 15:39. Electronically submitted by Kristen Calles ([email or web address]). BENITO EDUARDO MD Apr 21, 2025 15:00
--- NOTE | 2025-04-21 15:25 | DVH ---
EXAM: XY CHEST PORTABLE HISTORY: sob COMPARISON: XY CHEST PORTABLE on DOS: 11/25/24, XY CHEST PORTABLE on DOS: 05/04/23, XY CHEST PORTABLE on DOS: 12/26/22, chest CT dated 09/10/2024 TECHNIQUE: Portable upright AP view of the chest was performed. FINDINGS: No pneumothorax or consolidative infiltrates. There is diffuse interstitial prominence, greater cent rally, similar to that seen previously. Cardiomegaly and postoperative changes of the heart re-identi fied. IMPRESSION: Cardiomegaly and postoperative changes of the heart with diffuse interstitial prominence which may be due to reactive airways disease or CHF.
[2025-04-21 15:42] LABS: Hematocrit 39.3 % (36.0-46.0); Hemoglobin 12.8 g/dL (12.2-16.2); Mean Corpuscular Hemoglobin 29.5 pg (28.0-32.0); Mean Corpuscular Volume 90.6 fL (80.0-100.0); Nucleated Red Blood Cells % 0.0 %
[2025-04-21 15:45] LABS: Potassium 4.1 mmol/L (3.5-5.1); Sodium 142 mmol/L (136-145)
[2025-04-21 15:46] LABS: Anion Gap 11 (5-15); Calcium 9.5 mg/dL (8.7-10.4); Carbon Dioxide 22 mmol/L (20-31)
[2025-04-21 15:51] LABS: BUN/Creatinine Ratio 15.7 (10.0-20.0); Blood Urea Nitrogen 18 mg/dL (9-23)
[2025-04-21 15:53] LABS: Chloride 109 mmol/L (98-107); Glucose 145 mg/dL (74-106)
--- NOTE | 2025-04-21 19:12 | ECG ---
[facility] Test Date: 2025-04-21 Test Time: 14:33:33 Pat Name: DELONTE GLORIA Department: ED Room: 0276T Gender: F Branch Controller: ERICA : 1940 Requested By: BENITO EDUARDO Order Number: [id number] Reading MD: Alexis Morales Measurements Intervals [place] Rate: 56 P: 21 TN: 151 QRS: -19 QRSD: 101 T: 29 QT: 495 QTc: 478 Interpretive Statements Sinus rhythm Atrial premature complex Inferior infarct, old Baseline wander in lead(s) II,III,aVF Electronically Signed On 04-23-2025 17:50:30 PDT by Alexis Morales Please click the below link to view image of tracing.
[2025-04-21] MEDS ORDERED: ONDANSETRON HCL 4 MG/2 ML VIAL IV PRN (19:45)
[2025-04-21] MEDS ORDERED: ALBUTEROL SULF 2.5 MG/0.5ML(0.5%) NEB SOLN NEB PRN (19:45)
[2025-04-21] MEDS ORDERED: NITROGLYCERIN 0.4 MG SL TAB SL PRN (19:45)
[2025-04-21] MEDS ORDERED: hydrALAZINE HCL 20 MG/ML VL IV PRN (19:45)
[2025-04-21] MEDS ORDERED: MORPHINE SULFATE INJ 2 MG/ml SYRG IV PRN (19:45)
[2025-04-21] MEDS ORDERED: DEXTROSE (50%) 50ML SYRG IV PRN (19:45)
[2025-04-21 19:54] VITALS: BP 165/79; PULSE 61; RESP 16; TEMP 98.5; O2SAT 95
--- NOTE | 2025-04-21 21:59 | DVHHP2 ---
History of Present Illness Reason for Visit: Shortness of breath History of Present Illness 84-year-old female presents for evaluation of shortness for breath. Patient with a history of congestive heart failure, COPD and MS presents with a two day history of substernal chest tightness/heaviness with lower extremity swelling. Denies cough or fever. Patient reports having to use 2 L of nasal cannula oxygen at home and sudden not feeling any relief. Past Medical History CHF, chronic kidney disease, AFib, COPD, CVA, dyslipidemia Past Surgical History CABG, cholecystectomy, appendectomy, hysterectomy, tonsillectomy Family History Noncontributory Smoke: No ALCOHOL: none Drugs: None Lives: with Family Review of Systems Review of Systems Review of systems are currently negative otherwise addressed in HPI. Allergies: Coded Allergies: NO KNOWN ALLERGIES (Unverified , 12/22/22) Medications Current Medications Medications Dose Ordered Sig/Dejah Route Start Time Stop Time Status Last Admin Dose Admin Hydralazine HCl 10 mg Q6HP PRN IV 04/21/25 19:45 Atorvastatin Calcium 10 mg HS PO 04/21/25 22:00 Clopidogrel Bisulfate 75 mg DAILY PO 04/22/25 10:00 Furosemide 20 mg BIDD IV 04/22/25 06:00 Gabapentin 600 mg BID PO 04/21/25 22:00 Metoprolol Succinate 25 mg DAILY PO 04/22/25 10:00 Pantoprazole Sodium 40 mg DAILY@0600 PO 04/22/25 06:00 Spironolactone 25 mg DAILY PO 04/22/25 10:00 Diagnostic Test (Pha) 1 strip ACHS 04/21/25 22:00 Insulin Human Regular ACHS SC 04/21/25 22:00 Dextrose 50 ml UD PRN IV 04/21/25 19:45 Ondansetron HCl 4 mg Q4HP PRN IV 04/21/25 19:45 Enoxaparin Sodium 30 mg DAILY SC 04/22/25 10:00 Acetaminophen 650 mg Q6HP PRN PO 04/21/25 19:45 Nitroglycerin 0.4 mg Q5MINP PRN SL 04/21/25 19:45 Morphine Sulfate 2 mg Q30M PRN IV 04/21/25 19:45 Albuterol 2.5 mg Q6HPRN PRN NEB 04/21/25 19:45 Exam Vital Signs Vital Signs Date Time Temp Pulse Resp B/P (MAP) Pulse Ox O2 Delivery O2 Flow Rate FiO2 04/21/25 20:59 97.7 68 20 148/80 (102) 96 97.7 04/21/25 19:54 Nasal Cannula 2.0 04/21/25 19:54 28 Exam Gen: 84-year-old female in mild distress Skin: Warm, dry, normal color and texture, no rash. HEENT: Normocephalic atraumatic, mucous membranes moist and pink. Neck: Cervical and supraclavicular nodes normal without enlargement, trachea is midline, thyroid gland is normal without masses. Pulmonary: Diminished breath sounds bilaterally Cardiac: Regular rate and rhythm. No murmur Abdomen: Soft, nontender, nondistended, bowel sounds present all 4 quadrants, no guarding, no rigidity, no organomegaly. Extremities: No cyanosis, clubbing, no edema Neuro: Cranial nerves II through XII grossly intact, normal affect and speech, no focal motor deficits. Labs/Xrays ORDERING PHYSICIAN: BENITO EDUARDO MD PROCEDURE(s): CXRP - CHEST PORTABLE REASON: sob ORDER NUMBER(s): [id number], ACCESSION NUMBER(s): [id number] EXAM: XY CHEST PORTABLE HISTORY: sob COMPARISON: XY CHEST PORTABLE on DOS: 11/25/24, XY CHEST PORTABLE on DOS: 05/04/23, XY CHEST PORTABLE on DOS: 12/26/22, chest CT dated 09/10/2024 TECHNIQUE: Portable upright AP view of the chest was performed. FINDINGS: No pneumothorax or consolidative infiltrates. There is diffuse interstitial prominence, greater centrally, similar to that seen previously. Cardiomegaly and postoperative changes of the heart re-identified. IMPRESSION: Cardiomegaly and postoperative changes of the heart with diffuse interstitial prominence which may be due to reactive airways disease or CHF. Labs Test 04/21/25 20:49 04/21/25 18:33 04/21/25 15:08 Range/Units D-Dimer, Quantitative 0.72 H 0.0-0.49 mg/L FEU Troponin I High Sensitivity 15 </=34 ng/L White Blood Count 7.2 4.4-10.8 10^3/uL Red Blood Count 4.33 4.0-5.20 10^6/uL Hemoglobin 12.8 12.2-16.2 g/dL Hematocrit 39.3 36.0-46.0 % Mean Corpuscular Volume 90.6 80.0-100.0 fL Mean Corpuscular Hemoglobin 29.5 28.0-32.0 pg Mean Corpuscular Hemoglobin Concent 32.6 32.0-36.0 g/dL Red Cell Distribution Width 16.0 H 11.8-14.3 % Platelet Count 220 140-450 10^3/uL Mean Platelet Volume 7.3 6.9-10.8 fL Neutrophils (%) (Auto) 82.4 H 37.0-80.0 % Lymphocytes (%) (Auto) 13.6 10.0-50.0 % Monocytes (%) (Auto) 3.6 0.0-12.0 % Eosinophils (%) (Auto) 0.2 0.0-7.0 % Basophils (%) (Auto) 0.2 0.0-2.0 % Neutrophils # (Auto) 5.9 1.6-8.6 10 ^3/uL Lymphocytes # (Auto) 1.0 0.4-5.4 10 ^3/uL Monocytes # (Auto) 0.3 0-1.3 10 ^3/uL Eosinophils # (Auto) 0 0-0.8 10 ^3/uL Basophils # (Auto) 0 0-0.2 10 ^3/uL Nucleated Red Blood Cells 0.0 % Sodium Level 142 136-145 mmol/L Potassium Level 4.1 3.5-5.1 mmol/L Chloride Level 109 H 98-107 mmol/L Carbon Dioxide Level 22 20-31 mmol/L Anion Gap 11 5-15 Blood Urea Nitrogen 18 9-23 mg/dL Creatinine 1.15 H 0.550-1.02 mg/dL Glomerular Filtration Rate Calc 47 >90 mL/min BUN/Creatinine Ratio 15.7 10.0-20.0 Serum Glucose 145 H 74-106 mg/dL Calcium Level 9.5 8.7-10.4 mg/dL B-Type Natriuretic Peptide 406.20 0-100 pg/mL SEPSIS Sepsis Screen Date sepsis recognized/suspect: Apr 21, 2025 Time Sepsis recognized/suspect: 1424 Recent Procedure: No On Antibiotic Therapy: No Respiratory Rate >20: No Heart Rate >90: No Temp<36 C (96.8 F) or >38.3 C: No SBP <90 or MAP <65 mmHG: No New Acute Mental Status Change: No Is the patient on CPAP, BIPAP,: No Physician Orders Chest Portable (04/21/25 14:29) Electrocardigram (04/21/25 15:29) Electrocardigram (04/21/25 17:29) Hydralazine Injection (Apresoline Inject (04/21/25 19:45) Urinalysis (04/21/25 19:38) Atorvastatin (Lipitor) (04/21/25 22:00) Clopidogrel Bisulfate (Plavix) (04/22/25 10:00) Furosemide Injection (Lasix Injection) (04/22/25 06:00) Gabapentin Capsule (Neurontin Capsule) (04/21/25 22:00) Metoprolol Xl Succinate (Toprol Xl) (04/22/25 10:00) Pantoprazole Tablet (Protonix Tablet) (04/22/25 06:00) Spironolactone (Aldactone) (04/22/25 10:00) Basic Metabolic Panel (04/22/25 04:00) Glucose Blood (Accu-Chek Comfort Curve T (04/21/25 22:00) Insulin R (Human) (Insulin R) (04/21/25 22:00) Dextrose 50% Syringe (04/21/25 19:45) Admit (04/21/25 19:38) Ondansetron Hcl (Zofran) (04/21/25 19:45) Complete Blood Count (04/22/25 04:00) Cardiac Diet-2gna,Lofat,Lochol (04/22/25 Breakfast) Echo 2d Mode Cardiac Dop (04/21/25 19:38) Condition: Stable (04/21/25 19:38) Enoxaparin Sodium (Lovenox) (04/22/25 10:00) Acetaminophen Tablet (Tylenol Tablet) (04/21/25 19:45) Bedrest With Bathroom Privileg (04/21/25 19:38) Nitroglycerin Sublingual (Ntrostat Subli (04/21/25 19:45) Morphine Sulfate Injection (04/21/25 19:45) Stat Ekg For Chest Pain (04/21/25 19:38) Notify Md Of Changes From Base (04/21/25 19:38) [employer] For 24 Hours (04/21/25 19:38) Emergency Dysrhythmia Protocol (04/21/25 19:38) Rhythm Strips Once Every Shift (04/21/25 19:38) Oxygen By Nasal Cannula (04/21/25 19:38) Albuterol Medneb (Ventolin Medneb) (04/21/25 19:45) Vital Signs Date Time Temp Pulse Resp B/P (MAP) Pulse Ox O2 Delivery O2 Flow Rate FiO2 04/21/25 20:59 97.7 68 20 148/80 (102) 96 97.7 04/21/25 19:54 95 Nasal Cannula 2.0 04/21/25 19:54 95 Nasal Cannula* 2 28 04/21/25 19:54 98.5 61 16 165/79 95 2.0 28 98.5 04/21/25 16:30 98.3 62 20 142/75 (97) 96 98.3 04/21/25 14:50 16 95 Nasal Cannula* 2 28 04/21/25 14:30 98.5 61 16 165/74 (104) 95 98.5 Laboratory Tests Test 04/21/25 15:08 White Blood Count 7.2 10^3/uL (4.4-10.8) Assessment/Plan Assessment/Plan Assessment Acute on chronic respiratory failure CHF exacerbation COPD History of MS Chronic kidney disease Diabetes mellitus Plan Admit the patient to telemetry to the hospitalist IV Lasix Resume home medications Med nebs Continue treatment per orders. Plan discussed with: Patient My Orders Orders - MAURA CLARK Procedure Category Date Status Time Hydralazine Injection PHA 04/21/25 In Process (Apresoline Inject 19:45 Urinalysis LAB 04/21/25 Logged 19:38 Atorvastatin (Lipitor) PHA 04/21/25 In Process 22:00 Clopidogrel Bisulfate PHA 04/22/25 In Process (Plavix) 10:00 Furosemide Injection PHA 04/22/25 In Process (Lasix Injection) 06:00 Gabapentin Capsule PHA 04/21/25 In Process (Neurontin Capsule) 22:00 Metoprolol Xl PHA 04/22/25 In Process Succinate (Toprol Xl) 10:00 Pantoprazole Tablet PHA 04/22/25 In Process (Protonix Tablet) 06:00 Spironolactone PHA 04/22/25 In Process (Aldactone) 10:00 Basic Metabolic Panel LAB 04/22/25 Verified 04:00 Glucose Blood PHA 04/21/25 In Process (Accu-Chek Comfort 22:00 Insulin R (Human) PHA 04/21/25 In Process (Insulin R) 22:00 Dextrose 50% Syringe PHA 04/21/25 In Process 19:45 Admit ADMIT 04/21/25 Transmitted 19:38 Ondansetron Hcl PHA 04/21/25 In Process (Zofran) 19:45 Complete Blood Count LAB 04/22/25 Verified 04:00 Cardiac DIET 04/22/25 Transmitted Diet-2gna,Lofat,Lochol Breakfast Echo 2d Mode Cardiac US 04/21/25 Logged DOP 19:38 Condition: Stable JAKY 04/21/25 In Process 19:38 Enoxaparin Sodium PHA 04/22/25 In Process (Lovenox) 10:00 Acetaminophen Tablet PHA 04/21/25 In Process (Tylenol Tablet) 19:45 Bedrest With Bathroom JAKY 04/21/25 In Process Privileg 19:38 Nitroglycerin PHA 04/21/25 In Process Sublingual (Ntrostat 19:45 Morphine Sulfate PHA 04/21/25 In Process Injection 19:45 Stat Ekg For Chest [facility] 04/21/25 In Process Pain 19:38 Notify Md Of Changes JAKY 04/21/25 In Process From Base 19:38 [employer] For [facility] 04/21/25 In Process 24 Hours 19:[address] [facility] 04/21/25 In Process Protocol 19:38 Rhythm Strips [address] [facility] 04/21/25 In Process Every Shift 19:38 Oxygen By Nasal RT 04/21/25 Transmitted Cannula 19:38 Albuterol Medneb PHA 04/21/25 In Process (Ventolin Medneb) 19:45 Date of Service: Apr 21, 2025 Billing Provider: MAURA CLARK Common Visit Codes: [id number] INP/OBS CARE (HIGH) MAURA CLARK Apr 21, 2025 21:59
[2025-04-22] VITALS (11 sets, daily range): BP systolic 108–187; BP diastolic 49–82; PULSE 48–72; RESP 18–20; TEMP 97.1–98.7; O2SAT 92–100
[2025-04-22] MEDS: ATORVASTATIN 20 MG TAB PO SCH (00:37)
[2025-04-22] MEDS: FUROSEMIDE 40 MG/4 ML VIAL IV ONE (00:37)
[2025-04-22] MEDS: GABAPENTIN 300 MG CAP PO SCH (00:37)
[2025-04-22] MEDS: FUROSEMIDE 20 MG/2 ML VIAL IV SCH ×2 (06:00→10:36)
[2025-04-22] MEDS: PANTOPRAZOLE 40 MG TAB PO SCH (06:13)
[2025-04-22 06:31] LABS: Anion Gap 13 (5-15); Carbon Dioxide 21 mmol/L (20-31); Potassium 3.8 mmol/L (3.5-5.1); Sodium 142 mmol/L (136-145)
[2025-04-22 06:37] LABS: BUN/Creatinine Ratio 15.6 (10.0-20.0); Blood Urea Nitrogen 19 mg/dL (9-23)
[2025-04-22 06:44] LABS: Calcium 10.4 mg/dL (8.7-10.4); Chloride 108 mmol/L (98-107); Glucose 129 mg/dL (74-106)
[2025-04-22 06:50] LABS: Hematocrit 40.7 % (36.0-46.0); Hemoglobin 13.6 g/dL (12.2-16.2); Mean Corpuscular Hemoglobin 29.4 pg (28.0-32.0); Mean Corpuscular Volume 88.0 fL (80.0-100.0); Nucleated Red Blood Cells % 0.3 %
[2025-04-22] MEDS ORDERED: FUROSEMIDE 20 MG/2 ML VIAL IV SCH (08:30)
[2025-04-22] MEDS ORDERED: METOPROLOL SUCCINATE XL 50 MG TAB PO SCH (10:00)
[2025-04-22] MEDS: ENOXAPARIN SOD 30 MG/0.3 ML SYRINGE SC SCH (10:36)
[2025-04-22] MEDS: CLOPIDOGREL BISULFATE 75 MG TAB PO SCH (10:37)
[2025-04-22] MEDS: SPIRONOLACTONE 25 MG TAB PO SCH (10:37)
--- NOTE | 2025-04-22 12:10 | DVH ---
Bilateral lower extremity venous duplex Clinical History: Edema Comparison: US LT LOWER DVT on DOS: 04/27/23, US LT LOWER DVT on DOS: 04/11/23 Findings: Duplex Doppler evaluation of the deep venous systems of both lower extremities from the common femora l veins to the popliteal veins including color Doppler and spectral/pulsed waveform analysis was perf ormed. RIGHT SIDE: The common femoral vein demonstrates appropriate compressibility and waveform variability. There is compressibility/patency of the great saphenous vein at the proximal thigh. The femoral vein demonstrates appropriate compressibility and waveform variability. The deep femoral vein demonstrates appropriate compressibility and waveform variability. The popliteal vein demonstrates appropriate compressibility and waveform variability. There is normal compressibility at the tibioperoneal trunk. LEFT SIDE: The common femoral vein demonstrates appropriate compressibility and waveform variability. There is compressibility/patency of the great saphenous vein at the proximal thigh. The femoral vein demonstrates appropriate compressibility and waveform variability. The deep femoral vein demonstrates appropriate compressibility and waveform variability. The popliteal vein demonstrates appropriate compressibility and waveform variability. There is normal compressibility at the tibioperoneal trunk. IMPRESSION: No right or left femoropopliteal venous thrombosis. If clinical concern/symptoms persist or worsen, short-interval follow-up study is suggested. END IMPRESSION:
[2025-04-22] MEDS: ACETAMINOPHEN 325 MG TAB PO PRN (12:26)
[2025-04-22] MEDS: cefTRIAXone 1GM/50ML D5W 50 ML IV SCH (13:00)
--- NOTE | 2025-04-22 13:32 | DVHPNRES ---
Progress Note Date Seen: Apr 22, 2025 Resident Creating Document: EDILBERTO CHARLES RESIDENT Medical Necessity Reason Pt with a Central, PICC or Fol: No Subjective Review of Systems Matt Hope is an 84-year-old female with past medical history of atrial fibrillation, CHF, DM, HTN, COPD, stroke, dyslipidemia, Parkinson's, CKD, uterine cancer, presented to the ER with complains of chest pain, shortness of breaths. She complains that the pain started 3 days ago, and continued to worsen. The pain is continuous, feeling of heaviness, no aggravating or relieving factors. She is on 2 L home oxygen since last 2 months. No associated fever, cough, loss of consciousness. She also complains of being scratched by a cat on her left foot, causing puncture wound. She does not complain of any pain, itchiness. Previous hospitalization: Previously hospitalized for GI complaints, pneumonia PMHx: Atrial fibrillation, CHF, DM, HTN, COPD, stroke, dyslipidemia, Parkinson's, CKD, uterine cancer PSHx: CABG, cholecystectomy, appendectomy, hysterectomy Social history: Lives in a senior community, has home health. Uses a four- wheel walker for ambulation. No smoking no recreational drugs, alcohol use occasional. Home medication: Unsure ROS: Constitutional: Denies weight loss, fever and chills. HEENT: Denies changes in vision and hearing. Respiratory: Denies shortness of breath and cough Cardiovascular: Chest discomfort, shortness of breath GI: Denies abdominal pain, nausea, vomiting and diarrhea. : Denies dysuria and urinary frequency. Musculoskeletal: Denies myalgias and joint pain Skin: Denies rash and pruritus. Neurological: Denies dizziness, headache, vision or hearing problems Was examined at bedside today. Continues to complain of mild shortness of breaths. She has redness on her left leg. Objective vital signs Vital Sign Date Time Temp Pulse Resp B/P (MAP) Pulse Ox O2 Delivery O2 Flow Rate FiO2 04/22/25 10:36 147/68 04/22/25 09:40 96 Nasal Cannula* 1 24 04/22/25 09:00 98.7 48 18 98.7 Total Intake and Output 04/21/25 04/21/25 04/22/25 15:00 23:00 07:00 Intake Total 260 ml Output Total 3 ml Balance 257 ml medications Current Medications Medications Dose Ordered Sig/Dejah Route Start Time Stop Time Status Last Admin Dose Admin Atorvastatin Calcium 10 mg HS PO 04/21/25 22:00 04/22/25 00:37 10 MG Clopidogrel Bisulfate 75 mg DAILY PO 04/22/25 10:00 04/22/25 10:37 75 MG Gabapentin 600 mg BID PO 04/21/25 22:00 04/22/25 10:37 600 MG Pantoprazole Sodium 40 mg DAILY@0600 PO 04/22/25 06:00 04/22/25 06:13 40 MG Spironolactone 25 mg DAILY PO 04/22/25 10:00 04/22/25 10:37 25 MG Diagnostic Test (Pha) 1 strip ACHS 04/21/25 22:00 04/22/25 12:21 1 STRIP Insulin Human Regular ACHS SC 04/21/25 22:00 Dextrose 50 ml UD PRN IV 04/21/25 19:45 Ondansetron HCl 4 mg Q4HP PRN IV 04/21/25 19:45 Enoxaparin Sodium 30 mg DAILY SC 04/22/25 10:00 04/22/25 10:36 30 MG Acetaminophen 650 mg Q6HP PRN PO 04/21/25 19:45 04/22/25 12:26 650 MG Albuterol 2.5 mg Q6HPRN PRN NEB 04/21/25 19:45 Furosemide 20 mg DAILY IV 04/23/25 10:00 Ceftriaxone Sodium 50 ml @ 100 mls/hr DAILY@09 IV 04/22/25 12:00 04/22/25 13:00 100 MLS/HR Examination General: Patient alert and oriented in person, place and time. Patient following commands. HEENT: Normocephalic, atraumatic, moist mucous membranes Respiratory/pulmonary: Clear lungs bilaterally, vesicular murmurs present in almost all lung najera, no associated crackles or wheezes. Cardiovascular: Normal heart sounds S1 and S2 with no associated murmurs Abdomen: Abdomen nondistended, there is no pain to palpation in any of the abdominal quadrants, no palpable masses. Extremities: Left leg has cat scratch wound, dressing dry. She has a cellulitis on the left foot. Reduced motor strength in all 4 extremities. Grade 2 pitting edema present. Erythema, increased temperature on left leg Peripheral Pulses: 3+ Radial (R). 3+ Radial (L). 3+ Dorsalis pedis (R). 3+ Dorsalis pedis(L) Skin: No rashes or pruritus, there is no sacral edema present at this time. Neurological: Intact cranial nerves with no focal neurologic deficits laboratory and microbiology Laboratory Tests 04/22/25 05:06 Test 04/22/25 05:06 Range/Units Serum Glucose 129 H 74-106 mg/dL Problem List/Assessment/Plan Problem List/Assessment/Plan Acute on chronic hypoxic respiratory failure, due to below: COPD exacerbation, possible Acute on chronic systolic heart failure (improved ejection fraction), possible History of AFib, currently sinus rhythm Chest pain, possible cardiac * Chest x-ray shows enlarged cardiac silhouette * Troponin WNL * EKG revealed atrial premature complex, old inferior infarct, Baseline wander in lead(s) II,III,aVF * IV diuretic Hypertensive urgency * Managed with spironolactone, metoprolol, hydralazine History of Chronic kidney disease * Labs show Increased creatinine Diabetes mellitus * Diet controlled. Counseled on lifestyle management. History of CVA Cellulitis, left leg, possible * Started ceftriaxone 1 g daily DIET: Cardiac diet DVT PROPHYLAXIS: Lovenox CODE STATUS: Goal of care discussed for more than 18 minutes, full code DISPOSITION: Telemetry Patient's status and plan discussed with the patient. Case discussed with Dr. Denise. Plan discussed with: Patient My Orders My Orders Orders - EDILBERTO CHARLES Procedure Category Date Status Time Ceftriaxone 1gm/50ml PHA 04/22/25 In Process D5w (Rocephin) 12:00 Date of Service: Apr 22, 2025 Billing Provider: JESSICA DENISE MD Common Visit Codes: [id number] INP/OBS CARE(HIGH) EDILBERTO CHARLES Apr 22, 2025 13:32 JESSICA DENISE MD Apr 24, 2025 13:47
--- NOTE | 2025-04-22 17:38 | DVHSR ---
APPROVED REPORT EXAM: Two-dimensional and M-mode echocardiogram with Doppler and color Doppler. Blood Pressure: 143/75 mmHg INDICATION EF RISK FACTORS Height: 5'3", Weight: 184 DIMENSIONS LVDd4.8 (3.8-5.7cm)LA (2D)4.9 (1.9-4.0cm)Aortic Root2.7 (2.0-3.7cm) LVDs3.3 (2.5-4.0cm)LA (MM) (1.9-4.0cm)Aortic Cusp Exc1.4 (1.5-2.0cm) EF (%) 57.0 (55-70%)Rt. Atrium5.0 (1.9-4.0cm)Asc. Aorta cm IVSd0.9 (0.7-1.1cm)RV (D)3.5 (1.8-2.4cm) PWd0.9 (0.7-1.1cm) Mitral Valve MitralMitral Stenosis E wave1.11m/sMV Mean GR.mmHg A wave0.41m/sMV Peak GR.mmHg E/A ratio2.72D MVAcm2 DECEL [id number] 1/2 Timems Aortic Valve Aortic ValveAortic Stenosis V10.97m/Camilo Mean GR.9mmHg V22.11m/aCmilo Peak GR.18mmHg LVOT Diameter1.9 (1.8-2.4cm)Doppler AVA1.30cm2 AI P 1/2 Rhra071.28ms Pulmonic Valve V21.12m/s Tricuspid Valve TR Velocity2.63m/s [id number] Conclusion lvef 50-55% dilated LV cavity mild RV Enlarged severe biatrial enalrgement restrictive LV filling pattern mild to moderate mitral regurg
[2025-04-23] VITALS (8 sets, daily range): BP systolic 127–159; BP diastolic 50–74; PULSE 45–69; RESP 16–18; TEMP 97.5–98.3; O2SAT 96–99
[2025-04-23] MEDS: HYDROcodone-ACET 5/325MG TAB PO ONE (09:27)
[2025-04-23] MEDS: EMPAGLIFLOZIN 10 MG TAB PO SCH (09:28)
[2025-04-23] MEDS: FUROSEMIDE 20 MG/2 ML VIAL IV SCH (09:29)
[2025-04-23] MEDS: FUROSEMIDE 20 MG/2 ML VIAL IV ONE (10:57)
[2025-04-23 11:05] LABS: Hepatitis B Surface Antigen Negative (Negative); Hepatitis C Antibody Negative (Negative)
[2025-04-23 11:43] LABS: Iron 60.0 ug/dL (50-170)
[2025-04-23 11:45] LABS: Alanine Aminotransferase 17 U/L (7-40); Albumin 3.9 g/dL (3.2-4.8); Alkaline Phosphatase 62 U/L (46-116); Anion Gap 8 (5-15); BUN/Creatinine Ratio 19.3 (10.0-20.0); Bilirubin, Total 0.4 mg/dL (0.2-1.0); Calcium 9.0 mg/dL (8.7-10.4); Carbon Dioxide 26 mmol/L (20-31); Potassium 3.6 mmol/L (3.5-5.1); Sodium 142 mmol/L (136-145); Total Protein 7.0 g/dL (5.7-8.2)
[2025-04-23 11:46] LABS: Total Iron Binding Capacity 274.0 ug/dL (250-425)
[2025-04-23 11:48] LABS: Blood Urea Nitrogen 26 mg/dL (9-23); Chloride 108 mmol/L (98-107); Glucose 122 mg/dL (74-106)
--- NOTE | 2025-04-23 15:57 | DVHDSRES ---
Discharge Summary Date of Admission Resident Creating Document: EDILBERTO CHARLES RESIDENT Apr 21, 2025 at 19:38 Date of Discharge: Apr 23, 2025 Admitting Diagnosis Acute on chronic hypoxic respiratory failure, due to COPD exacerbation, possible Wounds: No large wounds Labs/Diagnostic Data: Laboratory Results Test 04/23/25 11:28 04/23/25 11:12 04/22/25 05:06 04/21/25 20:49 POC Glucose 112 mg/dl (70-106) Sodium Level 142 mmol/L (136-145) Potassium Level 3.6 mmol/L (3.5-5.1) Chloride Level 108 mmol/L (98-107) Carbon Dioxide Level 26 mmol/L (20-31) Anion Gap 8 (5-15) Blood Urea Nitrogen 26 mg/dL (9-23) Creatinine 1.35 mg/dL (0.550-1.02) Glomerular Filtration Rate Calc 39 mL/min (>90) BUN/Creatinine Ratio 19.3 (10.0-20.0) Serum Glucose 122 mg/dL (74-106) Calcium Level 9.0 mg/dL (8.7-10.4) Magnesium Level 2.1 mg/dL (1.6-2.6) Iron Level 60 ug/dL (50-170) Total Iron Binding Capacity 274 ug/dL (250-425) Percent Iron Saturation 21.9 % (15-50) Ferritin 45.9 ng/mL (10-291) Total Bilirubin 0.4 mg/dL (0.2-1.0) Aspartate Amino Transferase (AST) 22 U/L (13-40) Alanine Aminotransferase (ALT) 17 U/L (7-40) Alkaline Phosphatase 62 U/L (46-116) Total Protein 7.0 g/dL (5.7-8.2) Albumin 3.9 g/dL (3.2-4.8) Thyroid Stimulating Hormone (TSH) 2.48 uIU/mL (0.55-4.78) White Blood Count 8.3 10^3/uL (4.4-10.8) Red Blood Count 4.63 10^6/uL (4.0-5.20) Hemoglobin 13.6 g/dL (12.2-16.2) Hematocrit 40.7 % (36.0-46.0) Mean Corpuscular Volume 88.0 fL (80.0-100.0) Mean Corpuscular Hemoglobin 29.4 pg (28.0-32.0) Mean Corpuscular Hemoglobin Concent 33.4 g/dL (32.0-36.0) Red Cell Distribution Width 15.7 % (11.8-14.3) Platelet Count 260 10^3/uL (140-450) Mean Platelet Volume 7.8 fL (6.9-10.8) Neutrophils (%) (Auto) 74.2 % (37.0-80.0) Lymphocytes (%) (Auto) 17.7 % (10.0-50.0) Monocytes (%) (Auto) 6.8 % (0.0-12.0) Eosinophils (%) (Auto) 1.0 % (0.0-7.0) Basophils (%) (Auto) 0.3 % (0.0-2.0) Neutrophils # (Auto) 6.1 10 ^3/uL (1.6-8.6) Lymphocytes # (Auto) 1.5 10 ^3/uL (0.4-5.4) Monocytes # (Auto) 0.6 10 ^3/uL (0-1.3) Eosinophils # (Auto) 0.1 10 ^3/uL (0-0.8) Basophils # (Auto) 0 10 ^3/uL (0-0.2) Nucleated Red Blood Cells 0.3 % Hepatitis B Surface Antigen Negative (Negative) Hepatitis C Antibody Negative (Negative) D-Dimer, Quantitative 0.72 mg/L FEU (0.0-0.49) Test 04/21/25 18:33 04/21/25 15:08 Troponin I High Sensitivity 15 ng/L (</=34) B-Type Natriuretic Peptide 406.20 pg/mL (0-100) Other Laboratory Tests 04/23/25 11:12 04/22/25 05:06 Brief Hx & Hospital Course: Matt Hope is an 84-year-old female with past medical history of atrial fibrillation, CHF, DM, HTN, COPD, stroke, dyslipidemia, Parkinson's, CKD, uterine cancer, presented to the ER with complains of chest pain, shortness of breaths. She complained that the pain started 3 days ago, and continued to worsen. The pain is continuous, feeling of heaviness, no aggravating or relieving factors. She was on 2 L home oxygen since last 2 months. No associated fever, cough, loss of consciousness. She also complained of being scratched by a cat on her left foot, causing puncture wound. Her left leg skin had erythema, swelling with warmth. She does not complain of any pain, itchiness. She lives in a senior community, has home health. Uses a four-wheel walker for ambulation. During her stay, it DVT revealed no right or left femoropopliteal venous thrombosis. CXR showed cardiomegaly and postoperative changes of the heart with diffuse interstitial prominence which may be due to reactive airways disease or CHF. During her stay, she was managed with IV furosemide, ceftriaxone, med neb treatment. Today, she had no new complaints. Her labs and vitals are stable on room air. She is stable for discharge and will follow-up closely with cardiology and PCP outpatient. On assessment, RCRI 2 points RCRI Score 5 % risk of major cardiac event. [place] perioperative 2.4 % Risk of myocardial infarction or cardiac arrest, intraoperatively or up to 30 days post-op. This is based on information available and presented as of 04/23/2025 and 4 p.m. Operations or Procedures Bilateral lower extremity venous duplex Clinical History: Edema Comparison: US LT LOWER DVT on DOS: 04/27/23, US LT LOWER DVT on DOS: 04/11/23 Findings: Duplex Doppler evaluation of the deep venous systems of both lower extremities from the common femoral veins to the popliteal veins including color Doppler and spectral/pulsed waveform analysis was performed. RIGHT SIDE: The common femoral vein demonstrates appropriate compressibility and waveform variability. There is compressibility/patency of the great saphenous vein at the proximal thigh. The femoral vein demonstrates appropriate compressibility and waveform variability. The deep femoral vein demonstrates appropriate compressibility and waveform variability. The popliteal vein demonstrates appropriate compressibility and waveform variability. There is normal compressibility at the tibioperoneal trunk. LEFT SIDE: The common femoral vein demonstrates appropriate compressibility and waveform variability. There is compressibility/patency of the great saphenous vein at the proximal thigh. The femoral vein demonstrates appropriate compressibility and waveform variability. The deep femoral vein demonstrates appropriate compressibility and waveform variability. The popliteal vein demonstrates appropriate compressibility and waveform variability. There is normal compressibility at the tibioperoneal trunk. IMPRESSION: No right or left femoropopliteal venous thrombosis. If clinical concern/symptoms persist or worsen, short-interval follow-up study is suggested. ---- XY CHEST PORTABLE HISTORY: sob COMPARISON: XY CHEST PORTABLE on DOS: 11/25/24, XY CHEST PORTABLE on DOS: 05/04/23, XY CHEST PORTABLE on DOS: 12/26/22, chest CT dated 09/10/2024 TECHNIQUE: Portable upright AP view of the chest was performed. FINDINGS: No pneumothorax or consolidative infiltrates. There is diffuse interstitial prominence, greater centrally, similar to that seen previously. Cardiomegaly and postoperative changes of the heart re-identified. IMPRESSION: Cardiomegaly and postoperative changes of the heart with diffuse interstitial prominence which may be due to reactive airways disease or CHF. ---- Two-dimensional and M-mode echocardiogram with Doppler and color Doppler. Blood Pressure: 143/75 mmHg INDICATION EF RISK FACTORS Height: 5'3", Weight: 184 DIMENSIONS LVDd 4.8 (3.8-5.7cm) LA (2D) 4.9 (1.9-4.0cm) Aortic Root 2.7 (2.0- 3.7cm) LVDs 3.3 (2.5-4.0cm) LA (MM) (1.9-4.0cm) Aortic Cusp Exc 1.4 (1.5- 2.0cm) EF (%) 57.0 (55-70%) Rt. Atrium 5.0 (1.9-4.0cm) Asc. Aorta cm IVSd 0.9 (0.7-1.1cm) RV (D) 3.5 (1.8-2.4cm) PWd 0.9 (0.7-1.1cm) Mitral Valve Mitral Mitral Stenosis E wave 1.11m/s MV Mean GR. mmHg A wave 0.41m/s MV Peak GR. mmHg E/A ratio 2.7 2D MVA cm2 DECEL Time 156ms PRESS 1/2 Time ms Aortic Valve Aortic Valve Aortic Stenosis V1 0.97m/s AO Mean GR. 9mmHg V2 2.11m/s AO Peak GR. 18mmHg LVOT Diameter 1.9 (1.8-2.4cm) Doppler RODRI 1.30cm2 AI P 1/2 Time 465.28ms Pulmonic Valve V2 1.12m/s Tricuspid Valve TR Velocity 2.63m/s RVSP 31mmHg Conclusion lvef 50-55% dilated LV cavity mild RV Enlarged severe biatrial enalrgement restrictive LV filling pattern mild to moderate mitral regurg Condition at Discharge: Stable Final Diagnosis/Problems List Acute on chronic hypoxic respiratory failure, due to below: COPD exacerbation, possible Acute on chronic systolic heart failure (improved ejection fraction), possible History of AFib, currently sinus rhythm Chest pain, possible cardiac Hypertensive urgency History of Chronic kidney disease Diabetes mellitus History of CVA Cellulitis, left leg, possible Discharge Disposition: Home Discharge Instruct/Medications Diet: Consistent carbohydrate, Cardiac 2g Na,low cholest, Renal Activity: No Restrictions, As Tolerated Follow Up/Referral: Follow with PCP in 1 week Follow-up with cardiology outpatient Follow-up with vascular surgery outpatient Medications: Complete Augmentin 875 mg twice daily course for 5 days Care Plan: Follow with PCP in 1 week Follow-up with cardiology outpatient Follow-up with vascular surgery outpatient Complete Augmentin 875 mg twice daily course for 5 days Scheduled Alendronate Sodium (Alendronate Sodium), 1 TAB PO QWEEKLY, (Reported) Amoxicillin & Pot Clavulanate (Augmentin Tablet), 875 MG PO BID Atorvastatin Calcium (Lipitor), 1 TAB PO DAILY, (Reported) Cholecalciferol (Vitamin D3), 1 TAB PO DAILY, (Reported) Clopidogrel Bisulfate (Clopidogrel), 1 TAB PO HS, (Reported) Duloxetine Hcl (Cymbalta), 1 CAP PO HS, (Reported) Furosemide (Furosemide), 1 TAB PO BID, (Reported) Gabapentin (Gabapentin), 2 CAP PO TID, (Reported) Glipizide (Glipizide), 1 TAB PO DAILY, (Reported) Hydrocodone-Acetaminophen (Hydrocodone Bitartrate/AC 10-325 mg), 1 TAB PO Q8HR, (Reported) Hydroxyzine Hcl (Hydroxyzine Hcl), 1 TAB PO BID, (Reported) Metoprolol Succinate (Metoprolol Succinate Er), 1 TAB PO DAILY, (Reported) Mirtazapine (Mirtazapine Oral Disintegrating Tablet), 1 TAB PO DAILY, (Reported) Pantoprazole Sodium Sesquihydr (Pantoprazole Sodium), 40 MG PO BID Sertraline Hcl (Sertraline Hcl), 1.5 TAB PO QAM, (Reported) Spironolactone (Spironolactone), 1 TAB PO DAILY, (Reported) Sucralfate (Sucralfate), 1 TAB PO BID, (Reported) Zonisamide (Zonisamide), 6 CAP PO HS, (Reported) Discontinued Medications Spironolactone (Spironolactone), 1 TAB PO DAILY, (Reported) Discontinued Reason: Prescription changed Discharge Statement: "Patient was advised to return to the ER or call 911 if any headaches, dizziness, shortness of breath, chest pain, abdominal pain, bleeding, fevers, or worsening of medical condition. Patient was counseled about treatment plan, medications, possible side effects, patientverbalized understanding. All questions were answered to the best of my ability. This discharge took greater then 30 minutes in planning, reviewing documentation, counseling the patient, and discussing with other team members." ASSESSMENT ASSESSMENT Assessment Date of Service: Apr 23, 2025 Billing Provider: JESSICA SALEH MD Common Visit Codes: 77624-LGD/OBS DISCH DAY >30min EDILBERTO CHARLES RESIDENT Apr 23, 2025 15:57 JESSICA SALEH MD Apr 24, 2025 14:06
[2025-04-23] MEDS ORDERED: AUG875T PO (15:58)
[2025-04-24] MEDS ORDERED: FUROSEMIDE 20 MG/2 ML VIAL IV SCH (10:00)
== END 2025-04-23 18:54 | disposition home or self-care (01) | DRG 291 ==
LOC: ER 14:20 → EDBD 14:20 → OVERFLOW 19:38 → WEST WING 19:44 → TELE-WESTW 04-22 22:21
PROVIDERS: ADMIT Student in an Organized Health Care Education/Training Program; ATTEND Student in an Organized Health Care Education/Training Program
DX: I13.0 Hypertensive heart and chronic kidney disease with heart failure and stage 1 through stage 4 chronic kidney disease, or unspecified chronic kidney disease (principal); I50.23 Acute on chronic systolic (congestive) heart failure; J96.21 Acute and chronic respiratory failure with hypoxia; L03.116 Cellulitis of left lower limb; J44.1 Chronic obstructive pulmonary disease with (acute) exacerbation; E11.22 Type 2 diabetes mellitus with diabetic chronic kidney disease; N18.9 Chronic kidney disease, unspecified; I16.0 Hypertensive urgency; E78.5 Hyperlipidemia, unspecified; I48.91 Unspecified atrial fibrillation; I25.10 Atherosclerotic heart disease of native coronary artery without angina pectoris; Z90.710 Acquired absence of both cervix and uterus; Z95.1 Presence of aortocoronary bypass graft; Z90.49 Acquired absence of other specified parts of digestive tract; I25.2 Old myocardial infarction; Z87.442 Personal history of urinary calculi; Z86.73 Personal history of transient ischemic attack (TIA), and cerebral infarction without residual deficits
CPT/HCPCS: 36415; 71045; 80048; 80053; 82728; 82962; 83540; 83550; 83735; 83880; 84443; 84484; 85025; 85379; 86803; 87340; 93005; 93306; 93970; 97163; G0378; J1815

== ENCOUNTER 2025-06-03 10:05 | Outpatient (CLI) | payer OTHER, MEDICAID ==
[~2025-06-03] VITALS: Ht 161.3 cm; Wt 77.1 kg
[~2025-06-03 10:05] MED LIST changes: -ACYC400T16 PO; +AUG875T PO; -AZIT500T66 PO; -LEVO500T91 PO; -SPIR25TA8 PO; -SUCR1TAB31 PO
[2025-06-03] MEDS ORDERED: ADENOSINE 90 MG/30 ML INJ IV ONE (10:54)
[2025-06-03] MEDS ORDERED: ADENOSINE 65 MG in GIVE UN-DILUTED 0 ML IV ONE (14:00)
== END 2025-06-03 17:00 | disposition home or self-care (01) ==
LOC: Rad HDHVI 10:05
PROVIDERS: ATTEND Internal Medicine Cardiovascular Disease
DX: Z01.810 Encounter for preprocedural cardiovascular examination (principal); I49.3 Ventricular premature depolarization; I49.1 Atrial premature depolarization; I13.0 Hypertensive heart and chronic kidney disease with heart failure and stage 1 through stage 4 chronic kidney disease, or unspecified chronic kidney disease; E11.22 Type 2 diabetes mellitus with diabetic chronic kidney disease; I50.20 Unspecified systolic (congestive) heart failure; N18.31 Chronic kidney disease, stage 3a; I25.10 Atherosclerotic heart disease of native coronary artery without angina pectoris; I25.2 Old myocardial infarction; E78.00 Pure hypercholesterolemia, unspecified; R94.31 Abnormal electrocardiogram [ECG] [EKG]; J44.9 Chronic obstructive pulmonary disease, unspecified; E11.42 Type 2 diabetes mellitus with diabetic polyneuropathy; Z82.49 Family history of ischemic heart disease and other diseases of the circulatory system; Z18.31 Retained animal quills or spines
CPT/HCPCS: 78452; 93017; A9500; J0153

== ENCOUNTER 2025-06-04 13:48 | Outpatient (CLI) | payer OTHER, MEDICAID | END 2025-06-04 17:00 | disposition home or self-care (01) | LOC: Rad HDHVI 13:48 | PROVIDERS: ATTEND Internal Medicine Cardiovascular Disease | DX: I08.3 Combined rheumatic disorders of mitral, aortic and tricuspid valves (principal); I50.20 Unspecified systolic (congestive) heart failure; E78.5 Hyperlipidemia, unspecified | CPT/HCPCS: 93306 ==